=== PATIENT | male | born 1945 | race Caucasian/White ===

== ENCOUNTER 2016-09-06 10:34 | Inpatient (IN) ==
[2016-09-06 11:16] LABS: Basophils % 0.2 %; Eosinophils % 0.4 %; Hematocrit 49.1 % (37.5-50.1); Hemoglobin 16.6 g/dL (12.9-16.9); Immature Granulocytes % 0.5 % (0-4); Lymphocytes # 1.2 K/mcL (0.6-4.6); Lymphocytes % 11.3 %; Mean Corpuscular HGB Conc 33.8 g/dL (31.6-35.5); Mean Corpuscular Hemoglobin 31.7 pg (28.0-33.3); Mean Corpuscular Volume 93.7 fL (83.0-100.0); Mean Platelet Volume 10.4 fL (9.4-12.4); Monocytes % 9.1 %; Neutrophils # 8.2 K/mcL (1.6-8.9); Platelet Count 212 K/mcL (140-400); Red Blood Count 5.24 M/mcL (4.19-5.50); Red Cell Distribution Width 13.6 % (11.5-14.5); Segmented Neutrophils % 78.5 %
[2016-09-06] MEDS ORDERED: Clindamycin 600 MG/50 ML 600 MG/50 ML IV.SOLN IVPB ONE (11:16)
[2016-09-06 11:32] LABS: Alanine Aminotransferase 43 Units/L (0-55); Albumin 3.4 g/dL (3.5-5.0); Alkaline Phosphatase 104 Units/L (38-126); Aspartate Amino Transferase 23 Units/L (5-34); BUN/Creatinine Ratio 14 (6-26); Bilirubin,Total 0.7 mg/dL (0.2-1.2); Blood Urea Nitrogen 19 mg/dL (8-26); Calcium 9.4 mg/dL (8.6-10.8); Carbon Dioxide 22 mEq/L (19-29); Chloride 106 mEq/L (98-109); Globulin 3.3 g/dL (2.4-3.5); Glucose 157 mg/dL (70-99); Osmolality,Calculated 292 (280-300); Potassium 4.1 mEq/L (3.5-4.5); Sodium 138 mEq/L (136-145); Total Protein 6.7 g/dL (6.0-8.3); eGFR For African Americans > 60 (> 60); eGFR For Non-African Americans 51 (> 60)
[2016-09-06 12:37] LABS: C-Reactive Protein 7 mg/L (Less than 5)
[2016-09-06] MEDS ORDERED: 0.9 % Sodium Chloride 1,000 ML IVC ONE (12:46)
--- NOTE | 2016-09-06 12:52 | Emergency Department Note ---
Disposition Clinical Impression: Cellulitis Qualifiers: Site of cellulitis: extremity Site of cellulitis of extremity: lower extremity Laterality: left Qualified Code(s): L03.116 - Cellulitis of left lower limb Disposition: Admitted As Inpatient Condition: Good Referrals: Alfonso Shane MD [Primary Care Provider] - Forms: ED Satisfaction Letter Wound/Laceration HPI - General Chief Complaint: ED Wound/Laceration Stated Complaint: Wound Check Time Seen by Provider: 09/06/16 10:41 Source: patient, family Limitations: no limitations Nursing Notes Reviewed: Yes Vital Signs Reviewed: Yes - History of Present Illness HPI Narrative: Patient complains of wound to his left ankle has been going on for approximately 10 days. Patient states he seen his primary care physician 3 times for this states there is good worsen. Patient was started on Bactrim and Keflex 2 days ago he states his symptoms worse. Patient denies fevers or chills denies shortness of breath denies numbness and tingling. Patient denies prior history of similar symptoms. Written old areas swollen appears to be going down his leg. - Related Data Home Medications Medication Instructions Recorded Confirmed Aspirin 81 tab PO DAILY 02/03/15 09/06/16 Brimonidine 0.2% [Alphagan] 1 drop BOTH EYES BID 02/03/15 09/06/16 Cholecalciferol (Vitamin D3) 1 cap PO DAILY 02/03/15 09/06/16 [Vitamin D3] Finasteride [Proscar] 5 mg PO DAILY 02/03/15 09/06/16 GlipiZIDE XL (24 HR) [Glucotrol XL] 5 mg PO DAILY 02/03/15 09/06/16 Latanoprost [Xalatan] 1 drop BOTH EYES HS 02/03/15 09/06/16 Metformin HCl [Fortamet] 1,000 mg PO BID 02/03/15 09/06/16 Nebivolol [Bystolic] 2.5 mg PO DAILY 02/03/15 09/06/16 Ramipril [Altace] 5 mg PO DAILY 02/03/15 09/06/16 [place] Oil/[place]-3 Fatty Acids 1 cap PO DAILY 02/03/15 09/06/16 [Fish Oil 500 mg Softgel] Tamsulosin [Flomax] 0.4 mg PO DAILY 02/03/15 09/06/16 Cyclosporine [Restasis] 1 drop BOTH EYES BID 07/10/15 09/06/16 Fluticasone Propionate Nasal 50 mcg NS BID 07/10/15 09/06/16 [Flonase] Doxycycline 100 mg PO BID 09/06/16 09/06/16 Furosemide [Lasix] 20 mg PO DAILY PRN 09/06/16 09/06/16 Gabapentin [Neurontin] 100 mg PO HS PRN 09/06/16 09/06/16 Ipratropium/Albuterol Neb [Duoneb] 3 ml IH Q6HR 09/06/16 09/06/16 PredniSONE 10 mg PO DAILY 09/06/16 09/06/16 Sulfamethoxazole/Trimeth DS 1 tab PO BID 09/06/16 09/06/16 [Bactrim DS] Previous Rx's Medication Instructions Recorded Albuterol Sulfate [Albuterol 1 puff IH Q4HR PRN #1 puff 02/05/15 Inhaler] Allergies Allergy/AdvReac Type Severity Reaction Status Date / Time Shoqjvw-[id number]-Gwu Reductase Allergy See Verified 09/06/16 10:35 Inhibitor Comments [Statins] All systems ED: reviewed and negative except as stated. Past Medical History - Past Medical History Source: patient Medical history: Reports: cancer, COPD, diabetes, glaucoma, hyperlipidemia, hypertension, myocardial infarction Surgical history: Reports: knee replacement, other Psychiatric history: Reports: no psych history - Social History Smoking Status: Former smoker Smokeless Tobacco Status: No Alcohol use: Reports: occasionally Drug use: Reports: none Physical Exam - General Limitations: no limitations General appearance: alert - Head Head exam: atraumatic, normocephalic, normal inspection - Eye Eye exam: Present: normal appearance, PERRL, EOMI - ENT ENT exam: normal exam, normal oropharynx, mucous membranes moist - Neck Neck exam: Present: normal inspection, full ROM, trachea midline - Chest Chest inspection: Present: normal inspection, symmetric chest wall rise - Respiratory Respiratory exam: Present: normal lung sounds bilaterally - Cardiovascular Cardiovascular exam: Present: regular rate, normal rhythm, normal heart sounds - Abdominal Exam Abdominal exam: Present: soft, Non-Tender. Absent: tenderness, distention, guarding, rebound, rigidity - Extremities Exam Extremities exam: Present: normal inspection, full ROM. Absent: tenderness, pedal edema - Back Exam Back exam: Present: normal inspection, full ROM. Absent: tenderness - Neurological Exam Neurological exam: Present: alert, oriented X3 - Psychiatric Psychiatric exam: Present: normal affect, normal mood - Skin Skin exam: Present: warm, dry, intact, erythema Course Vital Signs Temperature 98.4 F 09/06/16 10:35 Pulse Rate 97 09/06/16 10:35 Respiratory Rate 22 09/06/16 10:35 Blood Pressure 123/81 09/06/16 10:35 O2 Sat by Pulse Oximetry 91 L 09/06/16 10:35 Temperature 98.4 F 09/06/16 10:35 Pulse Rate 71 09/06/16 12:09 Respiratory Rate 18 09/06/16 12:09 Blood Pressure 121/61 09/06/16 12:09 O2 Sat by Pulse Oximetry 93 L 09/06/16 12:09 Oxygen Delivery Oxygen Delivery Nasal Cannula Wound/Laceration - Differential Diagnosis Differential Diagnosis: Likely: abscess, abrasion, foreign body - Lab Data Lab results reviewed: Yes I reviewed the patient's lab results. Result diagrams: 09/06/16 11:10 09/06/16 11:10 Lab Results 09/06/16 09/06/16 09/06/16 Range/Units 11:10 11:10 11:10 WBC 10.4 (4.3-11.1) K/mcL RBC 5.24 (4.19-5.50) M/mcL Hgb 16.6 (12.9-16.9) g/dL Hct 49.1 (37.5-50.1) % MCV 93.7 (83.0-100.0) fL MCH 31.7 (28.0-33.3) pg MCHC 33.8 (31.6-35.5) g/dL RDW 13.6 (11.5-14.5) % Plt Count 212 (140-400) K/mcL MPV 10.4 (9.4-12.4) fL Immature Gran % 0.5 (0-4) % Seg Neutrophils % 78.5 % Lymphocytes % 11.3 % Monocytes % 9.1 % Eosinophils % 0.4 % Basophils % 0.2 % Neutrophils # 8.2 (1.6-8.9) K/mcL Lymphocytes # 1.2 (0.6-4.6) K/mcL Monocytes # 1.0 (0.0-1.3) K/mcL Eosinophils # 0.0 (0.0-0.6) K/mcL Basophils # 0.0 (0.0-0.2) K/mcL ESR (0-10) mm/hr Sodium 138 (136-145) mEq/L Potassium 4.1 (3.5-4.5) mEq/L Chloride 106 (98-109) mEq/L Carbon Dioxide 22 (19-29) mEq/L BUN 19 (8-26) mg/dL Creatinine 1.38 H (0.72-1.25) mg/dL Est GFR ( Amer) > 60 (> 60) Est GFR (Non-Af Amer) 51 L (> 60) BUN/Creatinine Ratio 14 (6-26) Glucose 157 H (70-99) mg/dL Calculated Osmolality 292 (280-300) Lactic Acid 3.7 H (0.5-2.2) mmol/L Calcium 9.4 (8.6-10.8) mg/dL Total Bilirubin 0.7 (0.2-1.2) mg/dL AST 23 (5-34) Units/L ALT 43 (0-55) Units/L Alkaline Phosphatase 104 (38-126) Units/L C-Reactive Protein 7 H (Less than 5) mg/L Serum Total Protein 6.7 (6.0-8.3) g/dL Albumin 3.4 L (3.5-5.0) g/dL Globulin 3.3 (2.4-3.5) g/dL Albumin/Globulin Ratio 1.0 L (1.1-2.2) 09/06/16 Range/Units 11:10 WBC (4.3-11.1) K/mcL RBC (4.19-5.50) M/mcL Hgb (12.9-16.9) g/dL Hct (37.5-50.1) % MCV (83.0-100.0) fL MCH (28.0-33.3) pg MCHC (31.6-35.5) g/dL RDW (11.5-14.5) % Plt Count (140-400) K/mcL MPV (9.4-12.4) fL Immature Gran % (0-4) % Seg Neutrophils % % Lymphocytes % % Monocytes % % Eosinophils % % Basophils % % Neutrophils # (1.6-8.9) K/mcL Lymphocytes # (0.6-4.6) K/mcL Monocytes # (0.0-1.3) K/mcL Eosinophils # (0.0-0.6) K/mcL Basophils # (0.0-0.2) K/mcL ESR 29 H (0-10) mm/hr Sodium (136-145) mEq/L Potassium (3.5-4.5) mEq/L Chloride (98-109) mEq/L Carbon Dioxide (19-29) mEq/L BUN (8-26) mg/dL Creatinine (0.72-1.25) mg/dL Est GFR ( Amer) (> 60) Est GFR (Non-Af Amer) (> 60) BUN/Creatinine Ratio (6-26) Glucose (70-99) mg/dL Calculated Osmolality (280-300) Lactic Acid (0.5-2.2) mmol/L Calcium (8.6-10.8) mg/dL Total Bilirubin (0.2-1.2) mg/dL AST (5-34) Units/L ALT (0-55) Units/L Alkaline Phosphatase (38-126) Units/L C-Reactive Protein (Less than 5) mg/L Serum Total Protein (6.0-8.3) g/dL Albumin (3.5-5.0) g/dL Globulin (2.4-3.5) g/dL Albumin/Globulin Ratio (1.1-2.2) - Radiology Data Radiology results reviewed: Yes I reviewed the patient's radiology results. Ankle X-Ray 09/06/16 11:01 IMPRESSION: No acute bony abnormalities. No x-ray evidence for osteomyelitis. Soft tissue swelling about the ankle. Clinically described sore to the medial left ankle not definitely evident radiographically. No soft tissue gas. D/ / 09/06/2016 11:59:33 Armando English MD / cydney Interpreting Provider: Armando English MD Critical Care Time Total Critical Care Time: 30 Attestation: Critical care performed: Time is exclusive of separately billable procedures. Time includes: direct patient care, patient reassessment, coordination of patient care, interpretation of data (laboratory data, radiology data, and respiratory data), review of patient's medical records, medical consultation and documentation of patient care. Procedures included in critical care time: Procedures excluded from critical care time:
[2016-09-06] MEDS ORDERED: Ipratropium/Albuterol Neb 3 ML IH ONE (14:00)
[2016-09-06] MEDS ORDERED: Naloxone 0.4 MG/ML INJ IVP PRN (17:43)
[2016-09-06] MEDS: Ipratropium/Albuterol Neb 3 ML IH SCH ×2 (18:12→22:03)
[2016-09-06] MEDS ORDERED: D5% in Water 1,000 ML IVC PRN (18:44)
[2016-09-06] MEDS ORDERED: Dextrose Gel 15 GM PO PRN ×2 (18:44)
[2016-09-06] MEDS ORDERED: *HR* Dextrose 50 % in Water (Syg) 50 ML SYRINGE IVP PRN (18:44)
--- NOTE | 2016-09-06 18:44 | Internal Med History&Physical ---
<Iman Sylvester - Last Filed: 09/06/16 18:58> Date of Encounter: 09/06/16 Time of Encounter: 17:00 Assessment and Plan (1) Cellulitis Current visit: Yes Status: Acute 1 presented with wound to left tibial area 1.5-2 cm in diameter. Started approximately 2 weeks ago as a blister he has been followed as an outpatient and been on Bactrim without any improvement. X-ray did reveal no soft tissue gas only soft tissue swelling about the ankle. Concerns for cellulitis we will consult podiatry 2 started on vancomycin and Unasyn 3 we will monitor CBC Qualifiers: Site of cellulitis: extremity Site of cellulitis of extremity: lower extremity Laterality: left Qualified Code(s): L03.116 - Cellulitis of left lower limb (2) MARGARITA (acute kidney injury) Current visit: Yes Status: Acute 1 present creatinine is 1.38 baseline appears to be less than 1. Patient has been on Bactrim as well as metformin glyburide and BERNARDINO inhibitor. We will hold these medications for now will give IV fluid overnight recheck creatinine in a.m. 2 avoid nephrotoxins 3 August her intake and output (3) DVT prophylaxis Current visit: Yes Status: Acute 1 Lovenox (4) History of coronary artery disease Current visit: No Status: Acute 1 patient has history of coronary artery disease with stent placement will continue with aspirin and statin beta jennifer will hold BERNARDINO inhibitor for now due to elevated creatinine (5) Diabetes Current visit: No Status: Chronic Patient has history of type 2 diabetes he is on metformin and glyburide at home. We will hold for now lactate is 3.7 creatinine 1.38. We will give IV fluids Accu-Cheks before meals at bedtime with sliding scale insulin as needed maintain postprandial less than 180 Qualifiers: Diabetes mellitus type: type 2 Diabetes mellitus complication status: without complication Diabetes mellitus custodial insulin use: without custodial use Qualified Code(s): E11.9 - Type 2 diabetes mellitus without complications Internal Medicine - H&P: HPI Chief complaint: Wound to left ankle Admitted From: Emergency Dept Plans for Post Hospital Care: Home History of present illness: Mr. Starks is a 71 year old male with medical history of diabetes coronary artery disease hypertension and CHF COPD. Patient has been experiencing a wound to left ankle for approximately 10 days. He states it started out as a blister that he is putting his socks only opened and has grown since then. He has been followed by his primary care physician and has been receiving Bactrim and Keflex for approximately 2 days without any improvement it seems to have worsened. He denies any fevers chills shortness of breath nausea vomiting or diarrhea. He presented to the ER with above complaints. Overall the ER lab work was obtained which did not show any leukocytosis however it did show elevated creatinine 1.3 a as well as a lactate of 3.7. X-rays of right ankle did reveal soft tissue swelling however no soft tissue gas noted. Patient was given clindamycin spending for further workup and evaluation. Upon assessment patient denies any pain or discomfort. He has his left foot elevated on a like it there is a round wound approximately 1.5-2 cm in diameter that has a hardened yellow area in the center with redness surrounding tissue there is no streaking the left foot is swollen is warm has brisk capillary refill palpable pulses. At present time patient appears to be hemodynamically stable. I reviewed this case with Dr. Stringer who agrees with plan Past Med Surg Social Fam HX - Past Medical History Medical history: cancer, COPD, diabetes, glaucoma, hyperlipidemia, hypertension , myocardial infarction Psychiatric history: no psych history - Past Surgical History Surgical History: knee replacement, other - Social History Smoking Status: Former smoker Smokeless Tobacco Status: No Alcohol use: occasionally Drug use: none - Family History Mother Age at : 98 Cause of : natural causes Hx Family Cardiac Disorders: No Hx Family Respiratory Disorders: No Hx Family Cancer: No Hx Family GI Disorders: No Hx Family Genitourinary Disorders: No Hx Family Endocrine Disorder: No Hx Family Musculoskeletal Disorders: No Hx Family Neuromuscular Disorders: No Hx Family Neurologic Disorders: No Hx Family HEENT Disorders: No Hx Family Autoimmune Disorders: No Hx Family Reproductive Disorders: No Hx Family Psychosocial Disorders: No Hx Family Medical Disorders: No Father Adopted: No Family Member Ethnicity: Non- Living Status: Age at : 84 Cause of : CHF Hx Family Cardiac Disorders: Yes Hx Family Respiratory Disorders: No Hx Family Cancer: No Hx Family GI Disorders: No Hx Family Genitourinary Disorders: No Hx Family Endocrine Disorder: No Hx Family Musculoskeletal Disorders: No Hx Family Neuromuscular Disorders: No Hx Family Neurologic Disorders: No Hx Family HEENT Disorders: No Hx Family Autoimmune Disorders: No Hx Family Reproductive Disorders: No Hx Family Psychosocial Disorders: No Hx Family Medical Disorders: No Internal Medicine - H&P: Meds Aspirin 81 tab PO DAILY 02/03/15 [History] Brimonidine 0.2% [Alphagan] 1 drop BOTH EYES BID 02/03/15 [History] Cholecalciferol (Vitamin D3) [Vitamin D3] 1 cap PO DAILY 02/03/15 [History] Finasteride [Proscar] 5 mg PO DAILY 02/03/15 [History] GlipiZIDE XL (24 HR) [Glucotrol XL] 5 mg PO DAILY 02/03/15 [History] Latanoprost [Xalatan] 1 drop BOTH EYES HS 02/03/15 [History] Metformin HCl [Fortamet] 1,000 mg PO BID 02/03/15 [History] Nebivolol [Bystolic] 2.5 mg PO DAILY 02/03/15 [History] Ramipril [Altace] 5 mg PO DAILY 02/03/15 [History] [place] Oil/[place]-3 Fatty Acids [Fish Oil 500 mg Softgel] 1 cap PO DAILY [History] Tamsulosin [Flomax] 0.4 mg PO DAILY 02/03/15 [History] Albuterol Sulfate [Albuterol Inhaler] 1 puff IH Q4HR PRN #1 puff 02/05/15 [Rx] Cyclosporine [Restasis] 1 drop BOTH EYES BID 07/10/15 [History] Fluticasone Propionate Nasal [Flonase] 50 mcg NS BID 07/10/15 [History] Doxycycline 100 mg PO BID 09/06/16 [History] Furosemide [Lasix] 20 mg PO DAILY PRN 09/06/16 [History] Gabapentin [Neurontin] 100 mg PO HS PRN 09/06/16 [History] Ipratropium/Albuterol Neb [Duoneb] 3 ml IH Q6HR 09/06/16 [History] PredniSONE 10 mg PO DAILY 09/06/16 [History] Sulfamethoxazole/Trimeth DS [Bactrim DS] 1 tab PO BID 09/06/16 [History] Allergies Wsexyqh-Ttw-Nus Reductase Inhibitor [Statins] Allergy (Verified 09/06/16 10:35) See Comments foot, ankle pain sore throat All Systems PM: A 10-system review of systems was performed and is negative for pertinent findings except as documented above in the HPI. - Constitutional Constitutional: no chills, no fever(s), no night sweats - EENT Eyes: no change in vision, no discharge, no pain, no photophobia Nose, mouth and throat: no dysphagia, no nasal discharge, no neck pain, no sore throat - Cardiovascular Cardiovascular ROS IM: no chest pain, no diaphoresis, no dyspnea, no lightheadedness, no palpitations, no syncope - Respiratory Respiratory: no cough, no dyspnea, no wheezing, no excessive phlegm production - Gastrointestinal Gastrointestinal: no abdominal pain, no diarrhea, no hematemesis, no hematochezia, no melena, no nausea, no vomiting - Integumentary Integumentary IM: non-healing lesions, skin ulcer - Neurological Neurological ROS: no confusion, no convulsions, no focal weakness, no numbness, no tingling, no tremor(s) - Constitutional Vitals: Temp Pulse Resp BP Pulse Ox 98.0 F 91 16 127/61 91 L 09/06/16 15:09 09/06/16 15:09 09/06/16 18:14 09/06/16 15:09/06/16 18:14 General appearance: Present: A&O X 3 - Head Head exam: Present: atraumatic, normocephalic - Eye Eye exam: Present: PERRL, conjuntiva pink, sclera anicteric Pupils: Present: PERRL - Neck Neck exam general surgery: Present: supple, trachea midline. Absent: lymphadenopathy - Respiratory Respiratory exam: Present: CTAB. Absent: accessory muscle use, rales, rhonchi, wheezes - Cardiovascular Cardiovascular exam: Present: RRR, +S1, +S2. Absent: diastolic murmur, gallop, rubs, systolic murmur - GI/Abdominal GI/Abdominal exam: Present: normal bowel sounds, soft, no peritoneal signs. Absent: distended, tenderness - Extremities Exam Extremities exam: Present: warm, radial pulses palpable and symetrical. Absent : calf tenderness, cyanotic, pedal edema - Expanded Lower Extremities Exam Ankle exam: Present: abrasion, swelling (Wound to left tibial area) - Neurological Exam Neurological exam: Present: CN II-XII intact, oriented X3, no focal deficits. Absent: pronater drift, facial droop, speech deficit - Skin Skin exam: Present: dry, erythema, intact Internal Med - H&P Results - Labs CBC & Chem 7: 09/06/16 11:10 09/06/16 11:10 - Diagnostic Studies Other Images Additional comments: Ankle X-Ray 09/06/16 11:01 IMPRESSION: No acute bony abnormalities. No x-ray evidence for osteomyelitis. Soft tissue swelling about the ankle. Clinically described sore to the medial left ankle not definitely evident radiographically. No soft tissue gas. D/ / 09/06/2016 11:59:33 Armando English MD / cydney Interpreting Provider: Armando English MD <Dg Stringer - Last Filed: 09/06/16 19:11> Internal Medicine - H&P: HPI History of present illness: Mr. Starks is a 71 year old male All Systems PM: A 10-system review of systems was performed and is negative for pertinent findings except as documented above in the HPI. - Constitutional Vitals: Temp Pulse Resp BP Pulse Ox 97.9 F 88 16 111/54 91 L 09/06/16 19:03 09/06/16 19:03 09/06/16 19:03 09/06/16 19:03 09/06/16 19:03 Internal Med - H&P Results - Labs CBC & Chem 7: 09/06/16 11:10 09/06/16 11:10 - Attending Attestation I examined this patient and my medical decision-making was reviewed with the Advanced Practice Nurse on 09/06/16. I agree with the documented findings, disposition and treatment plan as described except to the extent set forth below. Mr. Flores is a 71 y/o male presented to ED due to nonhealing wound on L medial malleolus. Pt stated it began with a blister that came off with his sock. It had progressed to an open area and he took 3 days of PO abx. It worsened so he came to ED. In ED he was evaluated and admitted. Exam Alert. Comfortable Heart reg Lungs clear L medial malleolus - approx 2cm diameter wound with raised edges. Erythema - no fluctuance or crepitus. Foot warm. I/P 1. Cellulitis 2. Wound Podiatry eval. IV abx Further diagnoses and plan as detailed above in H&P
[2016-09-06 19:21] LABS: Hemoglobin A1C 9.2 %
[2016-09-06] MEDS ORDERED: Latanoprost 2.5 ML BOTTLE BOTH EYES SCH (21:00)
[2016-09-06] MEDS ORDERED: (Cyclosporine [Restasis] 1 DROP) OP SCH (21:00)
[2016-09-06] MEDS: 0.9 % Sodium Chloride 1,000 ML IVC SCH (21:28)
[2016-09-06] MEDS: Fluticasone Propionate Nasal 50 MCG/SPRAY BOTTLE NS SCH (21:28)
[2016-09-06] MEDS: Insulin LISPRO 300 UNITS/3 ML VIAL SQ SCH (21:29)
[2016-09-06] MEDS: Latanoprost 2.5 ML BOTTLE OP SCH (21:47)
[2016-09-06] MEDS ORDERED: Vancomycin 1,250 MG in D5% in Water 250 ML IVPB SCH (22:00)
[2016-09-06] MEDS: Finasteride 5 MG TABLET PO SCH (23:11)
[2016-09-07] MEDS: Ampicillin/Sulbactam 3,000 MG in 0.9 % Sodium Chloride Mini Bag 100 ML IVPB SCH ×4 (00:52→17:40)
[2016-09-07] MEDS: Ipratropium/Albuterol Neb 3 ML IH SCH ×4 (03:44→20:52)
[2016-09-07 04:48] LABS: Basophils % 0.2 %; Eosinophils % 0.4 %; Hematocrit 44.1 % (37.5-50.1); Immature Granulocytes % 0.5 % (0-4); Lymphocytes % 23.5 %; Mean Corpuscular HGB Conc 33.1 g/dL (31.6-35.5); Mean Corpuscular Hemoglobin 31.2 pg (28.0-33.3); Mean Corpuscular Volume 94.2 fL (83.0-100.0); Mean Platelet Volume 10.8 fL (9.4-12.4); Monocytes # 0.8 K/mcL (0.0-1.3); Monocytes % 10.1 %; Neutrophils # 5.5 K/mcL (1.6-8.9); Platelet Count 189 K/mcL (140-400); Red Blood Count 4.68 M/mcL (4.19-5.50); Red Cell Distribution Width 13.5 % (11.5-14.5); Segmented Neutrophils % 65.3 %
[2016-09-07 04:49] LABS: Hemoglobin 14.6 g/dL (12.9-16.9)
[2016-09-07 04:58] LABS: BUN/Creatinine Ratio 16 (6-26); Blood Urea Nitrogen 16 mg/dL (8-26); Calcium 8.7 mg/dL (8.6-10.8); Carbon Dioxide 20 mEq/L (19-29); Chloride 112 mEq/L (98-109); Glucose 116 mg/dL (70-99); Osmolality,Calculated 296 (280-300); Potassium 4.1 mEq/L (3.5-4.5); Sodium 142 mEq/L (136-145); eGFR For African Americans > 60 (> 60); eGFR For Non-African Americans > 60 (> 60)
[2016-09-07] MEDS ORDERED: Vancomycin (wt based) 1,000 MG VIAL IVPB SCH (06:00)
[2016-09-07] MEDS: *HR* Heparin 5,000 UNIT/ML VIAL SQ SCH ×2 (06:13→17:39)
[2016-09-07] MEDS: Insulin LISPRO 300 UNITS/3 ML VIAL SQ SCH ×4 (08:45→21:38)
[2016-09-07] MEDS: Cholecalciferol (D-3) 1,000 UNIT TABLET PO SCH (08:55)
[2016-09-07] MEDS: Aspirin 81 MG TAB.CHEW PO SCH (08:55)
[2016-09-07] MEDS: Fluticasone Propionate Nasal 50 MCG/SPRAY BOTTLE NS SCH ×2 (08:56→21:38)
[2016-09-07] MEDS: predniSONE 20 MG TABLET PO SCH (08:56)
[2016-09-07] MEDS: (Salmon Oil/Omega-3 Fatty Acids [Fish Oil 500 Mg Soft PO SCH (08:56)
[2016-09-07] MEDS ORDERED: Gabapentin 100 MG CAPSULE PO PRN (09:14)
[2016-09-07] MEDS: Vancomycin 1,000 MG in D5% in Water 250 ML IVPB SCH ×2 (13:28→13:43)
--- NOTE | 2016-09-07 18:12 | Internal Med Progress Note ---
Date of Encounter: 09/07/16 Time of Encounter: 10:30 - Assessment and plan (1) Cellulitis Current Visit: Yes Status: Acute Assessment and plan: Podiatry on board. No leukocytosis. Mild lactic acidosis noted, trending down. Vital signs are stable. Inflammatory markers elevated, will trend. Continue Unasyn and vancomycin. Plain films negative for osteomyelitis. Acute kidney injury resolved. We will defer to podiatry recommendations. Distal pulses weak but capillary refill brisk ITS Impressions Ankle X-Ray 09/06/16 11:01 IMPRESSION: No acute bony abnormalities. No x-ray evidence for osteomyelitis. Soft tissue swelling about the ankle. Clinically described sore to the medial left ankle not definitely evident radiographically. No soft tissue gas. D/ / 09/06/2016 11:59:33 Armando English MD / cydney Interpreting Provider: Armando English MD Qualifiers: Site of cellulitis: extremity Site of cellulitis of extremity: lower extremity Laterality: left Qualified Code(s): L03.116 - Cellulitis of left lower limb (2) Lactic acidosis Current Visit: Yes Status: Acute Assessment and plan: Trending down, will monitor (3) Diabetes Current Visit: No Status: Chronic Assessment and plan: Uncontrolled with an A1c of 9.2%. Continue tight glycemic control while admitted. Continue sliding scale, home medications have been held. Patient endorsing noncompliance with his home regimen. 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 On examination, patient resting supine in bed. Patient denies pain at this time. He states his wound hurts in the middle but not around the edges. He states he is eating well and denies concerns. - Constitutional Vitals: Temp Pulse Resp BP Pulse Ox 98.4 F 70 16 113/66 93 L 09/07/16 16:28 09/07/16 16:28 09/07/16 16:28 09/07/16 16:28 09/07/16 16:28 General appearance: Present: A&O X 3, pleasant, no acute distress, answers questions appropriately - Head Head exam: Present: atraumatic, normocephalic - Eye Eye exam: Present: PERRL, conjuntiva pink, sclera anicteric Pupils: Present: PERRL - Neck Neck exam general surgery: Present: supple, trachea midline. Absent: lymphadenopathy - Respiratory Respiratory exam: Present: CTAB. Absent: accessory muscle use, rales, respiratory distress, rhonchi, wheezes - Cardiovascular Cardiovascular exam: Present: RRR, +S1, +S2. Absent: diastolic murmur, gallop, rubs, systolic murmur - GI/Abdominal GI/Abdominal exam: Present: normal bowel sounds, soft, no peritoneal signs. Absent: distended, tenderness - Extremities Exam Extremities exam: Present: warm, radial pulses palpable and symetrical. Absent : calf tenderness, cyanotic, pedal edema - Expanded Lower Extremities Exam Lower Leg exam: Present: erythema, tenderness. Absent: normal inspection Neuro vascular tendon exam: Present: decreased fine/light touch, pulse deficit ( weak pulse left foot) Gait: Present: not tested/not observed - Neurological Exam Neurological exam: Present: alert, CN II-XII intact, oriented X3, no focal deficits, strengths equal and symetr throughout. Absent: pronater drift, facial droop, speech deficit - Skin Skin exam: Present: dry, intact, normal color, warm - Expanded Skin Exam Type of lesion: Present: abrasion Distribution of rash: Present: LLE Description of rash: Present: crusting, erythematous, tenderness (in center) Internal Medicine: Result - Labs CBC & Chem 7: 09/07/16 04:13 09/07/16 04:13 Labs: Short CBC 09/07/16 Range/Units 04:13 WBC 8.4 (4.3-11.1) K/mcL Hgb 14.6 D (12.9-16.9) g/dL Hct 44.1 (37.5-50.1) % Plt Count 189 (140-400) K/mcL Neutrophils # 5.5 (1.6-8.9) K/mcL BMP 09/07/16 04:13 Sodium 142 Potassium 4.1 Chloride 112 H Carbon Dioxide 20 BUN 16 Creatinine 0.99 Glucose 116 H Calcium 8.7 Consult Discharge Plan - Plan Referrals: Alfonso Shane MD [Primary Care Provider] -
[2016-09-07] MEDS: Finasteride 5 MG TABLET PO SCH (21:37)
[2016-09-07] MEDS: Latanoprost 2.5 ML BOTTLE OP SCH (21:37)
[2016-09-08] MEDS: Ampicillin/Sulbactam 3,000 MG in 0.9 % Sodium Chloride Mini Bag 100 ML IVPB SCH ×4 (02:22→20:37)
[2016-09-08] MEDS: 0.9 % Sodium Chloride 1,000 ML IVC SCH ×4 (02:23→18:14)
[2016-09-08] MEDS: Vancomycin 1,000 MG in D5% in Water 250 ML IVPB SCH ×2 (03:17→15:10)
[2016-09-08] MEDS: Ipratropium/Albuterol Neb 3 ML IH SCH ×4 (04:38→22:32)
[2016-09-08 04:47] LABS: Basophils % 0.1 %; Eosinophils % 0.6 %; Hematocrit 45.6 % (37.5-50.1); Hemoglobin 14.8 g/dL (12.9-16.9); Immature Granulocytes % 0.3 % (0-4); Lymphocytes # 1.8 K/mcL (0.6-4.6); Lymphocytes % 25.9 %; Mean Corpuscular HGB Conc 32.5 g/dL (31.6-35.5); Mean Corpuscular Hemoglobin 30.8 pg (28.0-33.3); Mean Corpuscular Volume 94.8 fL (83.0-100.0); Mean Platelet Volume 10.6 fL (9.4-12.4); Monocytes # 0.6 K/mcL (0.0-1.3); Neutrophils # 4.3 K/mcL (1.6-8.9); Platelet Count 170 K/mcL (140-400); Red Blood Count 4.81 M/mcL (4.19-5.50); Red Cell Distribution Width 13.4 % (11.5-14.5); Segmented Neutrophils % 64.1 %
[2016-09-08 04:52] LABS: BUN/Creatinine Ratio 15 (6-26); Blood Urea Nitrogen 16 mg/dL (8-26); C-Reactive Protein 7 mg/L (Less than 5); Calcium 8.6 mg/dL (8.6-10.8); Carbon Dioxide 21 mEq/L (19-29); Chloride 111 mEq/L (98-109); Glucose 224 mg/dL (70-99); Osmolality,Calculated 296 (280-300); Potassium 3.9 mEq/L (3.5-4.5); Sodium 139 mEq/L (136-145); eGFR For African Americans > 60 (> 60); eGFR For Non-African Americans > 60 (> 60)
[2016-09-08] MEDS: *HR* Heparin 5,000 UNIT/ML VIAL SQ SCH ×2 (05:46→17:10)
[2016-09-08] MEDS: Fluticasone Propionate Nasal 50 MCG/SPRAY BOTTLE NS SCH ×2 (08:20→20:40)
[2016-09-08] MEDS: Insulin LISPRO 300 UNITS/3 ML VIAL SQ SCH ×4 (08:21→20:43)
[2016-09-08] MEDS: Aspirin 81 MG TAB.CHEW PO SCH (08:22)
[2016-09-08] MEDS: predniSONE 20 MG TABLET PO SCH (08:22)
[2016-09-08] MEDS: Cholecalciferol (D-3) 1,000 UNIT TABLET PO SCH (08:22)
[2016-09-08] MEDS: (Salmon Oil/Omega-3 Fatty Acids [Fish Oil 500 Mg Soft PO SCH (08:25)
--- NOTE | 2016-09-08 10:27 | Arterial Study Report ---
LE Arterial Physiologic Study Patient Name:Nilton Starks Order Number:[id number] Procedure Date:09/08/2016 Date:1945ge:71 yrs Gender:Male Lt BP:128 / mmHg Rt.BP:119 / mmHgHeart Rate: Location:[facility] OP Room #: Candy Maker Helper:Wendy Groves Referring MD:Star Daley DPM police officer:Alfonso Shane MD Reading MD:Lisandro Lira MD , [facility] Risk Factors Yes/No Hypertension Yes Diabetes Yes Hypercholesterolemia No Hx of CAD/PTCA Yes Impressions: 1) Right lower extremity waveform demonstrates mildly diminished hemodynamics. 2) Right Ankle Brachial Index demonstrates mildly occlusive disease. 1) Left lower extremity waveform demonstrates moderately diminished hemodynamics. 2) Left Ankle Brachial Index demonstrates moderately occlusive disease. Findings LE Arterial Physiologic Exam: Segmental Pressures: Right: The right high thigh pressure is 183 mmHg with an index of 1.43. The right above knee pressure is 140 mmHg with an index of 1.09. The right below knee pressure is 128 mmHg with an index of 1. The right posterior tibial pressure is 112 mmHg with an index of 0.88. The right dorsalis pedis pressure is 111 mmHg with an index of 0.87. Left: The left high thigh pressure is 112 mmHg with an index of 0.88. The left above knee pressure is 69 mmHg with an index of 0.54. The left below knee pressure is 65 mmHg with an index of 0.51. The left posterior tibial pressure is 82 mmHg with an index of 0.64. The left dorsalis pedis pressure is 76 mmHg with an index of 0.59. PVR: Right: The PVR waveforms are mildly diminished in the right high thigh, right lower thigh, right calf and right ankle. Left: The PVR waveforms are mildly diminished in the left high thigh and left lower thigh and moderately diminished in the left calf and left ankle. Segmental Pressures Side Location Pressure Index Result Right High Thigh 183 1.43 Right Above Knee 140 1.09 Right Below Knee 128 1.00 Right Posterior Tibial 112 0.88 Right Dorsalis Pedis 111 0.87 Left High Thigh 112 0.88 Left Above Knee 69 0.54 Left Below Knee 65 0.51 Left Posterior Tibial 82 0.64 Left Dorsalis Pedis 76 0.59 Ankle Brachial Index Right Systolic Diastolic SHELBY Brachial 119 0.88 Dorsalis Pedis 111 0.87 Posterior Tibial 112 0.88 Left Systolic Diastolic SHELBY Brachial 128 0.64 Dorsalis Pedis 76 0.59 Posterior Tibial 82 0.64 Updated by Lisandro Lira MD, FACS on 09/08/2016 10:22:18 AM with Status of Final Lisandro Lira MD electronically signed on 09/08/2016 10:22:48 AM with status of Final
[2016-09-08] MEDS: Acetaminophen 325 MG TABLET PO PRN (11:29)
--- NOTE | 2016-09-08 14:16 | Internal Med Progress Note ---
Date of Encounter: 09/08/16 Time of Encounter: 12:30 - Assessment and plan (1) Cellulitis Current Visit: Yes Status: Acute Assessment and plan: Podiatry on board. No leukocytosis. Mild lactic acidosis resolved. Vital signs are stable. Inflammatory markers trending down and improving. Continue Unasyn and vancomycin. Plain films negative for osteomyelitis. Acute kidney injury resolved. We will defer to podiatry recommendations for plan of care and antibiotic treatment. Distal pulses weak but capillary refill brisk. Arterial study of lower extremities revealing mild occlusion to right leg/ankle with moderate occlusion to left leg/left ankle. ITS Impressions Ankle X-Ray 09/06/16 11:01 IMPRESSION: No acute bony abnormalities. No x-ray evidence for osteomyelitis. Soft tissue swelling about the ankle. Clinically described sore to the medial left ankle not definitely evident radiographically. No soft tissue gas. D/ / 09/06/2016 11:59:33 Armando English MD / cydney Interpreting Provider: Armando English MD arterial physiological study impressions: Right lower extremity waveform demonstrates mildly diminished hemodynamics. Right ankle-brachial and ask demonstrates mildly occlusive disease. Left lower extremity waveform demonstrates moderately diminished hemodynamics. Left ankle-brachial index demonstrates moderately occlusive disease. Qualifiers: Site of cellulitis: extremity Site of cellulitis of extremity: lower extremity Laterality: left Qualified Code(s): L03.116 - Cellulitis of left lower limb (2) Lactic acidosis Current Visit: Yes Status: Resolved (3) Diabetes Current Visit: No Status: Chronic Assessment and plan: Uncontrolled with an A1c of 9.2%. Continue tight glycemic control while admitted. Continue sliding scale, home medications have been held. Patient endorsing noncompliance with his home regimen. Qualifiers: Diabetes mellitus type: type 2 Diabetes mellitus complication status: without complication Diabetes mellitus long term care social worker insulin use: without custodial use Qualified Code(s): E11.9 - Type 2 diabetes mellitus without complications (4) History of coronary artery disease Current Visit: No Status: Chronic Assessment and plan: Patient denies chest pain or shortness of breath (5) DVT prophylaxis Current Visit: Yes Status: Acute Assessment and plan: Subcutaneous heparin (6) MARGARITA (acute kidney injury) Current Visit: Yes Status: Resolved - Subjective Interval history: Patient seen and examined. On examination, patient sitting upright in bed. Patient denies pain at this time. He states his thumb hurt earlier due to his arthritis, but resolved with tylenol. He states he is eating well and denies concerns. - Constitutional Vitals: Temp Pulse Resp BP Pulse Ox 98.1 F 69 16 144/65 93 L 09/08/16 11:51 09/08/16 11:51 09/08/16 11:51 09/08/16 11:51 09/08/16 11:51 General appearance: Present: A&O X 3, pleasant, no acute distress, answers questions appropriately - Head Head exam: Present: atraumatic, normocephalic - Eye Eye exam: Present: PERRL, conjuntiva pink, sclera anicteric Pupils: Present: PERRL - Neck Neck exam general surgery: Present: supple, trachea midline. Absent: lymphadenopathy - Respiratory Respiratory exam: Present: CTAB. Absent: accessory muscle use, rales, respiratory distress, rhonchi, wheezes - Cardiovascular Cardiovascular exam: Present: RRR, +S1, +S2. Absent: diastolic murmur, gallop, rubs, systolic murmur - GI/Abdominal GI/Abdominal exam: Present: normal bowel sounds, soft, no peritoneal signs. Absent: distended, tenderness - Extremities Exam Extremities exam: Present: warm, radial pulses palpable and symetrical. Absent : calf tenderness, cyanotic, pedal edema - Expanded Lower Extremities Exam Lower Leg exam: Present: erythema, tenderness. Absent: normal inspection, swelling Ankle exam: Present: erythema. Absent: normal inspection Foot/Toe exam: Present: erythema Neuro vascular tendon exam: Present: decreased fine/light touch, pulse deficit. Absent: abnormal cap refill, no vascular compromise Gait: Present: not tested/not observed - Neurological Exam Neurological exam: Present: alert, CN II-XII intact, oriented X3, no focal deficits, strengths equal and symetr throughout. Absent: pronater drift, facial droop, speech deficit - Skin Skin exam: Present: dry, intact, normal color, warm Internal Medicine: Result - Labs CBC & Chem 7: 09/08/16 04:34 09/08/16 04:34 Labs: Short CBC 09/08/16 Range/Units 04:34 WBC 6.8 (4.3-11.1) K/mcL Hgb 14.8 (12.9-16.9) g/dL Hct 45.6 (37.5-50.1) % Plt Count 170 (140-400) K/mcL Neutrophils # 4.3 (1.6-8.9) K/mcL BMP 09/08/16 04:34 Sodium 139 Potassium 3.9 Chloride 111 H Carbon Dioxide 21 BUN 16 Creatinine 1.09 Glucose 224 H Calcium 8.6 Consult Discharge Plan - Plan Referrals: Alfonso Shane MD [Primary Care Provider] - 09/15/16 1:15 pm
--- NOTE | 2016-09-08 17:13 | Vascular/Endovasc Consult Note ---
Date of Encounter: 09/08/16 Time of Encounter: 17:10 Assessment and Plan (1) PAD (peripheral artery disease) Current Visit: Yes Status: Acute The patient is a markedly abnormal physical exam and markedly abnormal noninvasive testing. The degree of ischemia precludes successful wound healing with conservative measures. Because of this have recommended angiography and probable endovascular intervention. I reviewed the potential risks and benefits of palpitations and alternatives with the patient. He agrees to proceed. We'll plan on angiography for tomorrow afternoon.. (2) Acute exacerbation of chronic obstructive airways disease Current Visit: No Status: Chronic (3) Diabetes Current Visit: No Status: Chronic Qualifiers: Diabetes mellitus type: type 2 Diabetes mellitus complication status: with circulatory complication Diabetes mellitus complication detail: with peripheral angiopathy without gangrene Diabetes mellitus joint terminal attack controller insulin use : without joint terminal attack controller use Qualified Code(s): E11.51 - Type 2 diabetes mellitus with diabetic peripheral angiopathy without gangrene - History of Present Illness Consult date: 09/08/16 Requesting physician: Star Daley Consult reason: Nonhealing left leg wound/PAD Chief complaint: Nonhealing left leg wound History of present illness: Mr. Starks is a 71 year old male Recently admitted for evaluation and treatment of a left leg wound. Patient also has underlying COPD and a past history of coronary artery disease and status post coronary artery stent angioplasty. Approximately 10 days ago the patient identified a wound on the lateral aspect of his left leg. He denies any history of trauma. He has not had any similar type of wounds. He does not have antecedent history of claudication but his ambulation distance is dramatically reduced because of shortness of breath and bilateral hip pain. He estimates his walking distance to be no more than 50 yards. He denies any ischemic rest pain or nocturnal rest pain. Noninvasive study was performed earlier today. This demonstrates a severe decrease in his ankle brachial index on the left with markedly diminished ankle brachial index and waveforms. There is relatively normal findings of the right lower extremity. Past Med Surg Social Fam HX - Past Medical History Medical history: cancer, COPD, diabetes, glaucoma, hyperlipidemia, hypertension , myocardial infarction Psychiatric history: no psych history - Past Surgical History Surgical History: angioplasty/stent (Right coronary artery stent angioplasty at [facility] 1994), knee replacement, other - Social History Smoking Status: Former smoker Smokeless Tobacco Status: No Alcohol use: occasionally Drug use: none - Family History Mother Age at : 98 Cause of : natural causes Hx Family Cardiac Disorders: No Hx Family Respiratory Disorders: No Hx Family Cancer: No Hx Family GI Disorders: No Hx Family Genitourinary Disorders: No Hx Family Endocrine Disorder: No Hx Family Musculoskeletal Disorders: No Hx Family Neuromuscular Disorders: No Hx Family Neurologic Disorders: No Hx Family HEENT Disorders: No Hx Family Autoimmune Disorders: No Hx Family Reproductive Disorders: No Hx Family Psychosocial Disorders: No Hx Family Medical Disorders: No Father Adopted: No Family Member Ethnicity: Non- Living Status: Age at : 84 Cause of : CHF Hx Family Cardiac Disorders: Yes Hx Family Respiratory Disorders: No Hx Family Cancer: No Hx Family GI Disorders: No Hx Family Genitourinary Disorders: No Hx Family Endocrine Disorder: No Hx Family Musculoskeletal Disorders: No Hx Family Neuromuscular Disorders: No Hx Family Neurologic Disorders: No Hx Family HEENT Disorders: No Hx Family Autoimmune Disorders: No Hx Family Reproductive Disorders: No Hx Family Psychosocial Disorders: No Hx Family Medical Disorders: No Medications and Allergies Aspirin 81 tab PO DAILY 02/03/15 [History] Brimonidine 0.2% [Alphagan] 1 drop BOTH EYES BID 02/03/15 [History] Cholecalciferol (Vitamin D3) [Vitamin D3] 1 cap PO DAILY 02/03/15 [History] Finasteride [Proscar] 5 mg PO DAILY 02/03/15 [History] GlipiZIDE XL (24 HR) [Glucotrol XL] 5 mg PO DAILY 02/03/15 [History] Latanoprost [Xalatan] 1 drop BOTH EYES HS 02/03/15 [History] Metformin HCl [Fortamet] 1,000 mg PO BID 02/03/15 [History] Nebivolol [Bystolic] 2.5 mg PO DAILY 02/03/15 [History] Ramipril [Altace] 5 mg PO DAILY 02/03/15 [History] [place] Oil/[place]-3 Fatty Acids [Fish Oil 500 mg Softgel] 1 cap PO DAILY [History] Tamsulosin [Flomax] 0.4 mg PO DAILY 02/03/15 [History] Albuterol Sulfate [Albuterol Inhaler] 1 puff IH Q4HR PRN #1 puff 02/05/15 [Rx] Cyclosporine [Restasis] 1 drop BOTH EYES BID 07/10/15 [History] Fluticasone Propionate Nasal [Flonase] 50 mcg NS BID 07/10/15 [History] Doxycycline 100 mg PO BID 09/06/16 [History] Furosemide [Lasix] 20 mg PO DAILY PRN 09/06/16 [History] Gabapentin [Neurontin] 100 mg PO HS PRN 09/06/16 [History] Ipratropium/Albuterol Neb [Duoneb] 3 ml IH Q6HR 09/06/16 [History] PredniSONE 10 mg PO DAILY 09/06/16 [History] Sulfamethoxazole/Trimeth DS [Bactrim DS] 1 tab PO BID 09/06/16 [History] Docusate Sodium [Stool Softener] mg PO BID 09/07/16 [History] PredniSONE [Deltasone] 10 mg PO DAILY 09/07/16 [History] Allergies Xpouekb-Jyd-Kfi Reductase Inhibitor [Statins] Allergy (Verified 09/06/16 10:35) See Comments foot, ankle pain sore throat All Systems Review: A 10-system review of systems was performed and is negative for pertinent findings except as documented above in the HPI. Exam Vital Signs, Last 4 Hours Temp Pulse Resp BP Pulse Ox 09/08/16 15:59 16 95 09/08/16 15:31 98.0 F 68 16 145/56 94 L General: Present: Conversant, No Apparent Distress, Well developed, Well nourished HEENT: Present: Atraumatic, Normocephaly, Trachea midline, Pupils equal Neck: Absent: JVD, Left Carotid bruit, Right Carotid bruit, Midline deformity, Tracheal deviation Cardiac: Present: Reg Rate and Rhythm, Normal S1 and S2, No Murmur. Absent: Irregular Rhythm Lungs: Present: Decreased breath sounds Neuro: Present: Alert and responsive, No focal deficits noted, Cranial nerves grossly intact Abdomen: Present: Soft, Non-tender. Absent: Hepatosplenomegaly, Masses Vascular: Present: Pulse, absent (There are no palpable pulses at the left popliteal or ankle level.), Pulse, normal (Patient has palpable pulses at the femoral, popliteal, and pedal locations in the right lower extremity.), Other ( The patient has a dressing left ankle and foot area. A photograph of the wound was evaluated.) Skin: Present: No rashes noted on visualized skin Consult Discharge Plan - Plan Referrals: Alfonso Shane MD [Primary Care Provider] - 09/15/16 1:15 pm
[2016-09-08] MEDS: Latanoprost 2.5 ML BOTTLE OP SCH (20:39)
[2016-09-08] MEDS: Finasteride 5 MG TABLET PO SCH (20:40)
[2016-09-09] MEDS: 0.9 % Sodium Chloride 1,000 ML IVC SCH ×3 (00:13→21:29)
[2016-09-09] MEDS: Ampicillin/Sulbactam 3,000 MG in 0.9 % Sodium Chloride Mini Bag 100 ML IVPB SCH ×4 (02:54→21:30)
[2016-09-09] MEDS: Vancomycin 1,000 MG in D5% in Water 250 ML IVPB SCH ×2 (02:55→18:50)
[2016-09-09] MEDS: Ipratropium/Albuterol Neb 3 ML IH SCH ×4 (04:50→21:19)
[2016-09-09 04:54] LABS: INR 1.1; Prothrombin Time 12.1 Seconds (9.4-12.1)
[2016-09-09 04:57] LABS: Activated Partial Thrombo Time 41.9 Seconds (26.0-36.0)
[2016-09-09] MEDS: *HR* Heparin 5,000 UNIT/ML VIAL SQ SCH ×2 (05:49→18:14)
[2016-09-09] MEDS: Acetaminophen 325 MG TABLET PO PRN ×2 (08:30→22:12)
[2016-09-09] MEDS: Fluticasone Propionate Nasal 50 MCG/SPRAY BOTTLE NS SCH ×2 (08:32→22:13)
[2016-09-09] MEDS: Aspirin 81 MG TAB.CHEW PO SCH (08:32)
[2016-09-09] MEDS: (Salmon Oil/Omega-3 Fatty Acids [Fish Oil 500 Mg Soft PO SCH (08:32)
[2016-09-09] MEDS: Cholecalciferol (D-3) 1,000 UNIT TABLET PO SCH (08:32)
[2016-09-09] MEDS: predniSONE 20 MG TABLET PO SCH (08:33)
[2016-09-09] MEDS: Insulin LISPRO 300 UNITS/3 ML VIAL SQ SCH ×4 (08:35→22:14)
[2016-09-09] MEDS ORDERED: Heparin 1,000 UNITS/500 mL NS 500 ML ONE (13:39)
[2016-09-09] MEDS ORDERED: *HR* Heparin 10,000 UNIT/10 ML VIAL ONE (13:39)
[2016-09-09] MEDS ORDERED: 0.9 % Sodium Chloride 1,000 ML ONE (13:39)
--- NOTE | 2016-09-09 15:23 | Internal Med Progress Note ---
<Erika Joseph - Last Filed: 09/09/16 15:44> Date of Encounter: 09/09/16 Time of Encounter: 15:21 - Assessment and plan (1) Cellulitis Current Visit: Yes Status: Acute Assessment and plan: Podiatry following, appreciate input and expertise Patient has non healing foot ulcer. No concerns for osteomyelitis on xray . CBC without leukocytosis, had evidence of mild lactic acidosis now resolved. Continue Unasyn and vancomycin. Ankle X-Ray 09/06/16 11:01 IMPRESSION: No acute bony abnormalities. No x-ray evidence for osteomyelitis. Soft tissue swelling about the ankle. Clinically described sore to the medial left ankle not definitely evident radiographically. No soft tissue gas. D/ / 09/06/2016 11:59:33 Armando English MD / cydney Interpreting Provider: Armando English MD Qualifiers: Site of cellulitis: extremity Site of cellulitis of extremity: lower extremity Laterality: left Qualified Code(s): L03.116 - Cellulitis of left lower limb (2) PAD (peripheral artery disease) Current Visit: Yes Status: Acute Assessment and plan: Vascular surgery consulted, appreciate input and expertise. Plan for angiography today, patient has been NPO. Imaging: LE arterial physiological study impressions: Right lower extremity waveform demonstrates mildly diminished hemodynamics. Right ankle-brachial and ask demonstrates mildly occlusive disease. Left lower extremity waveform demonstrates moderately diminished hemodynamics. Left ankle-brachial index demonstrates moderately occlusive disease (3) Diabetes Current Visit: No Status: Chronic Assessment and plan: Uncontrolled with an A1c of 9.2%. Patient admits he is not compliant with home regimen. Continue sliding scale. 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 Patient had aterial study yesterday demonstrating moderately occlusive disease of the left lower extremity. Dr. Lira of vascular surgery was consulted and is planning on performing an angiography today to further evaluate. Patient has been NPO overnight. He has no concerns today, states he has no pain unless someone directly pokes at the ulcer site. He has no acute concerns or complaints at this time. - Constitutional Vitals: Temp Pulse Resp BP Pulse Ox 97.7 F 64 15 137/76 94 L 09/09/16 11:27 09/09/16 11:27 09/09/16 11:27 09/09/16 11:09/09/16 11:27 General appearance: Present: A&O X 3, pleasant, no acute distress, answers questions appropriately - Head Head exam: Present: atraumatic, normocephalic - Eye Eye exam: Present: normal appearance. Absent: conjunctival injection - ENT ENT exam: Present: mucous membranes moist, normal external ear exam Additional comments: nasal canula in place - Neck Neck exam general surgery: Present: supple, trachea midline - Respiratory Respiratory exam: Present: CTAB. Absent: rales, rhonchi, stridor, wheezes - Cardiovascular Cardiovascular exam: Present: RRR, +S1, +S2. Absent: clicks, diastolic murmur, gallop, JVD, systolic murmur - GI/Abdominal GI/Abdominal exam: Present: normal bowel sounds, soft. Absent: distended, guarding, rebound, tenderness - Extremities Exam Extremities exam: Absent: joint swelling, pedal edema Additional comments: bandage in place left lower extremity c/d/i - Expanded Lower Extremities Exam Lower Leg exam: Present: erythema. Absent: swelling Ankle exam: Present: erythema Foot/Toe exam: Present: erythema - Psychiatric Psychiatric exam: Present: normal affect, normal mood Internal Medicine: Result - Labs CBC & Chem 7: 09/08/16 04:34 09/08/16 04:34 - ABG Interpretation ABG results: PT/INR, D-dimer PT 12.1 Seconds (9.4-12.1) 09/09/16 04:05 Consult Discharge Plan - Plan Referrals: Alfonso Shane MD [Primary Care Provider] - 09/15/16 1:15 pm <Colten Gottlieb H - Last Filed: 09/09/16 18:18> - Constitutional Vitals: Temp Pulse Resp BP Pulse Ox 97.7 F 67 18 164/87 97 09/09/16 18:00 09/09/16 18:00 09/09/16 18:00 09/09/16 18:00 09/09/16 18:00 Internal Medicine: Result - Labs CBC & Chem 7: 09/08/16 04:34 09/08/16 04:34 - ABG Interpretation ABG results: PT/INR, D-dimer PT 12.1 Seconds (9.4-12.1) 09/09/16 04:05 - Attending Attestation S/P Left SFA LACROSSE PLAYER balloon angioplasty with 5 x 100 mm balloon Left external iliac balloon angioplasty with 5 x 100 mm balloon continue Vanco Day 4 and Unasyn day 3 order picc line consult for IV abx therapy Left internal 2 cm round ulcer I examined this patient and my medical decision-making was reviewed with the FAMILY AND CONSUMER SCIENCE PROFESSOR/PA/Advanced Practice Nurse/Resident Physician. I agree with the documented findings, disposition and treatment plan as described except to the extent set forth below.
--- NOTE | 2016-09-09 15:25 | Pre-Sedation Evaluation ---
Pre-sedation evaluation - Pre-sedation checklist Date of procedure: 09/09/16 Procedure: Angiography Recent Vitals: Last Vital Signs Temp 97.7 F 09/09/16 11:27 Pulse 64 09/09/16 11:27 Resp 15 09/09/16 11:27 BP 137/76 09/09/16 11:27 Pulse Ox 94 L 09/09/16 11:27 H&P (including ROS) documented in medical record: Yes Previous reaction to sedatives/anesthetics: No Dietary Status: NPO after Midnight Dentition: No loose teeth or bridges ASA Classification *see protocol: CLASS III-Severe systemic disease Plan of Care: Pt appropriate candidate for procedure/moderate/conscious sedation , Risks/benefits of procedure/sedation discussed w/ patient/family
[2016-09-09] MEDS ORDERED: *HR* Midazolam HCl 2 MG/2 ML VIAL ONE (15:27)
[2016-09-09] MEDS ORDERED: *HR* FentaNYL (PF) 100 MCG/2 ML VIAL ONE (15:27)
--- NOTE | 2016-09-09 17:10 | Procedure Note ---
Date of procedure: 09/09/16 Pre-op diagnosis: PAD/non healing left leg wound Post-op diagnosis: same Procedure: abdominal aortogram aortogram with bilateral runoff left SFA LAP RUNNER balloon angioplasty with 5 x 100 mm balloon Left external iliac balloon angioplasty with 5 x 100 mm balloon Anesthesia: MAC Surgeon: Lisandro Lira Condition: stable Disposition: floor
--- NOTE | 2016-09-09 17:54 | Invasive Diagnostic Lab ---
Name: Nilton Starks Date of Study: 09/09/2016 Date: 1945 Ht: 168.0 in Medical Record#: [id number] Age: 71 Wt: 75 lb Gender: Male BSA: 1.85 Order #: [id number] Fluoro: 375 mGy BMI: 26.57 Procedure MD: Lisandro Lira MD, FACS Referring MD: Star Daley DPM Referring MD: Alfonso Shane MD Procedures Performed: AORTOGRAPHY, ABDOMINAL S\T\I AORTOGRAPHY EXT Bilat S\T\I FEM/POPL REVAS W/TLA ILIAC REVASC Indications: Non-healing Ulcer PAD Impressions: The Abdominal aorta is normal in appearance and free of obstructive disease. The bilateral renals have non-significant disease. The Left External Iliac has significant flow limiting disease. An intervention including balloon angioplasty was performed successfully on the Left External Iliac. The left Superficial Femoral is occluded. Intervention including balloon angioplasty was performed successfully on the left Superficial Femoral. The right Superficial Femoral has non-significant disease. The Bilateral Tibials has non-significant disease. Recommendations: Optimize medical therapy of patient's disease, including wound care . 75 mg Plavix PO daily History/ Risk Factors: Diabetes Dyslipidemia Hypertension Chronic Lung Disease Renal Failure Peripheral Artery Disease Technique: After informed consent was obtained the patient was placed on the angiographic table. The access areas were prepped and draped in the usual sterile fashion. A timeout protocol was observed. Access was obtained in the right femoral artery. The catheter was advanced over a wire to the suprarenal aorta and an abdominal aortogram was obtained. The injection catheter was then repositioned at the distal infrarenal aorta. An aortogram with bilateral lower extremity runoff was then performed. Critical lesions were seen on the angiogram and a decision was made to proceed to intervention. Diagnostic sheath was exchanged for a 6 Fr. 45 cm. A wire was advanced through the sheath and successfully advanced through the lesion. Heparin was administered. A 5 x 100 mm balloon was advanced over a wire and placed in the left SFA OIL WELL PUMPER lesion. Several inflations were then made. A completion angiogram was performed which demonstrated successful results. The sheath was repositioned and oblique views were taken of the left iliac system. A 5 x 100 mm balloon was placed over a wire into the left iliac system. Several inflations were then made. A completion angiogram was performed which demonstrated successful results. The sheath was removed and hemostasis was achieved with the following measures: Manual Pressure and Closure pad. Vessel Findings: * Abdominal Arteries There is a lesion present with 75% stenosis, in the Proximal Left External Iliac. The lesion has no calcification noted. An intervention was performed on the Left External Iliac, with a final stenosis of 15%. There were no complications in the vessel segment during the procedure. * Lower Extremity Arteries There is a lesion present with 100% stenosis, in the Mid Left Superficial Femoral. The lesion has mild calcification present. An intervention was performed on the Left Superficial Femoral, with a final stenosis of 0%. There were no complications in the vessel segment during the procedure. * Abdominal Arteries There is a lesion present with 90% stenosis, in the Proximal Left Internal Iliac. The lesion has no calcification noted. No intervention was performed on this Lesion. Lesions: Mid Left Superficial Femoral Stenosis: 100% Residual Stenosis: 0% Proximal Left External Iliac Stenosis: 75% Residual Stenosis: 15% Proximal Left Internal Iliac Stenosis: 90% Total Contrast: Isovue 300- 150ml 100mls Updated by Lisandro Lira MD, FACS on 09/09/2016 5:45:54 PM Lisandro Lira MD electronically signed on 09/09/2016 5:48:54 PM with status of Final
--- NOTE | 2016-09-09 18:07 | Invasive Diagnostic Lab Proc ---
Name: Nilton Starks Date of Study: 09/09/2016 Date: 1945 Ht: 168.0 in Medical Record#: [id number] Age: 71 Wt: 75 lb Gender: Male BSA: 1.85 Order #: [id number] BMI: 26.57 Physicians Performing MD: Lisandro Lira MD, FACS Referring MD: Star Daley DPM Referring MD: Alfonso Shane MD Staff Name Position Time In Alisson Thomas RT (R) Monitor Robyn Montesinos RN Artificial Flower Maker Marcy, Ting RT (R) Scrub Mayra Robledo RT (R) Monitor Indications Non-healing Ulcer Procedures Performed AORTOGRAPHY, ABDOMINAL S\\T\\I AORTOGRAPHY EXT Bilat S\\T\\I FEM/POPL REVAS W/TLA ILIAC REVASC Pre-Procedure Checklist Informed consent is complete signed and on chart. H\\T\\P is on chart. ID band is on and ID verified with patient. Patient NPO for procedure The procedure was described for the patient and questions were answered. Blood Pressure: 150/79 ECG is on chart. Rhythm: Atrial Fibrillation Plan of Care Patient will tolerate the procedure without complications. Adequate level of comfort will be maintained. Hemodynamics will remain stable Patient will recover from procedure without complications. Respiratory function will be maintained. Cardiac rhythm will remain stable. Patient temperature will be maintained. Patient and/or family have verbalized understanding of the procedure. Patient Education Chief Complaint/Reason for Test: Peripheral angiogram Developmental Category: Geriatric (65+ years) Learning Barriers: None Education Needs: Procedure Education Method: Verbal Information Taught: Peripheral angiogram Educational Evaluation: Able to repeat information Intravenous Access Time IV Size Location DC'd Fluid/Drip Rate Units RN 05:14 20g 1 06/18" Patent On Arrival 0.9NaCl 25 ml/hr Robyn Montesinos RN Allergies Heubtep-Hso-Hon Reductase Inhibitor Vital Signs Time BP Systolic BP Diastolic HR O2 Sats ASA 150 79 53 97 03:33 PM 164 89 61 92 03:43 PM 148 70 63 98 03:52 PM 141 77 75 97 03:58 PM 155 77 61 98 04:08 PM 165 81 61 98 04:12 PM 159 80 58 98 04:22 PM 160 81 63 98 04:33 PM 163 75 65 99 04:45 PM 155 88 65 98 04:50 PM 150 92 68 98 05:13 PM 173 89 72 96 05:05 PM 165 107 73 97 05:30 PM 155 92 59 97 Procedure Medications Time Medication Dose Units Method Route 03:32 PM Oxygen 3 L/min nasal cannula 03:32 PM Versed 1 mg Intravenous 03:32 PM Fentanyl 50 mcg Intravenous 03:37 PM Lidocaine 2% 10 ml Subcutaneous 03:40 PM Oxygen 4 L/min nasal cannula 04:06 PM Heparin 5000 units Intravenous 04:32 PM Plavix 150 mg Orally ASA Classification: CLASS III- Severe systemic disease (i.e. prior AMI, diabetes with vascular complications, morbid obesity) Vickie Score Preprocedure Postprocedure Activity 2- Moves 4 extremities sustained head lift Activity 2- Moves 4 extremities sustained head lift Circulation 2- SBP +/= 20 points of pre-anesthetic level Circulation 2- SBP +/= 20 points of pre-anesthetic level Consciousness 2- Awake and alert oriented x 3 Consciousness 2- Awake and alert oriented x 3 O2 Saturation 2- Able to maintain O2 satruation of 92% on room air O2 Saturation 2- Able to maintain O2 satruation of 92% on room air Respiratory 1- Labored or limited respiration requires airway Respiratory 1- Labored or limited respiration requires airway Total Score 9 Total Score 9 Contrast: Isovue 300- 150ml Contrast Amount: 100 ml Fluoro Dose: 375 mGy Activated Clotting Time Time Drawn ACT (sec) 04:37 PM 227 05:30 PM 228 Procedure Log Time Note Entered By 03:31 PM Pt arrived to cardiac cath lab radiology technologist 1 at 15:31 [email or web address] 03:31 PM Alisson Thomas RT (R) Position: Monitor Time in: 15:31 [email or web address] 03:31 PM Robyn Montesinos RN Position: Artificial Flower Maker Time in: 15:31 [email or web address] 03:31 PM Ting Vidal RT (R) Position: Scrub Time in: 15:31 [email or web address] 03:31 PM Case delayed: No [email or web address] 03:32 PM Hair removed from procedure site in holding area using clippers. Bilateral groin prepped with Chloraprep by Alisson Thomas RT (R), safety strap applied then patient was draped. Skin intact. [email or web address] 03:32 PM Physician arrived 15:32 [email or web address] 03:32 PM Lucy completed [email or web address] 03:32 PM Sign in performed according to hospital policy. [email or web address] 03:32 PM Procedure start 15:32 [email or web address] 03:32 PM 15:32 Oxygen at 3 L/min per nasal cannula by Alisson Thomas RT (R) [email or web address] 03:32 PM 15:32 Versed 1 mg Intravenous Given by Robyn Montesinos RN [email or web address] 03:32 PM 15:32 Fentanyl 50 mcg Intravenous Given by Robyn Montesinos RN [email or web address] 03:32 PM Time: 15:32 Is patient comfortable and pain free?: No [email or web address] 03:32 PM Time: 15:32LOC: 4 = Oriented but drowsy [email or web address] 03:32 PM Patient charges- Angio tray pack, Pulse Oximetry and ACIST tubing and transducer [email or web address] 03:37 PM Time out perfomed [email or web address] 03:37 PM 15:37 10 ml Lidocaine 2% to right groin Subcutaneous Given By Lisandro Lira MD, FACS [email or web address] 03:39 PM Access obtained in the right femoral artery by percutaneous puncture. 5 Fr. 10 cm Terumo [place] sheath placed in right femoral artery [email or web address] 03:40 PM 0.035 180cm J-wire wire utilized to assist with catheter placement [email or web address] 03:40 PM 15:40 Oxygen at 4 L/min per nasal cannula by Robyn Montesinos RN [email or web address] 03:41 PM Abdominal aorta angiography performed in AP contrast injected 10/20 mls. [email or web address] 03:42 PM Catheter repositioned for runoff. [email or web address] 03:45 PM Setting up for stepping [email or web address] 03:45 PM Abdominal angiogram with runoff completed: 6 ml/sec for a total of 60 mls [email or web address] 03:50 PM Time: 15:32LOC: 4 = Oriented but drowsy [email or web address] 03:50 PM Time: 15:32 Is patient comfortable and pain free?: Yes [email or web address] 03:51 PM Catheter removed [email or web address] 03:41 PM 5Fr Short pigtail catheter [email or web address] 03:52 PM 5Fr Omniflush catheter inserted over the wire [email or web address] 03:54 PM 0.035 260cm [place]-angled wire utilized to assist with catheter placement [email or web address] 03:54 PM Catheter removed [email or web address] 03:55 PM Intervention started at this time [email or web address] 03:55 PM Sheath exchanged for a 6 Fr 45 cm Terumo Destination sheath inserted into right femoral artery [email or web address] 04:03 PM 5Fr 100cm Glidecath Angled-Taper guide catheter advanced to target vessel [email or web address] 04:05 PM Time: 15:50 Is patient comfortable and pain free?: Yes [email or web address] 04:05 PM Diagram Region: Lower Extremity Arteries Anatomical Region: [id number]% Lesion in Mid Right Superficial Femoral Intervention done: 1 (1=yes, 0=no) [email or web address] 04:07 PM 16:06 Heparin 5000 units Intravenous by Robyn Montesinos RN [email or web address] 04:10 PM Balloon removed intact [email or web address] 04:11 PM 5 mm x 100 mm Surface Miner balloon catheter placed into left superficial femoral [email or web address] 04:12 PM Balloon inflated @ 12 mario for 120 seconds [email or web address] 04:15 PM 3 mls of contrast injected into Lt SFA. [email or web address] 04:17 PM Balloon inflated @ 12 mario for 120 seconds [email or web address] 04:19 PM Balloon removed intact [email or web address] 04:20 PM Time: 16:05 Is patient comfortable and pain free?: Yes [email or web address] 04:20 PM 3 mls of contrast injected into Lt SFA. [email or web address] 04:21 PM Left common illiac angiography performed in AUGUST contrast injected 5 mls. [email or web address] 04:23 PM 5 mls of contrast injected into LT MICHELLE. [email or web address] 04:24 PM 5 mls contrast injected into LT MICHELLE. [email or web address] 04:27 PM Balloon re-inserted. [email or web address] 04:28 PM Balloon inflated @ 12 mario for 60 seconds [email or web address] 04:29 PM Balloon removed intact [email or web address] 04:29 PM 4 mls of contrast injected into LT MICHELLE. [email or web address] 04:30 PM Guide wire removed intact [email or web address] 04:32 PM Procedure completed at 16:32 [email or web address] 04:32 PM Sign Out completed: Radiation Dose 374.69 mGy Fluoro Time: 9.0 minutes. Isovue 300- 150ml contrast 100 ml given by Lisandro Lira MD, FACS. Complications: None. Confirmed administered medications:Yes [email or web address] 04:33 PM Time: 16:32 Plavix 150 mg Orally Given by Robyn Montesinos RN [email or web address] 04:35 PM Time: 16:20 Is patient comfortable and pain free?: [email or web address] 04:37 PM Mayra Robledo RT (R) Position: Monitor Time in: 16:36 [email or web address] 04:38 PM Diagram Region: Abdominal Arteries Anatomical Region: Abd-[id number]% Lesion in Proximal Left Common Iliac Intervention done: 1 (1=yes, 0=no) [email or web address] 04:38 PM Sheath left in place to be pulled on floor/holding areaV+Pad [email or web address] 04:38 PM Post Blood Pressure: 155/88 [email or web address] 04:38 PM Post EKG: Atrial Fibrillation [email or web address] 04:38 PM 16:38 Post Pulses: Bilateral DP Doppler. [email or web address] 04:39 PM Information taught: Peripheral angiogram and PROCESS ENVIRONMENTAL TECHNICIAN [email or web address] 04:39 PM Education needs: Procedure, Plan of Care, and Disease Process [email or web address] 04:39 PM Learning barriers: None [email or web address] 04:39 PM Education methods: Verbal [email or web address] 04:39 PM Education evaluation: Able to repeat information [email or web address] 04:39 PM Patient pain level 0/10 [email or web address] 04:39 PM Site status No bleeding/hematoma - Rt Groin as reported by Ting Vidal RT (R) at 16:39 [email or web address] 04:39 PM Opsite applied [email or web address] 04:39 PM Delay to floor: Bed availability [email or web address] 04:39 PM Report given to Irlanda ROJAS. Pt taken to Holding room, Room # 2 16:39 [email or web address] 04:39 PM Pt taken to Holding room Room# 4 [email or web address] 04:46 PM Patient out of room 16:46 [email or web address] 04:50 PM patient received to HR 4. monitors applied. Dr Lira in to speak with patient, kat 05:03 PM family at bedside kat 05:30 PM ACT: 228 seconds 17:30 [email or web address] 05:45 PM Report given to Merlin ROJAS. Pt taken to , Room # 14 17:45 [email or web address] 06:02 PM [facility] Peripheral Anatomy Vessel Pathology Lesion Stenosis Aneurysm Diameter Thrombus Type Left Superficial Femoral Lesion 100 Left External Iliac Lesion 75 Left Internal Iliac Lesion 90 Peripheral Intervention Anatomical Region:Abd-Art Vessel Segment:Undefined Bookmark: [email or web address] Pathology Type:Lesion Pre-Stenosis:75 Post-Stenosis:15 Peripheral Intervention Anatomical Region:LE-Art Vessel Segment:Undefined Bookmark: [email or web address] Pathology Type:Lesion Pre-Stenosis:100 Post-Stenosis:0 Post Procedure Information Blood Pressure: 155/88 mmHg Rhythm: Atrial Fibrillation Post procedure instructions given Report Given To: Rosamaria Site Checks Time Location Status Staff Sheath In? Note 4:39:00 PM Rt Groin No bleeding/ No Hematoma Ting Vidal RT (R) 09/09/2016 4:50:00 PM Rt Groin No bleeding/ No Hematoma Irlanda Cotton RN 09/09/2016 5:05:00 PM Rt Groin No bleeding/ No Hematoma Irlanda Cotton RN 09/09/2016 5:30:00 PM Rt Groin No bleeding/ No Hematoma Irlanda Cotton RN 09/09/2016 5:12:00 PM Rt Groin No bleeding/ No Hematoma Irlanda Cotton RN Pulses Time Site Pre Procedure Post Procedure Note 09/09/2016 8:25:00 AM Bilateral radial 2+ 2+ 09/09/2016 4:32:00 PM Bilateral DP \\T\\ PT Doppler 4:38:00 PM Bilateral DP Doppler 09/09/2016 4:50:00 PM Bilateral DP \\T\\ PT Doppler 09/09/2016 5:13:00 PM Lt DP/pt 2+ 09/09/2016 5:15:00 PM Rt DP/pt Doppler 09/09/2016 5:30:00 PM Lt DP/PT 2+ 09/09/2016 5:30:00 PM Rt DP/PT Doppler Updated by Irlanda Cotton RN on 09/09/2016 6:02:40 PM electronically signed on 09/09/2016 6:03:27 PM with status of Final
[2016-09-09] MEDS: Finasteride 5 MG TABLET PO SCH (22:11)
[2016-09-09] MEDS: Latanoprost 2.5 ML BOTTLE OP SCH (22:14)
[2016-09-10] MEDS: Ampicillin/Sulbactam 3,000 MG in 0.9 % Sodium Chloride Mini Bag 100 ML IVPB SCH ×2 (02:25→08:39)
[2016-09-10] MEDS: Ipratropium/Albuterol Neb 3 ML IH SCH ×2 (03:43→10:24)
[2016-09-10 05:47] LABS: Hematocrit 45.9 % (37.5-50.1); Hemoglobin 14.6 g/dL (12.9-16.9); Mean Corpuscular HGB Conc 31.8 g/dL (31.6-35.5); Mean Corpuscular Hemoglobin 30.4 pg (28.0-33.3); Mean Corpuscular Volume 95.4 fL (83.0-100.0); Mean Platelet Volume 10.4 fL (9.4-12.4); Platelet Count 177 K/mcL (140-400); Red Blood Count 4.81 M/mcL (4.19-5.50); Red Cell Distribution Width 13.2 % (11.5-14.5)
[2016-09-10 06:06] LABS: BUN/Creatinine Ratio 11 (6-26); Blood Urea Nitrogen 10 mg/dL (8-26); Calcium 8.6 mg/dL (8.6-10.8); Carbon Dioxide 25 mEq/L (19-29); Chloride 110 mEq/L (98-109); Glucose 149 mg/dL (70-99); Osmolality,Calculated 294 (280-300); Potassium 3.8 mEq/L (3.5-4.5); Sodium 141 mEq/L (136-145); eGFR For African Americans > 60 (> 60); eGFR For Non-African Americans > 60 (> 60)
[2016-09-10] MEDS: *HR* Heparin 5,000 UNIT/ML VIAL SQ SCH (06:36)
[2016-09-10] MEDS: Vancomycin 1,000 MG in D5% in Water 250 ML IVPB SCH (06:36)
[2016-09-10] MEDS: Fluticasone Propionate Nasal 50 MCG/SPRAY BOTTLE NS SCH (08:35)
[2016-09-10] MEDS: predniSONE 20 MG TABLET PO SCH (08:36)
[2016-09-10] MEDS: Insulin LISPRO 300 UNITS/3 ML VIAL SQ SCH ×2 (08:36→12:47)
[2016-09-10] MEDS: Cholecalciferol (D-3) 1,000 UNIT TABLET PO SCH (08:37)
[2016-09-10] MEDS: Aspirin 81 MG TAB.CHEW PO SCH (08:38)
[2016-09-10] MEDS: (Salmon Oil/Omega-3 Fatty Acids [Fish Oil 500 Mg Soft PO SCH (08:39)
--- NOTE | 2016-09-10 08:53 | Discharge Summary ---
Date of Encounter: 09/10/16 Time of Encounter: 08:53 - Discharge Diagnosis (1) Cellulitis Priority: Primary Status: Acute Comments: Left ankle cellulitis with nonhealing ulcer Qualifiers: Site of cellulitis: extremity Site of cellulitis of extremity: lower extremity Laterality: left Qualified Code(s): L03.116 - Cellulitis of left lower limb (2) History of coronary artery disease Priority: Secondary Status: Chronic (3) BPH (benign prostatic hyperplasia) Priority: Secondary Status: Chronic Qualifiers: Prostatic enlargement morphology: unspecified morphology Lower urinary tract symptom presence: symptoms absent Qualified Code(s): N40.0 - Benign prostatic hyperplasia without lower urinary tract symptoms (4) PAD (peripheral artery disease) Priority: Secondary Status: Acute Comments: start Plavix (5) Diabetes Priority: Secondary Status: Chronic Qualifiers: Diabetes mellitus type: type 2 Diabetes mellitus complication status: with circulatory complication Diabetes mellitus complication detail: with peripheral angiopathy without gangrene Diabetes mellitus halfway insulin use : without halfway use Qualified Code(s): E11.51 - Type 2 diabetes mellitus with diabetic peripheral angiopathy without gangrene - Discharge Medications Prescriptions: Vancomycin [Vancocin] 1,000 mg IV Q12HR #7 vial Clopidogrel [Plavix] 75 mg PO DAILY #90 tablet Home Medications: Aspirin 81 tab PO DAILY 02/03/15 [History] Brimonidine 0.2% [Alphagan] 1 drop BOTH EYES BID 02/03/15 [History] Cholecalciferol (Vitamin D3) [Vitamin D3] 1 cap PO DAILY 02/03/15 [History] Finasteride [Proscar] 5 mg PO DAILY 02/03/15 [History] GlipiZIDE XL (24 HR) [Glucotrol XL] 5 mg PO DAILY 02/03/15 [History] Latanoprost [Xalatan] 1 drop BOTH EYES HS 02/03/15 [History] Metformin HCl [Fortamet] 1,000 mg PO BID 02/03/15 [History] Nebivolol [Bystolic] 2.5 mg PO DAILY 02/03/15 [History] Ramipril [Altace] 5 mg PO DAILY 02/03/15 [History] [place] Oil/[place]-3 Fatty Acids [Fish Oil 500 mg Softgel] 1 cap PO DAILY [History] Tamsulosin [Flomax] 0.4 mg PO DAILY 02/03/15 [History] Albuterol Sulfate [Albuterol Inhaler] 1 puff IH Q4HR PRN #1 puff 02/05/15 [Rx] Cyclosporine [Restasis] 1 drop BOTH EYES BID 07/10/15 [History] Fluticasone Propionate Nasal [Flonase] 50 mcg NS BID 07/10/15 [History] Furosemide [Lasix] 20 mg PO DAILY PRN 09/06/16 [History] Gabapentin [Neurontin] 100 mg PO HS PRN 09/06/16 [History] Ipratropium/Albuterol Neb [Duoneb] 3 ml IH Q6HR 09/06/16 [History] PredniSONE 10 mg PO DAILY 09/06/16 [History] Docusate Sodium [Stool Softener] mg PO BID 09/07/16 [History] PredniSONE [Deltasone] 10 mg PO DAILY 09/07/16 [History] Clopidogrel [Plavix] 75 mg PO DAILY #90 tablet 09/10/16 [Rx] Vancomycin [Vancocin] 1,000 mg IV Q12HR #7 vial 09/10/16 [Rx] Allergies/Adverse Reactions: Allergies Lxytwve-Bqi-Ksr Reductase Inhibitor [Statins] Allergy (Verified 09/06/16 10:35) See Comments foot, ankle pain sore throat Procedures/tests Complete & Pending: Procedures Performed prior 72 hours Category Date Time Status CL Peripheral Angiography [CL] Routine Restoration Officer 09/08/16 17:09 Completed EV arterial study LE Routine Y 09/08/16 10:34 Completed Date of admission: 09/06/16 20:20 Primary care physician: Alfnoso Shane MD Consults: 09/08/16 16:08 Consult to Vascular Surgery [CONS] Routine Consulting Provider: Lisandro Lira Reason for Consult: Vascular Disease Time Notified: 16:09 Call Completed: Yes - Patient Status Disposition: Home Health Service Condition: Fair Overall status at discharge: patient is progressing back to baseline - Discharge Instructions Follow Up With: Alfonso Shane MD [Primary Care Provider] - 09/15/16 1:15 pm Additional Instructions: Follow with primary care physician within the next 7 days. Follow with vascular surgery within the next 2 weeks. Start Plavix. Complete 4 more days of IV vancomycin. Wound care at home. - Diet and Activity Activity: increase activity as tolerated Diet: diabetic diet Hospital course: Mr. Starks is a 71 year old male with a past medical history of Right coronary artery stent angioplasty at [facility] 1994), knee replacement, diabetes type 2 not insulin-dependent, diastolic CHF, COPD not oxygen dependent on chronic steroids, peripheral vascular disease, BPH. Recently admitted for evaluation and treatment of a left leg wound. Patient has been experiencing a wound to left ankle for approximately 10 days. He stated it started out as a blister that he is putting his socks only opened and has grown since then. He was receiving Bactrim and Keflex (or doxycycline) for approximately 5 days without any improvement. He denied any fevers chills shortness of breath nausea vomiting or diarrhea. He presented to the ER with above complaints. Overall the ER lab work was obtained which did not show any leukocytosis however it did show elevated creatinine 1.38 a as well as a lactate of 3.7. X-rays of right ankle did reveal soft tissue swelling however no soft tissue gas noted. Patient was given clindamycin and then switched to Unasyn and IV vancomycin. He had a round wound approximately 1.5-2 cm in diameter that has a hardened yellow area in the center with redness surrounding tissue there is no streaking the left foot is swollen is warm has brisk capillary refill palpable pulses. ABIs were performed with an index of 1.43 in the right lower extremity, and 0.54 on the left lower extremity above the knee, 0.51 below the knee. He does not have antecedent history of claudication but his ambulation distance was dramatically reduced because of shortness of breath and bilateral hip pain. He estimates his walking distance to be no more than 50 yards. He denies any ischemic rest pain or nocturnal rest pain. The patient was evaluated by the vascular surgery service and underwent angioplasty and left lower extremity (Left SFA OPTIMIZATION CONSULTANT balloon angioplasty with 5 x 100 mm balloon, and Left external iliac balloon angioplasty with 5 x 100 mm balloon). The patient was started on Plavix, the PICC line will be placed and he will require 4 more days of vancomycin IV. His creatinine upon discharge is 0.89. He was given the option to try to go to a facility for the moment he prefers to go home on home health. - Time Spent with Patient Total time spent providing and/or coordinating discharge services: Greater than 30 minutes (40 min) - Constitutional Vitals: Temp Pulse Resp BP Pulse Ox 97.7 F 59 20 126/79 91 L 09/10/16 07:47 09/10/16 07:47 09/10/16 07:47 09/10/16 07:47 09/10/16 07:47 General appearance: Present: A&O X 3, pleasant, no acute distress, answers questions appropriately - Head Head exam: Present: atraumatic, normocephalic - Eye Eye exam: Present: PERRL, conjuntiva pink, sclera anicteric Pupils: Present: PERRL - Neck Neck exam general surgery: Present: supple, trachea midline. Absent: lymphadenopathy - Respiratory Respiratory exam: Present: decreased breath sounds, CTAB. Absent: accessory muscle use, rales, rhonchi, wheezes - Cardiovascular Cardiovascular exam: Present: RRR, +S1, +S2. Absent: diastolic murmur, gallop, rubs, systolic murmur - GI/Abdominal GI/Abdominal exam: Present: normal bowel sounds, soft, no peritoneal signs. Absent: distended, tenderness - Extremities Exam Extremities exam: Present: warm, radial pulses palpable and symetrical. Absent : calf tenderness, cyanotic, pedal edema Additional comments: Left lower extremity internal 2 cm round ulcer close to the ankle, surrounding erythema is improving - Neurological Exam Neurological exam: Present: CN II-XII intact, oriented X3, no focal deficits. Absent: pronater drift, facial droop, speech deficit - Skin Skin exam: Present: dry, intact
--- NOTE | 2016-09-10 09:12 | Physician Discharge Referral ---
Home Health/Hosp Referral Info Transfer to: Home Health Provider in Charge Post Discharge: PCP - Diagnosis (1) Cellulitis Status: Acute (2) History of coronary artery disease Status: Chronic (3) BPH (benign prostatic hyperplasia) Status: Chronic (4) PAD (peripheral artery disease) Status: Acute (5) Diabetes Status: Chronic - Respiratory Orders Smoking Cessation: Smoking cessation has been advised. For more information, call the [place] Tobacco Quit Line at 1-314-IAGA-NOW. - Diet/Nutrition Diet/Nutrition Orders: Cardiac (Diabetic diet 1800 kcal) - Services Needed Following services are medically necessary services: Nursing, Home Health Aide, Physical Therapy Home Care Orders: Follow with primary care physician within the next 7 days. Follow with vascular surgery within the next 2 weeks. Start Plavix. Complete 4 more days of IV vancomycin. Wound care at home. - Transfer Medications Prescriptions: Vancomycin [Vancocin] 1,000 mg IV Q12HR #7 vial Clopidogrel [Plavix] 75 mg PO DAILY #90 tablet Home Medications: Aspirin 81 tab PO DAILY 02/03/15 [History] Brimonidine 0.2% [Alphagan] 1 drop BOTH EYES BID 02/03/15 [History] Cholecalciferol (Vitamin D3) [Vitamin D3] 1 cap PO DAILY 02/03/15 [History] Finasteride [Proscar] 5 mg PO DAILY 02/03/15 [History] GlipiZIDE XL (24 HR) [Glucotrol XL] 5 mg PO DAILY 02/03/15 [History] Latanoprost [Xalatan] 1 drop BOTH EYES HS 02/03/15 [History] Metformin HCl [Fortamet] 1,000 mg PO BID 02/03/15 [History] Nebivolol [Bystolic] 2.5 mg PO DAILY 02/03/15 [History] Ramipril [Altace] 5 mg PO DAILY 02/03/15 [History] [place] Oil/[place]-3 Fatty Acids [Fish Oil 500 mg Softgel] 1 cap PO DAILY [History] Tamsulosin [Flomax] 0.4 mg PO DAILY 02/03/15 [History] Albuterol Sulfate [Albuterol Inhaler] 1 puff IH Q4HR PRN #1 puff 02/05/15 [Rx] Cyclosporine [Restasis] 1 drop BOTH EYES BID 01/26/16 [History] Fluticasone Propionate Nasal [Flonase] 50 mcg NS BID 07/10/15 [History] Furosemide [Lasix] 20 mg PO DAILY PRN 09/06/16 [History] Gabapentin [Neurontin] 100 mg PO HS PRN 09/06/16 [History] Ipratropium/Albuterol Neb [Duoneb] 3 ml IH Q6HR 09/06/16 [History] PredniSONE 10 mg PO DAILY 09/06/16 [History] Docusate Sodium [Stool Softener] mg PO BID 09/07/16 [History] PredniSONE [Deltasone] 10 mg PO DAILY 09/07/16 [History] Clopidogrel [Plavix] 75 mg PO DAILY #90 tablet 09/10/16 [Rx] Vancomycin [Vancocin] 1,000 mg IV Q12HR #7 vial 09/10/16 [Rx] Allergies/Adverse Reactions: Allergies Odsyeks-Fcu-Muu Reductase Inhibitor [Statins] Allergy (Verified 09/06/16 10:35) See Comments foot, ankle pain sore throat Certification: Further, I certify that my clinical findings support that this patient is homebound (i.e. absences from home require considerable and taxing effort and are for medical reasons or confucianism services or infrequently or short duration when for other reasons) because: Homebound Reason: Patient requires assistance of a person or device to safely leave home Attestation: My signature below is to certify that this patient is under my care and that I, or nurse practitioner, or a physician's food and beverage assistant working with me, has a face-to -face encounter with this patient.
[2016-09-10 11:51] VITALS: BP 117/43
--- NOTE | 2016-09-10 12:20 | Podiatry Consult Note ---
Date of Encounter: 09/08/16 Time of Encounter: 12:30 Assessment and Plan (1) Ischemic ulcer of left ankle Current visit: Yes Status: Acute Assessment: #1 dry ischemic ulcer left ankle. Plan: #1 begin local wound care. Apply Santyl ointment underneath a moistened dry dressing twice a day #2 recommend noninvasive studies and vascular consultation #3 recommend continued application of Santyl ointment twice a day underneath a saline moistened dry dressing as an outpatient. Follow up with Dr. Daley in 2 weeks after discharge and wound care clinic. Please call [phone] for appointment Qualifiers: Non-pressure ulcer stage: unspecified non-pressure ulcer stage Qualified Code(s): L97.329 - Non-pressure chronic ulcer of left ankle with unspecified severity History of Present Illness Chief complaint: Wound left ankle HPI: Mr. Starks is a 71 year old male who presents with a wound of approximately 2 weeks' duration left medial ankle. Patient states it started as a blister. He received several weeks of antibiotics to no avail. He presented to the ED and was then admitted for further evaluation. No history of injury or trauma that he can specifically recall no nausea vomiting fever chills. Past Med Surg Social Fam HX - Past Medical History Medical history: cancer, COPD, diabetes, glaucoma, hyperlipidemia, hypertension , myocardial infarction Psychiatric history: no psych history - Past Surgical History Surgical History: angioplasty/stent, other - Social History Smoking Status: Former smoker Smokeless Tobacco Status: No Alcohol use: occasionally Drug use: none - Family History Mother Age at : 98 Cause of : natural causes Hx Family Cardiac Disorders: No Hx Family Respiratory Disorders: No Hx Family Cancer: No Hx Family GI Disorders: No Hx Family Genitourinary Disorders: No Hx Family Endocrine Disorder: No Hx Family Musculoskeletal Disorders: No Hx Family Neuromuscular Disorders: No Hx Family Neurologic Disorders: No Hx Family HEENT Disorders: No Hx Family Autoimmune Disorders: No Hx Family Reproductive Disorders: No Hx Family Psychosocial Disorders: No Hx Family Medical Disorders: No Father Adopted: No Family Member Ethnicity: Non- Living Status: Age at : 84 Cause of : CHF Hx Family Cardiac Disorders: Yes Hx Family Respiratory Disorders: No Hx Family Cancer: No Hx Family GI Disorders: No Hx Family Genitourinary Disorders: No Hx Family Endocrine Disorder: No Hx Family Musculoskeletal Disorders: No Hx Family Neuromuscular Disorders: No Hx Family Neurologic Disorders: No Hx Family HEENT Disorders: No Hx Family Autoimmune Disorders: No Hx Family Reproductive Disorders: No Hx Family Psychosocial Disorders: No Hx Family Medical Disorders: No Medications and Allergies Aspirin 81 tab PO DAILY 02/03/15 [History] Brimonidine 0.2% [Alphagan] 1 drop BOTH EYES BID 02/03/15 [History] Cholecalciferol (Vitamin D3) [Vitamin D3] 1 cap PO DAILY 02/03/15 [History] Finasteride [Proscar] 5 mg PO DAILY 02/03/15 [History] GlipiZIDE XL (24 HR) [Glucotrol XL] 5 mg PO DAILY 02/03/15 [History] Latanoprost [Xalatan] 1 drop BOTH EYES HS 02/03/15 [History] Metformin HCl [Fortamet] 1,000 mg PO BID 02/03/15 [History] Nebivolol [Bystolic] 2.5 mg PO DAILY 02/03/15 [History] Ramipril [Altace] 5 mg PO DAILY 02/03/15 [History] [place] Oil/[place]-3 Fatty Acids [Fish Oil 500 mg Softgel] 1 cap PO DAILY [History] Tamsulosin [Flomax] 0.4 mg PO DAILY 02/03/15 [History] Albuterol Sulfate [Albuterol Inhaler] 1 puff IH Q4HR PRN #1 puff 02/05/15 [Rx] Cyclosporine [Restasis] 1 drop BOTH EYES BID 07/10/15 [History] Fluticasone Propionate Nasal [Flonase] 50 mcg NS BID 07/10/15 [History] Furosemide [Lasix] 20 mg PO DAILY PRN 09/06/16 [History] Gabapentin [Neurontin] 100 mg PO HS PRN 09/06/16 [History] Ipratropium/Albuterol Neb [Duoneb] 3 ml IH Q6HR 09/06/16 [History] PredniSONE 10 mg PO DAILY 09/06/16 [History] Docusate Sodium [Stool Softener] mg PO BID 09/07/16 [History] PredniSONE [Deltasone] 10 mg PO DAILY 09/07/16 [History] Clopidogrel [Plavix] 75 mg PO DAILY #90 tablet 09/10/16 [Rx] Vancomycin [Vancocin] 1,000 mg IV Q12HR #7 vial 09/10/16 [Rx] Allergies Nlenavm-Zqf-Oev Reductase Inhibitor [Statins] Allergy (Verified 09/06/16 10:35) See Comments foot, ankle pain sore throat All Systems Reviewed: A 10-system review of systems was performed and is negative for pertinent findings except as documented above in the HPI. Physical Exam - Constitutional Vitals: Temp Pulse Resp BP Pulse Ox 97.8 F 79 20 117/43 90 L 09/10/16 11:47 09/10/16 11:47 09/10/16 11:47 09/10/16 11:47 09/10/16 11:47 - Ankle & Foot left Ankle appearance: swelling, erythema (Wound distal medial ankle measuring approximately 3 cm x 3 cm 100% eschar wound edges are attached. Periwound erythema no tunneling or undermining no sinus tract no fluctuance. No ascending cellulitis no lymphangitis.) Results - Labs Result Diagrams: 09/10/16 05:22 09/10/16 05:22 Labs: Abnormal lab results ESR 12 mm/hr (0-10) H 09/08/16 04:34 APTT 41.9 Seconds (26.0-36.0) H 09/09/16 04:05 Chloride 110 mEq/L (98-109) H 09/10/16 05:22 Glucose 149 mg/dL (70-99) H 09/10/16 05:22 POC Glucose 223 (58-89) H 09/09/16 21:54 Hemoglobin A1c 9.2 % (-5.6) H 09/06/16 18:59 Lactic Acid 2.3 mmol/L (0.5-2.2) H 09/08/16 16:30 C-Reactive Protein 7 mg/L (Less than 5) H 09/08/16 04:34 Albumin 3.4 g/dL (3.5-5.0) L 09/06/16 11:10 Albumin/Globulin Ratio 1.0 (1.1-2.2) L 09/06/16 11:10 H & H 09/10/16 Range/Units 05:22 Hgb 14.6 (12.9-16.9) g/dL Hct 45.9 (37.5-50.1) % All other labs normal. Consult Discharge Plan - Plan Instructions: Vancomycin (Injection), Clopidogrel (By mouth), Cellulitis (DC), Peripheral Vascular Disorders (DC) Additional Instructions: Follow with primary care physician within the next 7 days. Follow with vascular surgery within the next 2 weeks. Start Plavix. Complete 4 more days of IV vancomycin. Wound care at home. Referrals: Alfonso Shane MD [Primary Care Provider] - 09/15/16 1:15 pm Lisandro Lira MD [Partnered Physician] - 09/24/16 11:45 am () Prescriptions: Vancomycin [Vancocin] 1,000 mg IV Q12HR #7 vial Clopidogrel [Plavix] 75 mg PO DAILY #90 tablet
--- NOTE | 2016-09-10 13:32 | Vascular/[facility] Progress Note ---
Date of Encounter: 09/10/16 Time of Encounter: 13:30 - Assessment and plan (1) PAD (peripheral artery disease) Current Visit: Yes Status: Acute The patient is a markedly abnormal physical exam and markedly abnormal noninvasive testing. The degree of ischemia precludes successful wound healing with conservative measures. Because of this have recommended angiography and probable endovascular intervention. I reviewed the potential risks and benefits of palpitations and alternatives with the patient. He agrees to proceed. We'll plan on angiography for tomorrow afternoon.. Patient is status post an angiogram and left lower extremity intervention with left external iliac artery and left superficial femoral artery balloon angioplasty. He has had restitution now palpable pulses at the ankle with excellent perfusion of the left lower extremity. 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 Starks is a 71-year-old white male who is status post angiogram and endovascular intervention yesterday. He had a balloon angioplasty of a left external iliac artery stenosis and a balloon angioplasty of a left superficial femoral artery chronic total occlusion. The patient tolerated the procedure well. He has no complaints today. He is being prepared for discharge later this afternoon. Vital Signs, Last 4 Hours Temp Pulse Resp BP Pulse Ox 09/10/16 11:47 97.8 F 79 20 117/43 90 L 09/10/16 10:24 18 92 L - Physical Examination General: Present: Conversant, No Apparent Distress Vascular: Present: Normal capillary refill, Pulse, normal, Color/Temperature ( The left foot is warm and pink. He now is palpable pulses.), Other (Patient has ecchymosis at the right groin area at the puncture site during there is no hematoma.) Results 09/10/16 05:22 09/10/16 05:22 Lab Results, Last 24 hours 09/10/16 09/10/16 05:22 05:22 WBC 6.4 Hgb 14.6 Hct 45.9 Plt Count 177 Sodium 141 Potassium 3.8 Chloride 110 H Carbon Dioxide 25 BUN 10 Creatinine 0.89 Glucose 149 H Calcium 8.6 Consult Discharge Plan - Plan Instructions: Vancomycin (Injection), Clopidogrel (By mouth), Cellulitis (DC), Peripheral Vascular Disorders (DC) Additional Instructions: Follow with primary care physician within the next 7 days. Follow with vascular surgery within the next 2 weeks. Start Plavix. Complete 4 more days of IV vancomycin. Wound care at home. Referrals: Alfonso Shane MD [Primary Care Provider] - 09/15/16 1:15 pm Lisandro Lira MD [Partnered Physician] - 09/24/16 11:45 am () Prescriptions: Vancomycin [Vancocin] 1,000 mg IV Q12HR #7 vial Clopidogrel [Plavix] 75 mg PO DAILY #90 tablet Collagenase Oint [Santyl] 30 appl TP BID #1 tube
[2016-09-10] MEDS ORDERED: Aminoglycoside Consult 1 EACH MC ONE (15:59)
== END 2016-09-10 16:00 | disposition home health service (06) | DRG 253 ==
LOC: 3BNU 10:34 → EMEROO 10:34 → 3BNU 14:49 → SUATTDRO 20:20 → 2NNU 09-09 17:06
PROVIDERS: ADMIT Nurse Practitioner Acute Care; ATTEND Internal Medicine

== ENCOUNTER 2017-11-28 10:46 | Inpatient (IN) ==
[2017-11-28] MEDS ORDERED: Ipratropium/Albuterol Neb 3 ML IH ONE (10:57)
[2017-11-28] MEDS ORDERED: methylPREDNISolone 125 MG/2 ML VIAL IVP ONE (10:57)
--- NOTE | 2017-11-28 11:01 | Emergency Department Note ---
Disposition Clinical Impression: Severe sepsis, Elevated lactic acid level COPD (chronic obstructive pulmonary disease) Qualifiers: COPD type: unspecified COPD Qualified Code(s): J44.9 - Chronic obstructive pulmonary disease, unspecified Disposition: Admitted As Inpatient Condition: Fair General Adult HPI - General Chief complaint: ED Shortness of Breath/Dyspnea Stated complaint: VINI Time Seen by Provider: 11/28/17 10:51 Source: patient Mode of arrival: wheelchair Limitations: no limitations Nursing Notes Reviewed: Yes Vital Signs Reviewed: Yes - History of Present Illness HPI Narrative: 72-year-old male history of COPD, ACS, diabetes mellitus for evaluation of dyspnea. Patient states symptom onsets been over the past week. Patient states that he has not been able to perform his activities daily living without being dyspneic. Patient states he has been using his aerosols 4 times a day. Patient states that these had a nonproductive cough during this time. No fevers. Notes 2-3 L baseline nausea requirement daily steroids. Patient denies any chest pain. No nausea vomiting or diaphoresis. No abdominal pain. Patient lives at home without nursing or home health care. Pain Scale: 0 - Related Data Home Medications Medication Instructions Recorded Confirmed Metformin HCl [Fortamet] 1,000 mg PO BID 02/03/15 11/28/17 Cyclosporine [Restasis] 1 drop BOTH EYES BID 07/10/15 11/28/17 Fluticasone Propionate Nasal 50 mcg NS BID 07/10/15 11/28/17 [Flonase] Furosemide [Lasix] 20 mg PO DAILY PRN 09/06/16 11/28/17 Gabapentin [Neurontin] 100 mg PO HS PRN 09/06/16 11/28/17 Ipratropium/Albuterol Neb [Duoneb] 3 ml IH Q6HR 09/06/16 11/28/17 Roflumilast [Daliresp] 500 mcg PO DAILY 07/22/17 11/28/17 Albuterol Sulfate [Proair 90 mcg IH Q4H PRN 10/23/17 11/28/17 Respiclick] Aspirin [Lo-Dose Aspirin EC] 81 mg PO DAILY 10/23/17 11/28/17 Exenatide Microspheres [Bydureon] 2 mg SQ QWEEK 10/23/17 11/28/17 Tamsulosin [Flomax] 0.4 mg PO DAILY 10/23/17 11/28/17 predniSONE [PredniSONE] 10 mg PO DAILY 10/23/17 11/28/17 Finasteride [Proscar] 5 mg PO DAILY 11/28/17 11/28/17 Fluticasone/Salmeterol [Advair Hfa 2 puff IH BID 11/28/17 11/28/17 230-21 Mcg Inhaler] Latanoprost [Xalatan] 1 drop OP HS 11/28/17 11/28/17 Nebivolol HCl [Bystolic] 2.5 mg PO DAILY 11/28/17 11/28/17 Ramipril [Altace] 5 mg PO DAILY 11/28/17 11/28/17 glipiZIDE [Glipizide] 10 mg PO DAILY 11/28/17 11/28/17 Previous Rx's Medication Instructions Recorded Clopidogrel Bisulfate [Plavix] 75 mg PO DAILY #30 tablet 10/23/17 Allergies Allergy/AdvReac Type Severity Reaction Status Date / Time metoprolol Allergy Hypotension Verified 10/23/17 09:18 [id number] Reductase Allergy See Verified 07/22/17 10:14 Inhibitor Comments [Statins] glimepiride [From Amaryl] AdvReac Numbness Verified 10/23/17 09:18 glipizide [From Glucotrol] AdvReac See Verified 10/23/17 09:18 Comments levofloxacin [From Levaquin] AdvReac See Verified 10/23/17 09:18 Comments sitagliptin [From Januvia] AdvReac See Verified 10/23/17 09:18 Comments All systems ED: reviewed and negative except as stated. Constitutional: Denies: fever Cardiovascular: Denies: chest pain Respiratory: Reports: cough, dyspnea. Denies: wheezes, sputum production Gastrointestinal: Denies: abdominal pain, nausea, vomiting Past Medical History - Past Medical History Source: patient Medical history: Reports: cancer, COPD, coronary artery disease, diabetes, glaucoma, hyperlipidemia, hypertension, myocardial infarction, peripheral artery disease, other Surgical history: Reports: angioplasty/stent, other Psychiatric history: Reports: no psych history - Social History Smoking Status: Former smoker Smokeless Tobacco Status: No Alcohol use: Reports: rarely Drug use: Reports: none Physical Exam - General Limitations: no limitations General appearance: alert, in no apparent distress - Head Head exam: atraumatic, normocephalic, normal inspection - Eye Eye exam: Present: normal appearance, PERRL, EOMI - ENT ENT exam: normal exam, normal oropharynx, mucous membranes moist - Neck Neck exam: Present: normal inspection - Chest Chest inspection: Present: normal inspection, symmetric chest wall rise - Respiratory Respiratory exam: Present: prolonged expiratory phase, other (Diffusely diminished lung sounds). Absent: respiratory distress - Cardiovascular Cardiovascular exam: Present: regular rate, normal rhythm. Absent: systolic murmur - Abdominal Exam Abdominal exam: Present: soft, Non-Tender - Extremities Exam Extremities exam: Present: normal inspection. Absent: pedal edema - Expanded Lower Extremity Exam Neurovascular/Tendon exam: Present: normal capillary refill - Back Exam Back exam: Present: normal inspection - Neurological Exam Neurological exam: Present: alert, oriented X3, CN II-XII intact - Skin Skin exam: Present: warm, dry, intact, normal color Course Course Narrative: Patient seen and examined. Patient presents with signs and symptoms of COPD exacerbation. Patient will get breathing treatments, steroids, basic labs EKG chest x-ray. Disposition likely admission. - Reevaluation(s) Reevaluation #1: Patient states his breathing has improved. Time: 11:39 Reevaluation #2: Patient's lactate came back elevated. Will obtain blood cultures. Broaden the workup with CT scan of chest, abd pelvis, UA. IVFs. Patient will be started on broadspectrum antibiotics. Time: 11:40 Reevaluation #3: Resting comfortably. Still appears warm and well perfused. Time: 13:38 Vital Signs Temperature 97.5 F L 11/28/17 10:47 Pulse Rate 99 11/28/17 10:47 Respiratory Rate 11/28/17 10:47 Blood Pressure 101/57 11/28/17 10:47 O2 Sat by Pulse Oximetry 85 11/28/17 10:47 Temperature 97.9 F 11/28/17 16:44 Pulse Rate 92 11/28/17 15:23 Respiratory Rate 22 11/28/17 16:43 Blood Pressure 113/92 11/28/17 15:23 O2 Sat by Pulse Oximetry 93 11/28/17 16:43 Oxygen Delivery Oxygen Delivery Nasal Cannula Medical Decision Making - [facility] Narrative Medical decision making narrative: Patient was evaluated for dyspnea. Patient does have a history of COPD with baseline steroid requirement. Patient had diffusely diminished lung sounds throughout. Patient was treated with triple nebs as well as steroids. Patient had basic labs which revealed a lactic acidosis. Given the degree lactic acidosis prompted CT imaging of the chest abdomen pelvis. Patient chest abdomen pelvis showed no acute abnormalities. Patient's chest x-ray initially showed bibasal her atelectasis versus pneumonia and given the degree of the lactic acidosis patient was covered with broad-spectrum antibiotics. Patient had blood cultures. Patient had a repeat lactate which was drawn prematurely without any specific intervention was noted to increase. She received 2 L IV fluid plus maintenance. Patient did not get overly aggressively hydrated given concerns of his cardiopulmonary function. Patient also had urinalysis screening for source of infection which was unremarkable. Patient will be admitted to hospital service for sepsis, COPD, elevated lactate. There elevation of lactate likely secondary to medications (METFORMIN) or recent catecholamine with nebs. - Lab Data Lab results reviewed: Yes I reviewed the patient's lab results. Result diagrams: 11/28/17 11:02 11/28/17 11:02 Lab Results 11/28/17 11/28/17 11/28/17 Range/Units 11:02 11:02 11:02 WBC 12.2 H (4.3-11.1) K/mcL RBC 3.94 L (4.19-5.50) M/mcL Hgb 10.9 L (12.9-16.9) g/dL Hct 35.2 L (37.5-50.1) % MCV 89.3 (83.0-100.0) fL MCH 27.7 L (28.0-33.3) pg MCHC 31.0 L (31.6-35.5) g/dL RDW 14.7 H (11.5-14.5) % Plt Count 246 (140-400) K/mcL MPV 10.0 (9.4-12.4) fL Immature Gran % 0.7 (0-4) % Seg Neutrophils % 89.9 % Lymphocytes % 3.6 % Monocytes % 5.3 % Eosinophils % 0.3 % Basophils % 0.2 % Neutrophils # 11.0 H (1.6-8.9) K/mcL Lymphocytes # 0.4 L (0.6-4.6) K/mcL Monocytes # 0.7 (0.0-1.3) K/mcL Eosinophils # 0.0 (0.0-0.6) K/mcL Basophils # 0.0 (0.0-0.2) K/mcL VBG pH (7.32-7.42) pH Units VBG pCO2 (41-51) mmHg VBG pO2 (25-50) mmHg VBG HCO3 (21-27) mEq/L Sodium 136 (136-145) mEq/L Potassium 4.1 (3.5-5.1) mEq/L Chloride 104 (98-107) mEq/L Carbon Dioxide 20 L (23-29) mEq/L BUN 27 H (8-23) mg/dL Creatinine 1.03 (0.70-1.30) mg/dL Est GFR ( Amer) > 60 (> 60) Est GFR (Non-Af Amer) > 60 (> 60) BUN/Creatinine Ratio 26 (6-26) Glucose 199 H (70-105) mg/dL Calculated Osmolality 293 (280-300) Lactic Acid 5.8 H* (0.5-2.2) mmol/L Calcium 10.4 H (8.6-10.3) mg/dL Troponin I 0.04 H* (< 0.04) ng/mL B-Natriuretic Peptide (Less than 100) pg/mL Urine Color (Yellow) Urine Clarity (Clear) Urine pH (5.0-8.0) pH Units Ur Specific [place] (1.010-1.025) Urine Protein (Neg-Trace) mg/dL Urine Glucose (UA) (Normal) mg/dL Urine Ketones (Negative) mg/dL Urine Blood (Negative) Urine Nitrite (Negative) Urine Bilirubin (Negative) Urine Urobilinogen (Normal) mg/dL Ur Leukocyte Esterase (Negative) 11/28/17 11/28/17 11/28/17 Range/Units 11:02 11:59 12:09 WBC (4.3-11.1) K/mcL RBC (4.19-5.50) M/mcL Hgb (12.9-16.9) g/dL Hct (37.5-50.1) % MCV (83.0-100.0) fL MCH (28.0-33.3) pg MCHC (31.6-35.5) g/dL RDW (11.5-14.5) % Plt Count (140-400) K/mcL MPV (9.4-12.4) fL Immature Gran % (0-4) % Seg Neutrophils % % Lymphocytes % % Monocytes % % Eosinophils % % Basophils % % Neutrophils # (1.6-8.9) K/mcL Lymphocytes # (0.6-4.6) K/mcL Monocytes # (0.0-1.3) K/mcL Eosinophils # (0.0-0.6) K/mcL Basophils # (0.0-0.2) K/mcL VBG pH 7.30 L (7.32-7.42) pH Units VBG pCO2 39 L (41-51) mmHg VBG pO2 53 H (25-50) mmHg VBG HCO3 19 L (21-27) mEq/L Sodium (136-145) mEq/L Potassium (3.5-5.1) mEq/L Chloride (98-107) mEq/L Carbon Dioxide (23-29) mEq/L BUN (8-23) mg/dL Creatinine (0.70-1.30) mg/dL Est GFR ( Amer) (> 60) Est GFR (Non-Af Amer) (> 60) BUN/Creatinine Ratio (6-26) Glucose (70-105) mg/dL Calculated Osmolality (280-300) Lactic Acid 6.8 H* (0.5-2.2) mmol/L Calcium (8.6-10.3) mg/dL Troponin I (< 0.04) ng/mL B-Natriuretic Peptide 862 H (Less than 100) pg/mL Urine Color (Yellow) Urine Clarity (Clear) Urine pH (5.0-8.0) pH Units Ur Specific [place] (1.010-1.025) Urine Protein (Neg-Trace) mg/dL Urine Glucose (UA) (Normal) mg/dL Urine Ketones (Negative) mg/dL Urine Blood (Negative) Urine Nitrite (Negative) Urine Bilirubin (Negative) Urine Urobilinogen (Normal) mg/dL Ur Leukocyte Esterase (Negative) 11/28/17 11/28/17 Range/Units 12:22 14:46 WBC (4.3-11.1) K/mcL RBC (4.19-5.50) M/mcL Hgb (12.9-16.9) g/dL Hct (37.5-50.1) % MCV (83.0-100.0) fL MCH (28.0-33.3) pg MCHC (31.6-35.5) g/dL RDW (11.5-14.5) % Plt Count (140-400) K/mcL MPV (9.4-12.4) fL Immature Gran % (0-4) % Seg Neutrophils % % Lymphocytes % % Monocytes % % Eosinophils % % Basophils % % Neutrophils # (1.6-8.9) K/mcL Lymphocytes # (0.6-4.6) K/mcL Monocytes # (0.0-1.3) K/mcL Eosinophils # (0.0-0.6) K/mcL Basophils # (0.0-0.2) K/mcL VBG pH (7.32-7.42) pH Units VBG pCO2 (41-51) mmHg VBG pO2 (25-50) mmHg VBG HCO3 (21-27) mEq/L Sodium (136-145) mEq/L Potassium (3.5-5.1) mEq/L Chloride (98-107) mEq/L Carbon Dioxide (23-29) mEq/L BUN (8-23) mg/dL Creatinine (0.70-1.30) mg/dL Est GFR ( Amer) (> 60) Est GFR (Non-Af Amer) (> 60) BUN/Creatinine Ratio (6-26) Glucose (70-105) mg/dL Calculated Osmolality (280-300) Lactic Acid 3.3 H (0.5-2.2) mmol/L Calcium (8.6-10.3) mg/dL Troponin I (< 0.04) ng/mL B-Natriuretic Peptide (Less than 100) pg/mL Urine Color Yellow (Yellow) Urine Clarity Clear (Clear) Urine pH 6.0 (5.0-8.0) pH Units Ur Specific [place] 1.023 (1.010-1.025) Urine Protein Trace (Neg-Trace) mg/dL Urine Glucose (UA) 250 H (Normal) mg/dL Urine Ketones Negative (Negative) mg/dL Urine Blood Negative (Negative) Urine Nitrite Negative (Negative) Urine Bilirubin Negative (Negative) Urine Urobilinogen Normal (Normal) mg/dL Ur Leukocyte Esterase Negative (Negative) - Radiology Data Radiology results reviewed: Yes I reviewed the patient's radiology results. Chest X-Ray 11/28/17 10:57 IMPRESSION: Mild bibasilar airspace disease suspected, atelectasis or pneumonia. Follow-up is recommended, preferably with a PA and lateral study. D/ / Graciela Luo Cha, MD / Graciela Luo Cha, MD Interpreting Provider: Graciela Luo Cha, MD Abdomen/Pelvis CTA 11/28/17 11:42 IMPRESSION: 1. No evidence of pulmonary embolism. 2. No evidence of aortic aneurysm or dissection. 3. No acute abnormality of the chest, abdomen, and pelvis. 4. Mild emphysema. D/ / Yan Kebede MD / Yan Kebede MD Interpreting Provider: Yan Kebede MD Chest CTA 11/28/17 11:42 IMPRESSION: 1. No evidence of pulmonary embolism. 2. No evidence of aortic aneurysm or dissection. 3. No acute abnormality of the chest, abdomen, and pelvis. 4. Mild emphysema. D/ / Yan Kebede MD / Yan Kebede MD Interpreting Provider: Yan Kebede MD - EKG Data EKG #1 EKG attestation: Yes I reviewed and interpreted this EKG. EKG shows normal: sinus rhythm Rate: normal Rhythm: NSR [place]/QRS: right axis deviation Q waves: II T wave inversions noted in: III, v1, v2, v3, v4 Interpretation: no acute changes, unchanged when compared to prior tracing (date ) (10/22/17), nonspecific ST-T wave changes S.B.AAilin - S.[email or web address] Situation: Demographics Background: Presenting Complaint Assessment: Vital Signs, Course and respsone to treatment, Patient/Family Expectation Recommendation: Barrier(s) to disposition, Recommendation based on pending studies, treatments, or consults S.B.AAilin Report Given to: Dr. Arlene Talley Repor Time: 13:45 Attestation Statement - Attestation Attestation: Patient was seen with resident physician. I reviewed the history, physical, assessment and plan, and agree with the findings. I also personally evaluated this patient and had [id number] time with this patient. 72-year-old male presents emergency Department with worsening short of breath. Patient has a history of COPD says his last episode has been getting progressively worse for the last week or so. He does take daily steroids. He is usually on 2 L of oxygen when he is sitting 3 L when he is walking around, he noted that he needed increased oxygen requirement nor did not feel bad. Denies chest pain denies fevers but he did say he had chills last night. No nausea vomiting or diarrhea. Review of systems as above remainder negative. Physical exam vital signs are stable. ENT is unremarkable. Heart regular rhythm and rate. Lungs patient has minimal wheezing throughout the lung you are is no increased work of breathing. Abdomen is soft and nontender. Extremities unremarkable. Neurologically intact. Skin no rashes. Psych normal. ED course we will do workup for pneumonia and COPD. We will treat with breathing treatments. Because of patient's already on steroids and essentially is failing outpatient management likely admit for respiratory therapy and additional inpatient management. His breathing was improved while in the emergency department. The hospitalist service will be notified for admission I agree with the resident physician assessment and plan. Sepsis Reassessment Note - Evaluation Sepsis Screen: No Definite Risk Current Stage of Sepsis: severe sepsis Possible Source of Sepsis: pulmonary - Focused Exam Date of Encounter: 11/28/17 Time of Encounter: 12:26 Vital Signs: Vital Signs Temp Pulse Resp BP Pulse Ox 11/28/17 15:23 92 22 113/92 93 11/28/17 13:53 84 18 113/64 95 11/28/17 12:39 94 96/56 92 11/28/17 12:09 97 100/60 91 11/28/17 11:45 96 19 91/54 92 11/28/17 11:04 98 11/28/17 11:03 89 15 93/45 96 11/28/17 10:50 97.5 F L 99 22 101/57 85 11/28/17 10:47 97.5 F L 99 22 101/57 85 Respiratory Exam: Present: CTA bilaterally Cardiovascular Exam: Present: RRR Capillary Refill: < 2 seconds Peripheral Pulse Strength: 1+ faint Peripheral Pulse Location: Radial Skin Exam: normal turgor
[2017-11-28 11:17] LABS: Basophils % 0.2 %; Eosinophils % 0.3 %; Hematocrit 35.2 % (37.5-50.1); Hemoglobin 10.9 g/dL (12.9-16.9); Immature Granulocytes % 0.7 % (0-4); Lymphocytes # 0.4 K/mcL (0.6-4.6); Lymphocytes % 3.6 %; Mean Corpuscular Hemoglobin 27.7 pg (28.0-33.3); Mean Corpuscular Volume 89.3 fL (83.0-100.0); Monocytes # 0.7 K/mcL (0.0-1.3); Monocytes % 5.3 %; Platelet Count 246 K/mcL (140-400); Red Blood Count 3.94 M/mcL (4.19-5.50); Red Cell Distribution Width 14.7 % (11.5-14.5); Segmented Neutrophils % 89.9 %
[2017-11-28] MEDS ORDERED: 0.9 % Sodium Chloride 1,000 ML IVC ONE ×2 (11:37→11:39)
[2017-11-28 11:38] LABS: BUN/Creatinine Ratio 26 (6-26); Blood Urea Nitrogen 27 mg/dL (8-23); Calcium 10.4 mg/dL (8.6-10.3); Carbon Dioxide 20 mEq/L (23-29); Chloride 104 mEq/L (98-107); Glucose 199 mg/dL (70-105); Osmolality,Calculated 293 (280-300); Potassium 4.1 mEq/L (3.5-5.1); Sodium 136 mEq/L (136-145); eGFR For African Americans > 60 (> 60); eGFR For Non-African Americans > 60 (> 60)
[2017-11-28 11:41] LABS: Troponin I 0.04 ng/mL (< 0.04)
[2017-11-28] MEDS ORDERED: Isovue-370 500 ML INFUS..BTL IV ONE (11:42)
[2017-11-28] MEDS ORDERED: Piperacillin/Tazobactam 3.375 GM in 0.9 % Sodium Chloride Mini Bag 100 ML IVPB ONE (11:44)
[2017-11-28 12:12] LABS: VBG HCO3 19 mEq/L (21-27); VBG PCO2 39 mmHg (41-51); VBG PO2 53 mmHg (25-50)
[2017-11-28] MEDS ORDERED: Aspirin 81 MG TAB.CHEW PO ONE (13:01)
[2017-11-28 13:02] LABS: Bilirubin,Urine Negative (Negative); Blood,Urine Negative (Negative); Clarity,Urine Clear (Clear); Color,Urine Yellow (Yellow); Glucose,Urine (UA) 250 mg/dL (Normal); Ketones,Urine Negative (Negative); Protein,Urine Trace mg/dL (Neg-Trace); Specific Gravity,Urine 1.023 (1.010-1.025); Urobilinogen,Urine Normal (Normal)
[2017-11-28 13:03] LABS: Leukocyte Esterase,Urine Negative (Negative); Nitrite,Urine Negative (Negative)
[2017-11-28] MEDS ORDERED: D5% in 0.45% NACL 1,000 ML IVC SCH (13:15)
[2017-11-28] MEDS ORDERED: Ipratropium/Albuterol Neb 3 ML IH PRN (14:24)
[2017-11-28] MEDS ORDERED: Gabapentin 100 MG CAPSULE PO PRN (14:24)
[2017-11-28] MEDS ORDERED: Dextrose Gel 15 GM/37.5 ML TUBE PO PRN ×2 (14:26)
[2017-11-28] MEDS ORDERED: *HR* Dextrose 50 % in Water (Syg) 50 ML SYRINGE IVP PRN (14:26)
[2017-11-28] MEDS ORDERED: D5% in Water 1,000 ML IVC PRN (14:26)
[2017-11-28] MEDS ORDERED: Naloxone 0.4 MG/ML INJ IVP PRN (14:28)
--- NOTE | 2017-11-28 14:33 | Internal Med History&Physical ---
Date of Encounter: 11/28/17 Time of Encounter: 14:31 Internal Medicine - H&P: HPI Chief complaint: Shortness of breath History of present illness: Mr. Starks is a 72 year old male with a history of COPD on baseline 2-3 L nasal cannula on chronic prednisone 10 mg daily, quit smoking approximately 16 years ago, atrial fibrillation that is chronic on dual antiplatelet therapy, CAD status post stent in 1994, diabetes type 2, who presents with acute 3 days history of worsening shortness of breath. Admitted for suspected COPD exacerbation and evaluation of lactic acidosis. The patient reports subacute decline in rest for status in the last 1 month. However in the last 3 days develop acute worsening with shortness of breath on exertion and ambulation around his home. Associated with chills and Rieke's but denies fever. Symptoms have not been improving with time leading to hospital admission. Denies any urinary symptoms EKG personally reviewed with atrial fibrillation, right bundle branch block , rate less than 100 CT/CT angio abdomen pelvis IMPRESSION: 1. No evidence of pulmonary embolism. 2. No evidence of aortic aneurysm or dissection. 3. No acute abnormality of the chest, abdomen, and pelvis. 4. Mild emphysema. CT/CT angio chest IMPRESSION: 1. No evidence of pulmonary embolism. 2. No evidence of aortic aneurysm or dissection. 3. No acute abnormality of the chest, abdomen, and pelvis. 4. Mild emphysema. XR/XR chest 1V portable IMPRESSION: Mild bibasilar airspace disease suspected, atelectasis or pneumonia. Follow-up is recommended, preferably with a PA and lateral study. Past Med Surg Social Fam HX - Past Medical History Medical history: cancer, COPD, coronary artery disease, diabetes, glaucoma, hyperlipidemia, hypertension, myocardial infarction, peripheral artery disease, other Additional medical history: ANEMIA, SLEEP APNEA, CPAP,SKIN CANCER Psychiatric history: no psych history - Past Surgical History Surgical History: angioplasty/stent, other Additional surgical history: RECTAL SURGERY, KNEE SURGERY, CATARACT REMOVAL, CARDIAC STENT, LUNG BIOPSY, ANGIOGRAM WITH ANGIOPLASTY OF LEFT FEMORAL ARTERAY, SKIN CANCER REMOVED - Social History Smoking Status: Former smoker Smokeless Tobacco Status: No Alcohol use: rarely Drug use: none - Family History Mother Living Status: Hx Family Cardiac Disorders: No Hx Family Respiratory Disorders: No Hx Family Cancer: No Hx Family GI Disorders: No Hx Family Endocrine Disorder: No Hx Family Neuromuscular Disorders: No Hx Family Neurologic Disorders: No Hx Family HEENT Disorders: No Hx Family Autoimmune Disorders: No Father Adopted: No Family Member Ethnicity: Non- Living Status: Hx Family Cardiac Disorders: Yes Hx Family Respiratory Disorders: No Hx Family Cancer: No Hx Family GI Disorders: No Hx Family Endocrine Disorder: No Hx Family Neuromuscular Disorders: No Hx Family Neurologic Disorders: No Hx Family HEENT Disorders: No Hx Family Autoimmune Disorders: No Internal Medicine - H&P: Meds Metformin HCl [Fortamet] 1,000 mg PO BID 02/03/15 [History] Cyclosporine [Restasis] 1 drop BOTH EYES BID 07/10/15 [History] Fluticasone Propionate Nasal [Flonase] 50 mcg NS BID 07/10/15 [History] Furosemide [Lasix] 20 mg PO DAILY PRN 09/06/16 [History] Gabapentin [Neurontin] 100 mg PO HS PRN 09/06/16 [History] Ipratropium/Albuterol Neb [Duoneb] 3 ml IH Q6HR 09/06/16 [History] Roflumilast [Daliresp] 500 mcg PO DAILY 07/22/17 [History] Albuterol Sulfate [Proair Respiclick] 90 mcg IH Q4H PRN 10/23/17 [History] Aspirin [Lo-Dose Aspirin EC] 81 mg PO DAILY 10/23/17 [History] Clopidogrel Bisulfate [Plavix] 75 mg PO DAILY #30 tablet 10/23/17 [Rx] Exenatide Microspheres [Bydureon] 2 mg SQ QWEEK 10/23/17 [History] Tamsulosin [Flomax] 0.4 mg PO DAILY 10/23/17 [History] predniSONE [PredniSONE] 10 mg PO DAILY 10/23/17 [History] Alphagan 1 drop BOTH EYES TID 11/28/17 [History] Calcium 600-D3 Plus Caplet 1,200 mg PO DAILY 11/28/17 [History] Finasteride [Proscar] 5 mg PO DAILY 11/28/17 [History] Fluticasone/Salmeterol [Advair Hfa 230-21 Mcg Inhaler] 2 puff IH BID 11/28/17 [ History] Latanoprost [Xalatan] 1 drop BOTH EYES HS 11/28/17 [History] Latanoprost [Xalatan] 1 drop OP HS 11/28/17 [History] Nebivolol HCl [Bystolic] 2.5 mg PO DAILY 11/28/17 [History] Ramipril [Altace] 5 mg PO DAILY 11/28/17 [History] Ramipril [Altace] 5 mg PO DAILY 11/28/17 [History] glipiZIDE [Glipizide] 10 mg PO DAILY 11/28/17 [History] 3 Allergy/AdvReac Type Severity Reaction Status Date / Time metoprolol Allergy Hypotension Verified 10/23/17 09:18 Qujlkon-Zsj-Rsi Reductase Allergy See Verified 07/22/17 10:14 Inhibitor Comments [Statins] glimepiride [From Amaryl] AdvReac Numbness Verified 10/23/17 09:18 glipizide [From Glucotrol] AdvReac See Verified 10/23/17 09:18 Comments levofloxacin [From Levaquin] AdvReac See Verified 10/23/17 09:18 Comments sitagliptin [From Januvia] AdvReac See Verified 10/23/17 09:18 Comments All Systems PM: A 10-system review of systems was performed and is negative for pertinent findings except as documented above in the HPI. Review of systems: ROS 14 point review of systems reviewed as best as possible given presentation. Pertinent positive or negative as per HPI or otherwise reviewed as negative - Constitutional Vitals: Temp Pulse Resp BP Pulse Ox 97.5 F L 84 18 113/64 95 11/28/17 10:50 11/28/17 13:53 11/28/17 13:53 11/28/17 13:53 11/28/17 13:53 Exam: General - AAO x 3 Psych - Appropriate affect/speech. No agitation Eyes - KADE. Eye lids intact. No scleral icterus Neuro - No gross peripheral or central neuro deficits on inspection Heart - Sinus. RRR. S1 and S2 present. No added HS/murmurs appreciated. No elevated JVD appreciated. Lung - decreased air entry b/l, scant bibasal crackles, no wheezes appreciated GI - Soft, non-tender. No hepatosplenomegaly/ascites. BS+ - No CVA/suprapubic tenderness or palpable bladder distension Skin - Intact. No rash/petechiae/ecchymosis. Warm extremities. +1 b/l LLE edema Internal Med - H&P Results - Labs CBC & Chem 7: 11/28/17 11:02 11/28/17 11:02 Labs: Short CBC 11/28/17 Range/Units 11:02 WBC 12.2 H (4.3-11.1) K/mcL Hgb 10.9 L (12.9-16.9) g/dL Hct 35.2 L (37.5-50.1) % Plt Count 246 (140-400) K/mcL Neutrophils # 11.0 H (1.6-8.9) K/mcL BMP 11/28/17 11:02 Sodium 136 Potassium 4.1 Chloride 104 Carbon Dioxide 20 L BUN 27 H Creatinine 1.03 Glucose 199 H Calcium 10.4 H Cardiac Enzymes 11/28/17 Range/Units 11:02 Troponin I 0.04 H* (< 0.04) ng/mL Urine 11/28/17 Range/Units 12:22 Urine Color Yellow (Yellow) Urine Clarity Clear (Clear) Urine pH 6.0 (5.0-8.0) pH Units Ur Specific [place] 1.023 (1.010-1.025) Urine Protein Trace (Neg-Trace) mg/dL Urine Glucose (UA) 250 H (Normal) mg/dL - ABG Interpretation ABG results: 11/28/17 12:09 VBG pH 7.30 L VBG pCO2 39 L VBG pO2 53 H VBG HCO3 19 L - Impressions ITS Impressions Chest X-Ray 11/28/17 10:57 IMPRESSION: Mild bibasilar airspace disease suspected, atelectasis or pneumonia. Follow-up is recommended, preferably with a PA and lateral study. D/ / Graciela Luo Cha, MD / Graciela Luo Cha, MD Interpreting Provider: Graciela Luo Cha, MD Abdomen/Pelvis CTA 11/28/17 11:42 IMPRESSION: 1. No evidence of pulmonary embolism. 2. No evidence of aortic aneurysm or dissection. 3. No acute abnormality of the chest, abdomen, and pelvis. 4. Mild emphysema. D/ / 11/28/2017 13:32:41 Yan Kebede MD / caroline Interpreting Provider: Yan Kebede MD Chest CTA 11/28/17 11:42 IMPRESSION: 1. No evidence of pulmonary embolism. 2. No evidence of aortic aneurysm or dissection. 3. No acute abnormality of the chest, abdomen, and pelvis. 4. Mild emphysema. D/ / 11/28/2017 13:32:41 Yan Kebede MD / caroline Interpreting Provider: Yan Kebede MD - Assessment and plan (1) COPD (chronic obstructive pulmonary disease) Current Visit: Yes Status: Acute Assessment and plan: suspect respiratory symptoms 2/2 to COPD flare of note, he is on chronic 10mg prednisone duonebs, Iv steroids, Iv levaquin send serologies, RVP Qualifiers: COPD type: unspecified COPD Qualified Code(s): J44.9 - Chronic obstructive pulmonary disease, unspecified (2) Elevated lactic acid level Current Visit: Yes Status: Acute Assessment and plan: no overt evidence of sepsis although lactic elevated trend lactic blood cx pend completed CT C/A/P in the ED w/o overt foci UA/urine cx pend (3) Diabetes Current Visit: No Status: Chronic Assessment and plan: ISS ac/hs Qualifiers: Diabetes mellitus type: type 2 Qualified Code(s): E11.9 - Type 2 diabetes mellitus without complications (4) History of coronary artery disease Current Visit: No Status: Chronic Assessment and plan: continue cardiac med. s/p stent 1994 (5) BPH (benign prostatic hyperplasia) Current Visit: No Status: Chronic Assessment and plan: continue med Qualifiers: Lower urinary tract symptom presence: symptoms absent Qualified Code(s): N40.0 - Benign prostatic hyperplasia without lower urinary tract symptoms - Time Spent With Patient Total time spent is greater than 50% in coordination of care (as documented) at patient's floor/unit and/or counseling patient:
[2017-11-28] MEDS: Ipratropium/Albuterol Neb 3 ML IH SCH ×2 (16:40→21:04)
[2017-11-28] MEDS: MethylPREDNISolone 40 MG/ML VIAL IVP SCH ×2 (18:22→23:35)
[2017-11-28] MEDS: Levofloxacin 500 MG/100 ML 500 MG/100 ML BAG IVPB SCH (18:22)
[2017-11-28] MEDS: Insulin LISPRO 300 UNITS/3 ML VIAL SQ SCH ×2 (18:32→21:58)
--- NOTE | 2017-11-28 18:48 | Sepsis Event Note ---
Sepsis Reassessment Note - Evaluation Sepsis Screen: No Definite Risk Current Stage of Sepsis: sepsis Reason for ruling out sepsis: I am uncertain whether he has sepsis Clinical picture stable - Focused Exam Date of Encounter: 11/28/17 Time of Encounter: 18:47 Vital Signs: Vital Signs Temp Resp Pulse Ox 11/28/17 16:44 97.9 F 11/28/17 16:43 22 93 Respiratory Exam: Present: CTA bilaterally Cardiovascular Exam: Present: RRR Capillary Refill: < 2 seconds Peripheral Pulse Strength: 3+ normal Peripheral Pulse Location: Radial Skin Exam: normal turgor
[2017-11-28] MEDS: Budesonide/Formoterol 160/4.5 MDI IH SCH (21:04)
[2017-11-28] MEDS: Fluticasone Propionate Nasal 50 MCG/SPRAY BOTTLE NS SCH (21:58)
[2017-11-28] MEDS: 0.9 % Sodium Chloride 1,000 ML IVC SCH (22:00)
[2017-11-28 23:39] LABS: Bilirubin,Urine Negative (Negative); Blood,Urine Negative (Negative); Clarity,Urine Clear (Clear); Color,Urine Yellow (Yellow); Glucose,Urine (UA) >=1000 mg/dL (Normal); Ketones,Urine Trace mg/dL (Negative); Leukocyte Esterase,Urine Negative (Negative); Nitrite,Urine Negative (Negative); PH,Urine 5.5 pH Units (5.0-8.0); Protein,Urine Negative (Neg-Trace); Specific Gravity,Urine > 1.030 (1.010-1.025); Urobilinogen,Urine Normal (Normal)
[2017-11-29] MEDS ORDERED: 0.9 % Sodium Chloride 1,000 ML IVC ONE (01:23)
[2017-11-29 02:50] LABS: Adenovirus Not Detected (Not Detect); Bordetella Pertussis Not Detected (Not Detect); Chlamydophila pneumoniae Not Detected (Not Detect); Coronavirus 229E Not Detected (Not Detect); Coronavirus HKU1 Not Detected (Not Detect); Coronavirus NL63 Not Detected (Not Detect); Coronavirus OC43 Not Detected (Not Detect); Human Metapneumovirus Not Detected (Not Detect); Human Rhinovirus/Enterovirus Not Detected (Not Detect); Influenza A Subtype 2009 H1 Not Detected (Not Detect); Influenza A Untypeable Not Detected (Not Detect); Influenza B Not Detected (Not Detect); Mycoplasma pneumoniae Not Detected (Not Detect); Parainfluenza Virus 1 Not Detected (Not Detect); Parainfluenza Virus 2 Not Detected (Not Detect); Parainfluenza Virus 3 Not Detected (Not Detect); Parainfluenza Virus 4 Not Detected (Not Detect); Respiratory Syncytial Virus Not Detected (Not Detect)
[2017-11-29] MEDS: *HR* Enoxaparin 30 MG/0.3 ML SYRINGE SQ SCH (06:10)
[2017-11-29] MEDS: MethylPREDNISolone 40 MG/ML VIAL IVP SCH ×4 (06:10→23:39)
[2017-11-29 06:52] LABS: Hematocrit 32.9 % (37.5-50.1); Immature Granulocytes % 0.5 % (0-4); Lymphocytes # 0.3 K/mcL (0.6-4.6); Lymphocytes % 2.9 %; Mean Corpuscular HGB Conc 30.4 g/dL (31.6-35.5); Mean Corpuscular Hemoglobin 26.7 pg (28.0-33.3); Mean Platelet Volume 10.4 fL (9.4-12.4); Monocytes # 0.3 K/mcL (0.0-1.3); Monocytes % 3.4 %; Neutrophils # 9.2 K/mcL (1.6-8.9); Platelet Count 239 K/mcL (140-400); Red Blood Count 3.74 M/mcL (4.19-5.50); Red Cell Distribution Width 14.7 % (11.5-14.5); Segmented Neutrophils % 93.2 %
[2017-11-29 07:07] LABS: BUN/Creatinine Ratio 25 (6-26); Blood Urea Nitrogen 21 mg/dL (8-23); Calcium 9.3 mg/dL (8.6-10.3); Carbon Dioxide 20 mEq/L (23-29); Chloride 110 mEq/L (98-107); Glucose 225 mg/dL (70-105); Osmolality,Calculated 298 (280-300); Potassium 4.1 mEq/L (3.5-5.1); Sodium 139 mEq/L (136-145); eGFR For African Americans > 60 (> 60); eGFR For Non-African Americans > 60 (> 60)
[2017-11-29 07:08] LABS: Troponin I 0.03 ng/mL (< 0.04)
[2017-11-29] MEDS: Finasteride 5 MG TABLET PO SCH (08:48)
[2017-11-29] MEDS: Insulin LISPRO 300 UNITS/3 ML VIAL SQ SCH ×4 (08:48→21:46)
[2017-11-29] MEDS: Aspirin Enteric Coated 81 MG Tablet PO SCH (08:48)
[2017-11-29] MEDS: Levofloxacin 500 MG/100 ML 500 MG/100 ML BAG IVPB SCH (08:52)
[2017-11-29] MEDS: Fluticasone Propionate Nasal 50 MCG/SPRAY BOTTLE NS SCH ×2 (08:55→21:44)
[2017-11-29] MEDS ORDERED: (Roflumilast [Daliresp] 500 MCG) PO SCH (09:00)
[2017-11-29] MEDS: Ipratropium/Albuterol Neb 3 ML IH SCH ×4 (10:13→22:07)
[2017-11-29] MEDS: Budesonide/Formoterol 160/4.5 MDI IH SCH ×2 (10:13→22:07)
[2017-11-29] MEDS ORDERED: Perflutren Lipid Microsphere 1.3 ML in 0.9 % Sodium Chloride 8.7 ML IVP ONE (11:23)
--- NOTE | 2017-11-29 12:27 | Internal Med Progress Note ---
Date of Encounter: 11/29/17 Time of Encounter: 12:26 - Assessment and plan (1) Diabetes Current Visit: Yes Status: Chronic Assessment and plan: ISS ac/hs Qualifiers: Diabetes mellitus type: type 2 Diabetes mellitus joint terminal attack controller insulin use: without joint terminal attack controller use Diabetes mellitus complication status: with circulatory complication Diabetes mellitus complication detail: with other circulatory complications Qualified Code(s): E11.59 - Type 2 diabetes mellitus with other circulatory complications (2) History of coronary artery disease Current Visit: Yes Status: Chronic Assessment and plan: continue cardiac med. s/p stent 1994 (3) BPH (benign prostatic hyperplasia) Current Visit: Yes Status: Chronic Assessment and plan: continue meds Qualifiers: Lower urinary tract symptom presence: symptoms absent Qualified Code(s): N40.0 - Benign prostatic hyperplasia without lower urinary tract symptoms (4) COPD (chronic obstructive pulmonary disease) Current Visit: Yes Status: Acute Assessment and plan: Patient with chronic resp failure on Home O2, and chronic steroid therapy who presented with SOB and lactic acidosis Continue solumedrol, levaquin and duonebs Qualifiers: COPD type: unspecified COPD Qualified Code(s): J44.9 - Chronic obstructive pulmonary disease, unspecified (5) Elevated lactic acid level Current Visit: Yes Status: Acute Assessment and plan: probably due to hypoxia Not septic Improving continue to monitor (6) MEGAN (obstructive sleep apnea) Current Visit: Yes Status: Chronic Assessment and plan: CPAP at bedtime (7) PAD (peripheral artery disease) Current Visit: Yes Status: Chronic Assessment and plan: continue home meds (8) Lactic acidosis Current Visit: Yes Status: Acute Assessment and plan: Improving continue to monitor - Time Spent With Patient Total time spent is greater than 50% in coordination of care (as documented) at patient's floor/unit and/or counseling patient: - Subjective Interval history: Seen and examined at bedside 72 M with severe COPD, with CRF with hypoxia on chronic steroid therapy, MEGAN on CPAP, CHF (undetermined if systolic or diastolic), CAD, Glaucoma, PAD He is admitted and being managed for COPDE and lactic acidosis he is not septic, he is not wheezing on exam Lactate is improving ECHO is pending Patient reports taking lasix at home, not confirmed, follow WCHO - Constitutional Vitals: Temp Pulse Resp BP Pulse Ox 97.6 F 131 16 132/86 93 11/29/17 03:14 11/29/17 08:23 11/29/17 10:14 11/29/17 08:23 11/29/17 10:14 General appearance: Present: mild distress, A&O X 3, pleasant - Head Head exam: Present: atraumatic, normocephalic - Eye Eye exam: Present: PERRL, conjuntiva pink, sclera anicteric Pupils: Present: PERRL - Neck Neck exam general surgery: Present: supple, trachea midline. Absent: lymphadenopathy - Respiratory Respiratory exam: Present: CTAB - Cardiovascular Cardiovascular exam: Present: RRR, +S1, +S2. Absent: diastolic murmur, gallop, rubs, systolic murmur - GI/Abdominal GI/Abdominal exam: Present: normal bowel sounds, soft, no peritoneal signs. Absent: distended, tenderness - Extremities Exam Extremities exam: Present: pedal edema (chronic venous stasis changes, 1+ pedal edema bilaterally), warm, radial pulses palpable and symmetrical. Absent: calf tenderness, cyanotic - Neurological Exam Neurological exam: Present: alert, CN II-XII intact, oriented X3, no focal deficits. Absent: pronater drift, facial droop, speech deficit - Skin Skin exam: Present: dry, intact Internal Medicine: Result - Labs CBC & Chem 7: 11/29/17 06:31 11/29/17 06:31 Labs: Short CBC 11/29/17 Range/Units 06:31 WBC 9.8 (4.3-11.1) K/mcL Hgb 10.0 L (12.9-16.9) g/dL Hct 32.9 L (37.5-50.1) % Plt Count 239 (140-400) K/mcL Neutrophils # 9.2 H (1.6-8.9) K/mcL BMP 11/29/17 06:31 Sodium 139 Potassium 4.1 Chloride 110 H Carbon Dioxide 20 L BUN 21 Creatinine 0.83 Glucose 225 H Calcium 9.3 Cardiac Enzymes 11/28/17 11/29/17 Range/Units 21:38 06:31 Troponin I 0.03 0.03 (< 0.04) ng/mL Urine 11/28/17 Range/Units 23:20 Urine Color Yellow (Yellow) Urine Clarity Clear (Clear) Urine pH 5.5 (5.0-8.0) pH Units Ur Specific [place] > 1.030 H (1.010-1.025) Urine Protein Negative (Neg-Trace) mg/dL Urine Glucose (UA) >=1000 H (Normal) mg/dL Consult Discharge Plan - Plan Referrals: Alfonso Shane MD [Primary Care Provider] -
[2017-11-29] MEDS ORDERED: Artificial Tears SOLN 15 ML BOTTLE BOTH EYES PRN (12:33)
[2017-11-29 13:09] LABS: ABG Base Excess -10 mEq/L (-2 to 3); ABG HCO3 14 mEq/L (21-27); ABG Oxygen Saturation 94 % (95-98); ABG PCO2 23 mmHg (35-45); ABG PH 7.39 pH Units (7.32-7.45); ABG PO2 68 mmHg (85-104); ABG TCO2 15 mEq/L (20-26)
[2017-11-29] MEDS: DALIRESP 500 MCG PO SCH (15:23)
[2017-11-29] MEDS: 0.9 % Sodium Chloride 1,000 ML IVC SCH (17:10)
[2017-11-29] MEDS: Lacri-Lube 3.5 GM TUBE BOTH EYES SCH (21:45)
[2017-11-29] MEDS: Latanoprost 2.5 ML BOTTLE BOTH EYES SCH (21:45)
[2017-11-30] MEDS: 0.9 % Sodium Chloride 1,000 ML IVC SCH (03:06)
[2017-11-30] MEDS: Ipratropium/Albuterol Neb 3 ML IH SCH ×4 (05:03→22:42)
[2017-11-30 06:00] LABS: Basophils % 0.1 %; Hemoglobin 11.4 g/dL (12.9-16.9); Immature Granulocytes % 0.5 % (0-4); Lymphocytes # 0.4 K/mcL (0.6-4.6); Lymphocytes % 2.6 %; Mean Corpuscular HGB Conc 30.8 g/dL (31.6-35.5); Mean Corpuscular Hemoglobin 27.3 pg (28.0-33.3); Mean Corpuscular Volume 88.7 fL (83.0-100.0); Mean Platelet Volume 10.4 fL (9.4-12.4); Monocytes # 0.5 K/mcL (0.0-1.3); Monocytes % 3.3 %; Neutrophils # 14.6 K/mcL (1.6-8.9); Nucleated Red Blood Cells 0.2 /100 WBC (0); Platelet Count 298 K/mcL (140-400); Red Blood Count 4.17 M/mcL (4.19-5.50); Red Cell Distribution Width 14.8 % (11.5-14.5); Segmented Neutrophils % 93.5 %
[2017-11-30 06:19] LABS: BUN/Creatinine Ratio 30 (6-26); Blood Urea Nitrogen 30 mg/dL (8-23); Calcium 9.5 mg/dL (8.6-10.3); Carbon Dioxide 17 mEq/L (23-29); Chloride 108 mEq/L (98-107); Glucose 245 mg/dL (70-105); Osmolality,Calculated 300 (280-300); Potassium 4.2 mEq/L (3.5-5.1); Sodium 138 mEq/L (136-145); eGFR For African Americans > 60 (> 60); eGFR For Non-African Americans > 60 (> 60)
[2017-11-30] MEDS: *HR* Enoxaparin 30 MG/0.3 ML SYRINGE SQ SCH (06:52)
[2017-11-30] MEDS: MethylPREDNISolone 40 MG/ML VIAL IVP SCH (06:52)
[2017-11-30] MEDS: Aspirin Enteric Coated 81 MG Tablet PO SCH (08:14)
[2017-11-30] MEDS: Finasteride 5 MG TABLET PO SCH (08:14)
[2017-11-30] MEDS: Levofloxacin 500 MG/100 ML 500 MG/100 ML BAG IVPB SCH (08:15)
[2017-11-30] MEDS: Insulin LISPRO 300 UNITS/3 ML VIAL SQ SCH ×4 (08:15→20:57)
[2017-11-30] MEDS: Fluticasone Propionate Nasal 50 MCG/SPRAY BOTTLE NS SCH ×2 (08:15→20:47)
[2017-11-30] MEDS: DALIRESP 500 MCG PO SCH (08:16)
--- NOTE | 2017-11-30 09:46 | Electrocardiograph Report ---
[address] [place] [address] Test Date: 2017-11-28 Pat Name: Nilton Starks Department: 103 Room: 2NE25 Gender: M Jointer Machine: MSC : [id number] Requested By: Oliver Pisano Order Number: [id number] Reading MD: Jayesh Guzman Measurements Intervals [place] Rate: 93 P: GA: 0 QRS: 213 QRSD: 145 T: -21 QT: 384 QTc: 434 Interpretive Statements SINUS RHYTHM MARKED RIGHT AXIS DEVIATION RIGHT BUNDLE BRANCH BLOCK INFERIOR MYOCARDIAL INFARCTION, OF INDETERMINATE AGE ST DEVIATION AND MODERATE T-WAVE ABNORMALITY, CONSIDER ANTERIOR ISCHEMIA Electronically Signed On 11-30-2017 9:44:42 EDT by Jayesh Guzman
--- NOTE | 2017-11-30 10:06 | Internal Med Progress Note ---
Date of Encounter: 11/30/17 Time of Encounter: 14:44 - Assessment and plan (1) COPD (chronic obstructive pulmonary disease) Current Visit: Yes Status: Acute Assessment and plan: Patient with chronic resp failure on Home O2, and chronic steroid therapy who presented with SOB and lactic acidosis Continue solumedrol, levaquin and duonebs Switch to prednisone 40mg daily, continue current care Will consult pulmonology per patient request Qualifiers: COPD type: COPD with acute exacerbation Qualified Code(s): J44.1 - Chronic obstructive pulmonary disease with (acute) exacerbation (2) Elevated lactic acid level Current Visit: Yes Status: Acute Assessment and plan: Admitting lactate 5.8-6.8 Initially improved , now worsened Lactate this a.m 5.8 Improved to 4.0 patient cannot get IVF due to CHF with ECHO showing evidence of fluid overload (3) Diabetes Current Visit: Yes Status: Chronic Assessment and plan: ISS ac/hs Qualifiers: Diabetes mellitus type: type 2 Diabetes mellitus senior care insulin use: without senior care use Diabetes mellitus complication status: with circulatory complication Diabetes mellitus complication detail: with other circulatory complications Qualified Code(s): E11.59 - Type 2 diabetes mellitus with other circulatory complications (4) History of coronary artery disease Current Visit: Yes Status: Chronic Assessment and plan: continue cardiac med. s/p stent 1994 (5) BPH (benign prostatic hyperplasia) Current Visit: Yes Status: Chronic Assessment and plan: continue meds Qualifiers: Lower urinary tract symptom presence: symptoms absent Qualified Code(s): N40.0 - Benign prostatic hyperplasia without lower urinary tract symptoms (6) MEGAN (obstructive sleep apnea) Current Visit: Yes Status: Chronic Assessment and plan: CPAP at bedtime (7) PAD (peripheral artery disease) Current Visit: Yes Status: Chronic Assessment and plan: continue home meds (8) CHF (congestive heart failure) Current Visit: Yes Status: Acute Assessment and plan: ECHo: LVEF 65%, Indetermintae diastolic function, mild LVH, moderate dilated LV Severe Pulm HTN Septal flattening in systole and diastole indicating pressure and volume overload Start on lasix IV 40mg daily Strict I/Os Fluid restriction diet Qualifiers: Heart failure type: diastolic Heart failure chronicity: acute on chronic Qualified Code(s): I50.33 - Acute on chronic diastolic (congestive) heart failure - Time Spent With Patient Total time spent is greater than 50% in coordination of care (as documented) at patient's floor/unit and/or counseling patient: - Subjective Interval history: Seen and examined at bedside 72 M with severe COPD, with CRF with hypoxia on chronic steroid therapy, MEGAN on CPAP, CHF (undetermined if systolic or diastolic), CAD, Glaucoma, PAD He is admitted and being managed for COPDE and lactic acidosis he is not septic, he is not wheezing on exam he denies new complains, but reports he is the same as he was prior to admission without any improvement Will consult pulmonology ECHO showed evidence of fluid overload, patient has been started on lasix - Constitutional Vitals: Temp Pulse Resp BP Pulse Ox 98.7 F 102 19 137/86 88 11/30/17 06:47 11/30/17 06:47 11/30/17 06:47 11/30/17 06:47 11/30/17 08:25 General appearance: Present: A&O X 3, pleasant, no acute distress Exam: sitting up in chair, not in any form of distress - Head Head exam: Present: atraumatic, normocephalic - Eye Eye exam: Present: PERRL, conjuntiva pink, sclera anicteric Pupils: Present: PERRL - Neck Neck exam general surgery: Present: supple, trachea midline. Absent: lymphadenopathy - Respiratory Respiratory exam: Present: decreased breath sounds - Cardiovascular Cardiovascular exam: Present: RRR, +S1, +S2. Absent: diastolic murmur, gallop, rubs, systolic murmur - GI/Abdominal GI/Abdominal exam: Present: normal bowel sounds, soft, no peritoneal signs. Absent: distended, tenderness - Extremities Exam Extremities exam: Present: warm, radial pulses palpable and symmetrical. Absent : calf tenderness, cyanotic, pedal edema - Neurological Exam Neurological exam: Present: alert, CN II-XII intact, oriented X3, no focal deficits. Absent: pronater drift, facial droop, speech deficit - Skin Skin exam: Present: dry, intact Internal Medicine: Result - Labs CBC & Chem 7: 11/30/17 05:45 11/30/17 05:45 Labs: Short CBC 11/30/17 Range/Units 05:45 WBC 15.6 H D (4.3-11.1) K/mcL Hgb 11.4 L (12.9-16.9) g/dL Hct 37.0 L (37.5-50.1) % Plt Count 298 (140-400) K/mcL Neutrophils # 14.6 H (1.6-8.9) K/mcL BMP 11/30/17 05:45 Sodium 138 Potassium 4.2 Chloride 108 H Carbon Dioxide 17 L BUN 30 H Creatinine 1.01 Glucose 245 H Calcium 9.5 - ABG Interpretation ABG results: ABG ABG pH 7.39 pH Units (7.32-7.45) 11/29/17 13:04 ABG pCO2 23 mmHg (35-45) L 11/29/17 13:04 ABG pO2 68 mmHg (85-104) L 11/29/17 13:04 ABG O2 Saturation 94 % (95-98) L 11/29/17 13:04 - Impressions Impressions Echocardiogram 11/29/17 18:44 Impressions: LVEF 65%. Indeterminate diastolic function. Mild concentric left ventricular hypertrophy. There is no LV thrombus. Moderately dilated right ventricle. Moderate right ventricular hypokinesis. Moderately dilated right atrium. Severe pulmonary hypertension. Septal flattening in systole and diastole indicating pressure and volume overload Septal Bounce Definity in RV apex : cannot rule out clot Left Ventricular Wall Motion: Rest Echo Findings All wall segments showed normal motion. Findings: Study Quality * Technically adequate exam. ECG Findings * Atrial fibrillation. Left Ventricle * LVEF 65%. * Indeterminate diastolic function. * Mild concentric left ventricular hypertrophy. * There is no LV thrombus. Right Ventricle * Moderately dilated right ventricle. * Moderate right ventricular hypokinesis. Left Atrium * Normal left atrial size. Right Atrium * Moderately dilated right atrium. Interatrial Septum * No evidence of PFO by color Doppler. Aortic Valve * Aortic valve not well visualized. Mitral Valve * Normal mitral valve structure and function. Tricuspid Valve * Estimated RVSP is 78 mmHg. * Estimated RA pressure is 15 mmHg. * Severe pulmonary hypertension. Pulmonic Valve * Mild pulmonic regurgitation. Aorta * Normally sized aortic root. Pericardium * The pericardium appears normal. IVC * The IVC is dilated. * < 50% respiratory change. Consult Discharge Plan - Plan Referrals: Alfonso Shane MD [Primary Care Provider] -
[2017-11-30] MEDS: Budesonide/Formoterol 160/4.5 MDI IH SCH ×2 (10:40→22:43)
[2017-11-30] MEDS: Furosemide 40 MG/4 ML VIAL IVP SCH (10:58)
--- NOTE | 2017-11-30 16:47 | Pulmonology Consult Note ---
Date of Encounter: 11/30/17 Time of Encounter: 16:00 Assessment and Plan (1) Acute exacerbation of chronic obstructive airways disease Current Visit: No Status: Suspected Unfortunately patient's condition is deteriorating and possibly this is a natural course of his disease and with an exacerbation that could even worsen his lung function further. Patient is on appropriate treatment with empiric antibiotic and steroid and bronchodilators. Keep SPO2 around 90% and wean off oxygen for that goal. I have explained this to the patient and he understand and agreed with the treatment. As outpatient he will need pulmonary rehabilitation as tolerated. Patient is on long-term use of systemic steroid and DEXA scan was ordered as outpatient. Thank you for consultation we will continue follow-up. History of Present Illness Consult date: 11/30/17 Requesting physician: Adelfo Hogue Reason for consult: COPD Chief complaint: Dyspnea History of present illness: This is a pleasant 72-year-old male with history of COPD on home oxygen and he is known to me from outpatient clinic. Patient has been having worsening of his dyspnea and he was seen in the office and he is on prednisone 10 mg on daily basis for symptoms control and he is a former smoker. Patient was having mainly more dyspnea without significant change in his productive cough or wheezing and he was admitted to the hospital for COPD exacerbation. The patient feels slightly better but still have poor appetite and not back to his normal status of health. Patient denies any significant fever but he was feeling chills and denies any hemoptysis or significant chest pain. Past Med Surg Social Fam HX - Past Medical History Medical history: cancer, COPD, coronary artery disease, diabetes, glaucoma, hyperlipidemia, hypertension, myocardial infarction, peripheral artery disease, other Additional medical history: ANEMIA, SLEEP APNEA, CPAP,SKIN CANCER Psychiatric history: no psych history - Past Surgical History Surgical History: angioplasty/stent, other Additional surgical history: RECTAL SURGERY, KNEE SURGERY, CATARACT REMOVAL, CARDIAC STENT, LUNG BIOPSY, ANGIOGRAM WITH ANGIOPLASTY OF LEFT FEMORAL ARTERAY, SKIN CANCER REMOVED - Social History Smoking Status: Former smoker Smokeless Tobacco Status: No Alcohol use: rarely Drug use: none - Family History Mother Living Status: Age at : 99 Hx Family Cardiac Disorders: No Hx Family Respiratory Disorders: No Hx Family Cancer: No Hx Family GI Disorders: No Hx Family Endocrine Disorder: No Hx Family Neuromuscular Disorders: No Hx Family Neurologic Disorders: No Hx Family HEENT Disorders: No Hx Family Autoimmune Disorders: No Father Adopted: No Family Member Ethnicity: Non- Living Status: Age at : 84 Hx Family Cardiac Disorders: Yes Hx Family Respiratory Disorders: No Hx Family Cancer: No Hx Family GI Disorders: No Hx Family Endocrine Disorder: No Hx Family Neuromuscular Disorders: No Hx Family Neurologic Disorders: No Hx Family HEENT Disorders: No Hx Family Autoimmune Disorders: No Medications and Allergies Metformin HCl [Fortamet] 1,000 mg PO BID 02/03/15 [History] Cyclosporine [Restasis] 1 drop BOTH EYES BID 07/10/15 [History] Fluticasone Propionate Nasal [Flonase] 50 mcg NS BID 07/10/15 [History] Furosemide [Lasix] 20 mg PO DAILY PRN 09/06/16 [History] Gabapentin [Neurontin] 100 mg PO HS PRN 09/06/16 [History] Ipratropium/Albuterol Neb [Duoneb] 3 ml IH Q6HR 09/06/16 [History] Roflumilast [Daliresp] 500 mcg PO DAILY 07/22/17 [History] Albuterol Sulfate [Proair Respiclick] 90 mcg IH Q4H PRN 10/23/17 [History] Aspirin [Lo-Dose Aspirin EC] 81 mg PO DAILY 10/23/17 [History] Clopidogrel Bisulfate [Plavix] 75 mg PO DAILY #30 tablet 10/23/17 [Rx] Exenatide Microspheres [Bydureon] 2 mg SQ QWEEK 10/23/17 [History] Tamsulosin [Flomax] 0.4 mg PO DAILY 10/23/17 [History] predniSONE [PredniSONE] 10 mg PO DAILY 10/23/17 [History] Alphagan 1 drop BOTH EYES TID 11/28/17 [History] Calcium 600-D3 Plus Caplet 1,200 mg PO DAILY 11/28/17 [History] Finasteride [Proscar] 5 mg PO DAILY 11/28/17 [History] Fluticasone/Salmeterol [Advair Hfa 230-21 Mcg Inhaler] 2 puff IH BID 11/28/17 [ History] Latanoprost [Xalatan] 1 drop BOTH EYES HS 11/28/17 [History] Latanoprost [Xalatan] 1 drop OP HS 11/28/17 [History] Nebivolol HCl [Bystolic] 2.5 mg PO DAILY 11/28/17 [History] Ramipril [Altace] 5 mg PO DAILY 11/28/17 [History] Ramipril [Altace] 5 mg PO DAILY 11/28/17 [History] glipiZIDE [Glipizide] 10 mg PO DAILY 11/28/17 [History] 3 Allergy/AdvReac Type Severity Reaction Status Date / Time metoprolol Allergy Hypotension Verified 10/23/17 09:18 [id number] Reductase Allergy See Verified 07/22/17 10:14 Inhibitor Comments [Statins] glimepiride [From Amaryl] AdvReac Numbness Verified 10/23/17 09:18 glipizide [From Glucotrol] AdvReac See Verified 10/23/17 09:18 Comments levofloxacin [From Levaquin] AdvReac See Verified 10/23/17 09:18 Comments sitagliptin [From Januvia] AdvReac See Verified 10/23/17 09:18 Comments All Systems: The remainder of the systems were reviewed and are negative Physical Examination Vital Signs: Vital Signs, Last 4 Hours Temp Pulse Resp BP Pulse Ox 11/30/17 16:00 98.3 F 86 17 113/81 95 General appearance: other (Appears sick, but not in any acute distress) ENT: oropharynx moist Mallampati (class): 2 Neck: supple Effort: normal Auscultation: bilateral: diminished breath sounds Percussion: bilateral: not dull Cardiovascular: irregular rhythm Gastrointestinal: normoactive bowel sounds, non-distended Extremities: no edema normal mental status, non-focal exam mood appropriate Results - Laboratory Findings CBC and BMP: 11/30/17 05:45 11/30/17 05:45 ABG ABG pH 7.39 pH Units (7.32-7.45) 11/29/17 13:04 ABG pCO2 23 mmHg (35-45) L 11/29/17 13:04 ABG pO2 68 mmHg (85-104) L 11/29/17 13:04 ABG O2 Saturation 94 % (95-98) L 11/29/17 13:04 Abnormal lab findings: Abnormal lab results WBC 15.6 K/mcL (4.3-11.1) H D 11/30/17 05:45 RBC 4.17 M/mcL (4.19-5.50) L 11/30/17 05:45 Hgb 11.4 g/dL (12.9-16.9) L 11/30/17 05:45 Hct 37.0 % (37.5-50.1) L 11/30/17 05:45 MCH 27.3 pg (28.0-33.3) L 11/30/17 05:45 MCHC 30.8 g/dL (31.6-35.5) L 11/30/17 05:45 RDW 14.8 % (11.5-14.5) H 11/30/17 05:45 Neutrophils # 14.6 K/mcL (1.6-8.9) H 11/30/17 05:45 Lymphocytes # 0.4 K/mcL (0.6-4.6) L 11/30/17 05:45 Nucleated RBCs/100 WBC 0.2 /100 WBC (0) H 11/30/17 05:45 ABG pCO2 23 mmHg (35-45) L 11/29/17 13:04 ABG pO2 68 mmHg (85-104) L 11/29/17 13:04 ABG HCO3 14 mEq/L (21-27) L 11/29/17 13:04 ABG Total CO2 15 mEq/L (20-26) L 11/29/17 13:04 ABG O2 Saturation 94 % (95-98) L 11/29/17 13:04 ABG Base Excess -10 mEq/L (-2 to 3) L 11/29/17 13:04 VBG pH 7.30 pH Units (7.32-7.42) L 11/28/17 12:09 VBG pCO2 39 mmHg (41-51) L 11/28/17 12:09 VBG pO2 53 mmHg (25-50) H 11/28/17 12:09 VBG HCO3 19 mEq/L (21-27) L 11/28/17 12:09 Chloride 108 mEq/L (98-107) H 11/30/17 05:45 Carbon Dioxide 17 mEq/L (23-29) L 11/30/17 05:45 BUN 30 mg/dL (8-23) H 11/30/17 05:45 BUN/Creatinine Ratio 30 (6-26) H 11/30/17 05:45 Glucose 245 mg/dL (70-105) H 11/30/17 05:45 POC Glucose 247 mg/dL (70-99) H 11/29/17 19:28 Lactic Acid 4.0 mmol/L (0.5-2.2) H* 11/30/17 14:07 B-Natriuretic Peptide 862 pg/mL (Less than 100) H 11/28/17 11:02 Ur Specific [place] > 1.030 (1.010-1.025) H 11/28/17 23:20 Urine Glucose (UA) >=1000 mg/dL (Normal) H 11/28/17 23:20 Urine Ketones Trace mg/dL (Negative) H 11/28/17 23:20 - Microbiology Findings Microbiology Findings: Microbiology, Last 48 Hours 11/28/17 23:20 Urine Culture - Final Urine,Clean Catch No growth. 11/28/17 23:20 Streptococcus pneumoniae Antigen (M - Final Urine,Clean Catch 11/28/17 23:20 Legionella Antigen - Final Urine,Clean Catch - Diagnostic Findings CT scan - chest: report reviewed, image reviewed - Clinical Findings Intake & Output: Intake & Output 11/30/17 11/30/17 11/30/17 07:59 15:59 23:59 Intake Total 100 / 100 860 / 860 Output Total 250 / 250 600 / 600 0 / 0 Balance -150 / -150 260 / 260 0 / 0 Weight 76.5 kg Consult Discharge Plan - Plan Referrals: Alfonso Shane MD [Primary Care Provider] -
[2017-11-30] MEDS: Latanoprost 2.5 ML BOTTLE BOTH EYES SCH (20:46)
[2017-11-30] MEDS: Lacri-Lube 3.5 GM TUBE BOTH EYES SCH (20:47)
[2017-12-01] MEDS: Ipratropium/Albuterol Neb 3 ML IH SCH ×4 (05:04→22:25)
[2017-12-01 05:08] LABS: Eosinophils % 0.2 %; Hematocrit 32.4 % (37.5-50.1); Hemoglobin 10.1 g/dL (12.9-16.9); Immature Granulocytes % 0.6 % (0-4); Lymphocytes % 8.1 %; Mean Corpuscular HGB Conc 31.2 g/dL (31.6-35.5); Mean Corpuscular Hemoglobin 27.3 pg (28.0-33.3); Mean Corpuscular Volume 87.6 fL (83.0-100.0); Monocytes # 1.3 K/mcL (0.0-1.3); Monocytes % 10.6 %; Neutrophils # 9.6 K/mcL (1.6-8.9); Platelet Count 233 K/mcL (140-400); Red Cell Distribution Width 14.8 % (11.5-14.5); Segmented Neutrophils % 80.5 %
[2017-12-01 05:32] LABS: BUN/Creatinine Ratio 35 (6-26); Blood Urea Nitrogen 29 mg/dL (8-23); Calcium 8.9 mg/dL (8.6-10.3); Carbon Dioxide 19 mEq/L (23-29); Chloride 112 mEq/L (98-107); Glucose 117 mg/dL (70-105); Osmolality,Calculated 299 (280-300); Potassium 3.7 mEq/L (3.5-5.1); Sodium 141 mEq/L (136-145); eGFR For African Americans > 60 (> 60); eGFR For Non-African Americans > 60 (> 60)
[2017-12-01] MEDS: *HR* Enoxaparin 40 MG/0.4 ML SYRINGE SQ SCH (05:32)
[2017-12-01 08:32] LABS: Mycoplasma pneumoniae IgG 0.49 U/L (<=0.09)
[2017-12-01] MEDS ORDERED: levoFLOXacin 500 MG TABLET PO SCH (09:00)
[2017-12-01] MEDS: predniSONE 20 MG TABLET PO SCH (09:13)
[2017-12-01] MEDS: levoFLOXacin 750 MG TABLET PO SCH (09:14)
[2017-12-01] MEDS: Insulin LISPRO 300 UNITS/3 ML VIAL SQ SCH ×4 (09:14→22:01)
[2017-12-01] MEDS: Furosemide 40 MG/4 ML VIAL IVP SCH (09:14)
[2017-12-01] MEDS: Finasteride 5 MG TABLET PO SCH (09:14)
[2017-12-01] MEDS: Aspirin Enteric Coated 81 MG Tablet PO SCH (09:14)
[2017-12-01] MEDS: Fluticasone Propionate Nasal 50 MCG/SPRAY BOTTLE NS SCH ×2 (09:15→22:00)
[2017-12-01] MEDS: DALIRESP 500 MCG PO SCH (09:16)
[2017-12-01] MEDS: Budesonide/Formoterol 160/4.5 MDI IH SCH ×2 (10:44→22:25)
--- NOTE | 2017-12-01 11:17 | Internal Med Progress Note ---
<Keisha Vazquez - Last Filed: 12/01/17 15:30> Date of Encounter: 12/01/17 Time of Encounter: 11:15 - Assessment and plan (1) COPD (chronic obstructive pulmonary disease) Current Visit: Yes Status: Acute Assessment and plan: Patient with chronic resp failure on Home O2, and chronic steroid therapy who presented with SOB and lactic acidosis Treated with solumedrol, levaquin and duonebs Pulmonology consulted per patient request, recommend pulmonary rehab as an outpatient. Levaquin Day 4 Plan: Continue duonebs Continue oral levaquin 1 more day, stop after 12/02 dose Continue oral prednisone 40mg daily, will discharge at 20mg daily with pulm f/u in 1 week Keep SPO2 around 90% and wean oxygen to this goal Pulmonary rehab as outpatient Qualifiers: COPD type: COPD with acute exacerbation Qualified Code(s): J44.1 - Chronic obstructive pulmonary disease with (acute) exacerbation (2) Diabetes Current Visit: Yes Status: Chronic Assessment and plan: Pt on metformin and glipizide at home Fasting BS today 117, has been elevated. Anticipate elevated BS secondary to steroids. Plan: ISS ac/hs Qualifiers: Diabetes mellitus type: type 2 Diabetes mellitus termination clerk insulin use: without termination clerk use Diabetes mellitus complication status: with circulatory complication Diabetes mellitus complication detail: with other circulatory complications Qualified Code(s): E11.59 - Type 2 diabetes mellitus with other circulatory complications (3) History of coronary artery disease Current Visit: Yes Status: Chronic Assessment and plan: continue cardiac med. s/p stent 1994 (4) BPH (benign prostatic hyperplasia) Current Visit: Yes Status: Chronic Assessment and plan: continue meds Qualifiers: Lower urinary tract symptom presence: symptoms absent Qualified Code(s): N40.0 - Benign prostatic hyperplasia without lower urinary tract symptoms (5) PAD (peripheral artery disease) Current Visit: Yes Status: Chronic Assessment and plan: continue home meds (6) Elevated lactic acid level Current Visit: Yes Status: Resolved Assessment and plan: Admitting lactate 5.8-6.8 resolved, 1.5 12/01 (7) MEGAN (obstructive sleep apnea) Current Visit: Yes Status: Chronic Assessment and plan: CPAP at bedtime (8) CHF (congestive heart failure) Current Visit: Yes Status: Acute Assessment and plan: ECHO 6/17/18: LVEF 65%, Indetermintae diastolic function, mild LVH, moderate dilated LV, Severe Pulm HTN, Septal flattening in systole and diastole indicating pressure and volume overload Pt has been on lasix IV 40mg daily 11/30 UOP 850mL, balance +350 with 650 cc UOP this AM Pt requesting decreased lasix dosing Plan: Continue strict I/Os Fluid restriction diet Decrease lasix to 20mg IV daily Qualifiers: Heart failure type: diastolic Heart failure chronicity: acute on chronic Qualified Code(s): I50.33 - Acute on chronic diastolic (congestive) heart failure - Time Spent With Patient Total time spent is greater than 50% in coordination of care (as documented) at patient's floor/unit and/or counseling patient: - Subjective Interval history: Pt seen and examined, sitting up in the chair at bedside. States that he is feeling the same as yesterday in terms of his SOB. He requests a lower dose of lasix as he is urinating very frequently after administration. He thinks that he needs another night in the hospital before he will be ready to go home. - Constitutional Vitals: Temp Pulse Resp BP Pulse Ox 97.9 F 85 16 101/74 93 12/01/17 07:59 12/01/17 07:59 12/01/17 10:47 12/01/17 07:59 12/01/17 10:47 General appearance: Present: cooperative, A&O X 3, pleasant, no acute distress, answers questions appropriately - Head Head exam: Present: atraumatic, normocephalic - Eye Eye exam: Present: PERRL, conjuntiva pink, sclera anicteric Pupils: Present: PERRL - Neck Neck exam general surgery: Present: supple, trachea midline. Absent: lymphadenopathy - Respiratory Respiratory exam: Present: decreased breath sounds, rales. Absent: respiratory distress, rhonchi, wheezes, tachypnea - Cardiovascular Cardiovascular exam: Present: RRR, +S1, +S2. Absent: diastolic murmur, gallop, rubs, systolic murmur - GI/Abdominal GI/Abdominal exam: Present: normal bowel sounds, soft, no peritoneal signs. Absent: distended, tenderness - Extremities Exam Extremities exam: Present: normal capillary refill, pedal edema (trace), radial pulses palpable and symmetrical. Absent: tenderness - Neurological Exam Neurological exam: Present: alert, oriented X3, no focal deficits. Absent: facial droop, speech deficit - Expanded Neurological Exam Neurological exam expanded: Present: tremor - Psychiatric Psychiatric exam: Present: normal affect, normal mood - Skin Skin exam: Present: dry, intact Additional comments: eccymosis of b/l forearms Internal Medicine: Result - Labs CBC & Chem 7: 12/01/17 04:51 12/01/17 04:51 Labs: Short CBC 12/01/17 Range/Units 04:51 WBC 11.9 H (4.3-11.1) K/mcL Hgb 10.1 L (12.9-16.9) g/dL Hct 32.4 L (37.5-50.1) % Plt Count 233 (140-400) K/mcL Neutrophils # 9.6 H (1.6-8.9) K/mcL BMP 12/01/17 04:51 Sodium 141 Potassium 3.7 Chloride 112 H Carbon Dioxide 19 L BUN 29 H Creatinine 0.82 Glucose 117 H Calcium 8.9 - ABG Interpretation ABG results: ABG ABG pH 7.39 pH Units (7.32-7.45) 11/29/17 13:04 ABG pCO2 23 mmHg (35-45) L 11/29/17 13:04 ABG pO2 68 mmHg (85-104) L 11/29/17 13:04 ABG O2 Saturation 94 % (95-98) L 11/29/17 13:04 Consult Discharge Plan - Plan Referrals: Alfonso Shane MD [Primary Care Provider] - <Jermaine Hernandez - Last Filed: 12/01/17 18:59> Date of Encounter: 12/01/17 - Assessment and plan (1) Diabetes Current Visit: Yes Status: Chronic Qualifiers: Diabetes mellitus type: type 2 Diabetes mellitus termination clerk insulin use: without detention use Diabetes mellitus complication status: with circulatory complication Diabetes mellitus complication detail: with other circulatory complications Qualified Code(s): E11.59 - Type 2 diabetes mellitus with other circulatory complications (2) History of coronary artery disease Current Visit: Yes Status: Chronic (3) BPH (benign prostatic hyperplasia) Current Visit: Yes Status: Chronic Qualifiers: Lower urinary tract symptom presence: symptoms absent Qualified Code(s): N40.0 - Benign prostatic hyperplasia without lower urinary tract symptoms (4) PAD (peripheral artery disease) Current Visit: Yes Status: Chronic (5) COPD (chronic obstructive pulmonary disease) Current Visit: Yes Status: Acute Qualifiers: COPD type: COPD with acute exacerbation Qualified Code(s): J44.1 - Chronic obstructive pulmonary disease with (acute) exacerbation (6) Elevated lactic acid level Current Visit: Yes Status: Resolved (7) MEGAN (obstructive sleep apnea) Current Visit: Yes Status: Chronic (8) CHF (congestive heart failure) Current Visit: Yes Status: Acute Qualifiers: Heart failure type: diastolic Heart failure chronicity: acute on chronic Qualified Code(s): I50.33 - Acute on chronic diastolic (congestive) heart failure - Time Spent With Patient Total time spent is greater than 50% in coordination of care (as documented) at patient's floor/unit and/or counseling patient: - Constitutional Vitals: Temp Pulse Resp BP Pulse Ox 97.8 F 91 16 115/83 92 12/01/17 15:24 12/01/17 15:24 12/01/17 16:03 12/01/17 15:24 12/01/17 16:03 Internal Medicine: Result - Labs CBC & Chem 7: 12/01/17 04:51 12/01/17 04:51 Labs: Short CBC 12/01/17 Range/Units 04:51 WBC 11.9 H (4.3-11.1) K/mcL Hgb 10.1 L (12.9-16.9) g/dL Hct 32.4 L (37.5-50.1) % Plt Count 233 (140-400) K/mcL Neutrophils # 9.6 H (1.6-8.9) K/mcL BMP 12/01/17 04:51 Sodium 141 Potassium 3.7 Chloride 112 H Carbon Dioxide 19 L BUN 29 H Creatinine 0.82 Glucose 117 H Calcium 8.9 - ABG Interpretation ABG results: ABG ABG pH 7.39 pH Units (7.32-7.45) 11/29/17 13:04 ABG pCO2 23 mmHg (35-45) L 11/29/17 13:04 ABG pO2 68 mmHg (85-104) L 11/29/17 13:04 ABG O2 Saturation 94 % (95-98) L 11/29/17 13:04 - Attending Attestation I examined this patient and my medical decision-making was reviewed with the Resident Physician. I agree with the documented findings, disposition and treatment plan as described except to the extent set forth below.
--- NOTE | 2017-12-01 16:58 | Pulmonology Progress Note ---
Date of Encounter: 12/01/17 Time of Encounter: 16:00 Assessment and Plan (1) Acute exacerbation of chronic obstructive airways disease Current Visit: No Status: Suspected There is no significant changes since yesterday and I have explained to the patient due to his underlying lung disease recovery might be slow. Discussed with primary team and to his discharge home and to continue his long-term steroid use and will taper it when he follows up as outpatient. Subjective Principal diagnosis: COPD exacerbation Interval history: Patient stated that he has not felt significant changes since yesterday Objective PUL Vital signs: Last Vital Signs Temp 97.8 F 12/01/17 15:24 Pulse 91 12/01/17 15:24 Resp 16 12/01/17 16:03 BP 115/83 12/01/17 15:24 Pulse Ox 92 12/01/17 16:03 General appearance: no acute distress Eyes: nonicteric Mallampati (class): 3 Neck: supple Effort: normal Auscultation: bilateral: diminished breath sounds Percussion: bilateral: not dull Cardiovascular: regular rate and rhythm Gastrointestinal: normoactive bowel sounds Extremities: no cyanosis normal mental status, non-focal exam Results - Laboratory Findings CBC and BMP: 12/01/17 04:51 12/01/17 04:51 ABG ABG pH 7.39 pH Units (7.32-7.45) 11/29/17 13:04 ABG pCO2 23 mmHg (35-45) L 11/29/17 13:04 ABG pO2 68 mmHg (85-104) L 11/29/17 13:04 ABG O2 Saturation 94 % (95-98) L 11/29/17 13:04 Abnormal lab findings: Abnormal lab results WBC 11.9 K/mcL (4.3-11.1) H 12/01/17 04:51 RBC 3.70 M/mcL (4.19-5.50) L 12/01/17 04:51 Hgb 10.1 g/dL (12.9-16.9) L 12/01/17 04:51 Hct 32.4 % (37.5-50.1) L 12/01/17 04:51 MCH 27.3 pg (28.0-33.3) L 12/01/17 04:51 MCHC 31.2 g/dL (31.6-35.5) L 12/01/17 04:51 RDW 14.8 % (11.5-14.5) H 12/01/17 04:51 Neutrophils # 9.6 K/mcL (1.6-8.9) H 12/01/17 04:51 Nucleated RBCs/100 WBC 0.2 /100 WBC (0) H 11/30/17 05:45 ABG pCO2 23 mmHg (35-45) L 11/29/17 13:04 ABG pO2 68 mmHg (85-104) L 11/29/17 13:04 ABG HCO3 14 mEq/L (21-27) L 11/29/17 13:04 ABG Total CO2 15 mEq/L (20-26) L 11/29/17 13:04 ABG O2 Saturation 94 % (95-98) L 11/29/17 13:04 ABG Base Excess -10 mEq/L (-2 to 3) L 11/29/17 13:04 VBG pH 7.30 pH Units (7.32-7.42) L 11/28/17 12:09 VBG pCO2 39 mmHg (41-51) L 11/28/17 12:09 VBG pO2 53 mmHg (25-50) H 11/28/17 12:09 VBG HCO3 19 mEq/L (21-27) L 11/28/17 12:09 Chloride 112 mEq/L (98-107) H 12/01/17 04:51 Carbon Dioxide 19 mEq/L (23-29) L 12/01/17 04:51 BUN 29 mg/dL (8-23) H 12/01/17 04:51 BUN/Creatinine Ratio 35 (6-26) H 12/01/17 04:51 Glucose 117 mg/dL (70-105) H 12/01/17 04:51 POC Glucose 246 mg/dL (70-99) H 12/01/17 16:35 B-Natriuretic Peptide 862 pg/mL (Less than 100) H 11/28/17 11:02 Ur Specific [place] > 1.030 (1.010-1.025) H 11/28/17 23:20 Urine Glucose (UA) >=1000 mg/dL (Normal) H 11/28/17 23:20 Urine Ketones Trace mg/dL (Negative) H 11/28/17 23:20 Mycoplasma pneumon IgG 0.49 U/L (<=0.09) H 11/28/17 17:44 - Microbiology Findings Microbiology Findings: Microbiology, Last 48 Hours 11/28/17 23:20 Urine Culture - Final Urine,Clean Catch No growth. - Clinical Findings Intake & Output: Intake & Output 12/01/17 12/01/17 12/01/17 07:59 15:59 23:59 Intake Total 0 / 0 720 / 720 Output Total 650 / 650 Balance -650 / -650 720 / 720 Weight 76.5 kg Consult Discharge Plan - Plan Referrals: Alfonso Shane MD [Primary Care Provider] -
[2017-12-01] MEDS: Latanoprost 2.5 ML BOTTLE BOTH EYES SCH (22:00)
[2017-12-01] MEDS: Lacri-Lube 3.5 GM TUBE BOTH EYES SCH (22:00)
[2017-12-02] MEDS: Ipratropium/Albuterol Neb 3 ML IH SCH ×2 (04:20→10:42)
[2017-12-02 05:00] LABS: Basophils % 0.1 %; Hematocrit 31.6 % (37.5-50.1); Hemoglobin 9.7 g/dL (12.9-16.9); Immature Granulocytes % 1.1 % (0-4); Immature Platelets 3.1 % (1.1-6.1); Lymphocytes # 0.8 K/mcL (0.6-4.6); Mean Corpuscular HGB Conc 30.7 g/dL (31.6-35.5); Mean Corpuscular Hemoglobin 26.6 pg (28.0-33.3); Mean Corpuscular Volume 86.8 fL (83.0-100.0); Mean Platelet Volume 10.8 fL (9.4-12.4); Monocytes % 11.1 %; Neutrophils # 7.1 K/mcL (1.6-8.9); Platelet Count 250 K/mcL (140-400); Red Blood Count 3.64 M/mcL (4.19-5.50); Red Cell Distribution Width 14.7 % (11.5-14.5); Segmented Neutrophils % 78.7 %
[2017-12-02 05:19] LABS: BUN/Creatinine Ratio 34 (6-26); Blood Urea Nitrogen 24 mg/dL (8-23); Calcium 8.7 mg/dL (8.6-10.3); Carbon Dioxide 23 mEq/L (23-29); Chloride 110 mEq/L (98-107); Glucose 180 mg/dL (70-105); Osmolality,Calculated 299 (280-300); Potassium 3.8 mEq/L (3.5-5.1); Sodium 140 mEq/L (136-145); eGFR For African Americans > 60 (> 60); eGFR For Non-African Americans > 60 (> 60)
[2017-12-02] MEDS: *HR* Enoxaparin 40 MG/0.4 ML SYRINGE SQ SCH (05:38)
[2017-12-02 05:55] LABS: Platelet Estimate Normal (Normal)
[2017-12-02 05:56] LABS: Anisocytosis 1+ (Not Present); Poikilocytosis 1+ (Not Present)
[2017-12-02 08:13] VITALS: BP 113/83
--- NOTE | 2017-12-02 08:13 | Discharge Summary ---
<Keisha Vazquez - Last Filed: 12/02/17 08:07> - NOTES TO OUTPATIENT PROVIDER Notes to Outpatient Provider: Patient discharged on increased prednisone dose of 20mg daily until seen by Pulmonology in follow up. Patient scheduled for pulmonary rehab. 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 Diabetes mellitus complication status: with circulatory complication Diabetes mellitus complication detail: with other circulatory complications Qualified Code(s): E11.59 - Type 2 diabetes mellitus with other circulatory complications (3) History of coronary artery disease Priority: Secondary Status: Chronic (4) BPH (benign prostatic hyperplasia) Priority: Secondary Status: Chronic Qualifiers: Lower urinary tract symptom presence: symptoms absent Qualified Code(s): N40.0 - Benign prostatic hyperplasia without lower urinary tract symptoms (5) PAD (peripheral artery disease) Priority: Secondary Status: Chronic (6) Elevated lactic acid level Priority: Secondary Status: Resolved (7) MEGAN (obstructive sleep apnea) Priority: Secondary Status: Chronic (8) CHF (congestive heart failure) Priority: Primary Status: Acute Qualifiers: Heart failure type: diastolic Heart failure chronicity: acute on chronic Qualified Code(s): I50.33 - Acute on chronic diastolic (congestive) heart failure Hospital course: Mr. Starks is a 72 year old male who presented to [facility] ED with acute 3 days history of worsening shortness of breath. He was admitted for suspected COPD exacerbation and evaluation of lactic acidosis. CTA was negative for PE. He was treated with 5 days of levaquin, solumedrol that was titrated down to 20mg daily at discharge and duonebs. An ECHO was performed demonstrating LVEF 65%, Indetermintae diastolic function, mild LVH, moderate dilated LV, Severe Pulm HTN , Septal flattening in systole and diastole indicating pressure and volume overload. His lasix was incraesed to 40mg daily and he had improvement of his fluid overload. Appears euvolemic on exam at discharge. The patient's repiratory status improved during his stay, and lactic acidosis resolved. The patient was evaluated by Pulmonology who requested increasing his home dose of prednisone to 20mg daily until he is seen in follow up by them. He is also will be scheduled with pulmonary rehab at discharge. Patient states that his breathing is at his baseline on day of discharge and he is euovolemic on exam. Pt will be discharge in stable condition with close follow up. - Time Spent with Patient Total time spent providing and/or coordinating discharge services: - Discharge Medications Prescriptions: predniSONE [PredniSONE] 20 mg PO DAILY 30 Days #30 tablet Home Medications: Metformin HCl [Fortamet] 1,000 mg PO BID 02/03/15 [History] Cyclosporine [Restasis] 1 drop BOTH EYES BID 07/10/15 [History] Fluticasone Propionate Nasal [Flonase] 50 mcg NS BID 07/10/15 [History] Furosemide [Lasix] 20 mg PO DAILY PRN 09/06/16 [History] Gabapentin [Neurontin] 100 mg PO HS PRN 09/06/16 [History] Ipratropium/Albuterol Neb [Duoneb] 3 ml IH Q6HR 09/06/16 [History] Roflumilast [Daliresp] 500 mcg PO DAILY 07/22/17 [History] Albuterol Sulfate [Proair Respiclick] 90 mcg IH Q4H PRN 10/23/17 [History] Aspirin [Lo-Dose Aspirin EC] 81 mg PO DAILY 10/23/17 [History] Clopidogrel Bisulfate [Plavix] 75 mg PO DAILY #30 tablet 10/23/17 [Rx] Exenatide Microspheres [Bydureon] 2 mg SQ QWEEK 10/23/17 [History] Tamsulosin [Flomax] 0.4 mg PO DAILY 10/23/17 [History] Alphagan 1 drop BOTH EYES TID 11/28/17 [History] Calcium 600-D3 Plus Caplet 1,200 mg PO DAILY 11/28/17 [History] Finasteride [Proscar] 5 mg PO DAILY 11/28/17 [History] Fluticasone/Salmeterol [Advair Hfa 230-21 Mcg Inhaler] 2 puff IH BID 11/28/17 [ History] Latanoprost [Xalatan] 1 drop BOTH EYES HS 11/28/17 [History] Latanoprost [Xalatan] 1 drop OP HS 11/28/17 [History] Nebivolol HCl [Bystolic] 2.5 mg PO DAILY 11/28/17 [History] Ramipril [Altace] 5 mg PO DAILY 11/28/17 [History] Ramipril [Altace] 5 mg PO DAILY 11/28/17 [History] glipiZIDE [Glipizide] 10 mg PO DAILY 11/28/17 [History] Brimonidine 0.2% [Alphagan] 1 drop BOTH EYES TID bottle 12/02/17 [Rx] predniSONE [PredniSONE] 20 mg PO DAILY 30 Days #30 tablet 12/02/17 [Rx] Allergies/Adverse Reactions: 3 Allergy/AdvReac Type Severity Reaction Status Date / Time metoprolol Allergy Hypotension Verified 10/23/17 09:18 Jjkvocm-Oxo-Jlu Reductase Allergy See Verified 07/22/17 10:14 Inhibitor Comments [Statins] glimepiride [From Amaryl] AdvReac Numbness Verified 10/23/17 09:18 glipizide [From Glucotrol] AdvReac See Verified 10/23/17 09:18 Comments levofloxacin [From Levaquin] AdvReac See Verified 10/23/17 09:18 Comments sitagliptin [From Januvia] AdvReac See Verified 10/23/17 09:18 Comments Date of admission: 11/28/17 18:36 Primary care physician: Alfonso Shane MD Consults: 11/30/17 14:35 Consult to Pulmonology [CONS] Routine Consulting Provider: [facility] [place] Reason for Consult: COPDE Call Completed: Yes Discharging clinician: Keisha Vazquez Anticipated date of discharge: 12/02/17 - Constitutional Vitals: Temp Pulse Resp BP Pulse Ox 97.9 F 108 16 127/101 91 12/02/17 07:09 12/02/17 07:09 12/02/17 07:09 12/02/17 07:09 12/02/17 07:09 General appearance: Present: cooperative, A&O X 3, pleasant, no acute distress, answers questions appropriately - Head Head exam: Present: atraumatic, normocephalic - Eye Eye exam: Present: PERRL, conjuntiva pink, sclera anicteric Pupils: Present: PERRL - Neck Neck exam general surgery: Present: supple, trachea midline. Absent: lymphadenopathy - Respiratory Respiratory exam: Present: decreased breath sounds, rales (b/l bases). Absent: accessory muscle use, respiratory distress, rhonchi, stridor, wheezes, tachypnea - Cardiovascular Cardiovascular exam: Present: RRR, +S1, +S2. Absent: diastolic murmur, gallop, rubs, systolic murmur - GI/Abdominal GI/Abdominal exam: Present: normal bowel sounds, soft, no peritoneal signs. Absent: distended, tenderness - Extremities Exam Extremities exam: Present: normal capillary refill, pedal edema (trace), radial pulses palpable and symmetrical Additional comments: eccymosis on right forearm - Neurological Exam Neurological exam: Present: alert, CN II-XII intact, oriented X3, no focal deficits. Absent: facial droop, speech deficit - Psychiatric Psychiatric exam: Present: normal affect, normal mood - Skin Skin exam: Present: dry, intact - Patient Status Disposition: Home, Self-Care Condition: Good Functional capacity at discharge: independent ambulation - Ambulatory Orders Ambulatory Orders: Pulmonary Rehab w COPD [CRS] Time Frame: 1 Week, Facility: [facility], Location: [facility] Critical Care - Discharge Instructions Instructions: Prednisone (By mouth), Heart Failure (DC), Diabetes Mellitus Type 2 in Adults (DC), Peripheral Vascular Disorders (DC), Chronic Obstructive Pulmonary Disease (DC) Follow Up With: Alfonso Shane MD [Primary Care Provider] - 12/08/17 1:15 pm () Lorna Myles MD [Partnered Physician] - 12/24/17 1:15 pm Additional Instructions: Follow up with your PCP in 3-5 days. Follow up with Dr. Myles in 1-2 weeks. Your prednisone was increased to 20mg daily, a new prescription was written. Stay on this dose until you see Dr. Myles. - Diet and Activity Activity: increase activity as tolerated Diet: advance to your usual diet <Jermaine Hernandez - Last Filed: 12/02/17 18:24> Date of Encounter: 12/02/17 - Discharge Diagnosis (1) Diabetes Status: Chronic Qualifiers: Diabetes mellitus type: type 2 Diabetes mellitus care home insulin use: without care home use Diabetes mellitus complication status: with circulatory complication Diabetes mellitus complication detail: with other circulatory complications Qualified Code(s): E11.59 - Type 2 diabetes mellitus with other circulatory complications (2) History of coronary artery disease Status: Chronic (3) BPH (benign prostatic hyperplasia) Status: Chronic Qualifiers: Lower urinary tract symptom presence: symptoms absent Qualified Code(s): N40.0 - Benign prostatic hyperplasia without lower urinary tract symptoms (4) PAD (peripheral artery disease) Status: Chronic (5) COPD (chronic obstructive pulmonary disease) Status: Acute Qualifiers: COPD type: COPD with acute exacerbation Qualified Code(s): J44.1 - Chronic obstructive pulmonary disease with (acute) exacerbation (6) Elevated lactic acid level Status: Resolved (7) MEGAN (obstructive sleep apnea) Status: Chronic (8) CHF (congestive heart failure) Status: Acute Qualifiers: Heart failure type: diastolic Heart failure chronicity: acute on chronic Qualified Code(s): I50.33 - Acute on chronic diastolic (congestive) heart failure Hospital course: Mr. Starks is a 72 year old male - Time Spent with Patient Total time spent providing and/or coordinating discharge services: Date of admission: 11/28/17 18:36 Primary care physician: Alfonso Shane MD Consults: 11/30/17 14:35 Consult to Pulmonology [CONS] Routine Consulting Provider: [facility] [place] Reason for Consult: COPDE Call Completed: Yes - Constitutional Vitals: Temp Pulse Resp BP Pulse Ox 97.9 F 96 16 113/83 93 12/02/17 07:09 12/02/17 08:13 12/02/17 08:13 12/02/17 08:13 12/02/17 10:00 - Attending Attestation I examined this patient and my medical decision-making was reviewed with the Resident Physician. I agree with the documented findings, disposition and treatment plan as described except to the extent set forth below.
[2017-12-02] MEDS: Finasteride 5 MG TABLET PO SCH (08:25)
[2017-12-02] MEDS: Aspirin Enteric Coated 81 MG Tablet PO SCH (08:25)
[2017-12-02] MEDS: levoFLOXacin 750 MG TABLET PO SCH (08:25)
[2017-12-02] MEDS: predniSONE 20 MG TABLET PO SCH (08:25)
[2017-12-02] MEDS: Insulin LISPRO 300 UNITS/3 ML VIAL SQ SCH (08:26)
[2017-12-02] MEDS: Fluticasone Propionate Nasal 50 MCG/SPRAY BOTTLE NS SCH (08:26)
[2017-12-02] MEDS: DALIRESP 500 MCG PO SCH (08:27)
[2017-12-02] MEDS ORDERED: Furosemide 20 MG/2 ML VIAL IVP SCH (09:00)
[2017-12-02] MEDS: Budesonide/Formoterol 160/4.5 MDI IH SCH (10:43)
== END 2017-12-02 11:40 | disposition home or self-care (01) | DRG 190 ==
LOC: EMEROO 10:46 → 2NENU 10:46 → SUATTDRO 18:36
PROVIDERS: ADMIT Internal Medicine Hematology & Oncology; ATTEND Internal Medicine

== ENCOUNTER 2017-12-04 20:09 | Inpatient (IN) ==
[2017-12-04 20:57] LABS: Basophils % 0.1 %; Eosinophils % 0.1 %; Hematocrit 37.9 % (37.5-50.1); Immature Granulocytes % 1.8 % (0-4); Lymphocytes % 9.5 %; Mean Corpuscular HGB Conc 30.9 g/dL (31.6-35.5); Mean Corpuscular Hemoglobin 26.8 pg (28.0-33.3); Mean Corpuscular Volume 86.9 fL (83.0-100.0); Mean Platelet Volume 10.1 fL (9.4-12.4); Monocytes # 0.9 K/mcL (0.0-1.3); Monocytes % 8.3 %; Neutrophils # 8.3 K/mcL (1.6-8.9); Nucleated Red Blood Cells 0.6 /100 WBC (0); Platelet Count 311 K/mcL (140-400); Red Blood Count 4.36 M/mcL (4.19-5.50); Red Cell Distribution Width 14.6 % (11.5-14.5); Segmented Neutrophils % 80.2 %
--- NOTE | 2017-12-04 20:58 | Emergency Department Note ---
Disposition Clinical Impression: Elevated troponin, Elevated lactic acid level, Exertional dyspnea Disposition: Admitted As Inpatient Condition: Fair Referrals: Alfonso Shane MD [Primary Care Provider] - Forms: ED Satisfaction Letter General Adult HPI - General Chief complaint: ED Shortness of Breath/Dyspnea Stated complaint: Edema, Dyspnea Time Seen by Provider: 12/04/17 20:16 Source: patient Limitations: no limitations - History of Present Illness Pain Scale: 0 - Related Data Home Medications Medication Instructions Recorded Confirmed Metformin HCl [Fortamet] 1,000 mg PO BID 02/03/15 12/04/17 Cyclosporine [Restasis] 1 drop BOTH EYES BID 07/10/15 12/04/17 Fluticasone Propionate Nasal 50 mcg NS BID 07/10/15 12/04/17 [Flonase] Furosemide [Lasix] 40 mg PO DAILY PRN 09/06/16 12/04/17 Gabapentin [Neurontin] 100 mg PO HS PRN 09/06/16 12/04/17 Ipratropium/Albuterol Neb [Duoneb] 3 ml IH Q6HR 09/06/16 12/04/17 Roflumilast [Daliresp] 500 mcg PO DAILY 07/22/17 12/04/17 Albuterol Sulfate [Proair 90 mcg IH Q4H PRN 10/23/17 12/04/17 Respiclick] Aspirin [Lo-Dose Aspirin EC] 81 mg PO DAILY 10/23/17 12/04/17 Exenatide Microspheres [Bydureon] 2 mg SQ SA 10/23/17 12/04/17 Tamsulosin [Flomax] 0.4 mg PO BID 10/23/17 12/04/17 Finasteride [Proscar] 5 mg PO DAILY 11/28/17 12/04/17 Fluticasone/Salmeterol [Advair Hfa 2 puff IH BID 11/28/17 12/04/17 230-21 Mcg Inhaler] Latanoprost [Xalatan] 1 drop BOTH EYES HS 11/28/17 12/04/17 Nebivolol HCl [Bystolic] 2.5 mg PO DAILY 11/28/17 12/04/17 Ramipril [Altace] 5 mg PO DAILY 11/28/17 12/04/17 glipiZIDE [Glipizide] 10 mg PO DAILY 11/28/17 12/04/17 Brimonidine 0.2% [Alphagan] 1 drop BOTH EYES BID 12/04/17 12/04/17 Ca/D3/Mag Ox/Zinc/Intensive Care Specialist/Julio C/Bor 2 tab PO DAILY 12/04/17 12/04/17 [Calcium 600-D3 Plus Caplet] Cholecalciferol (Vitamin D3) 1,000 unit PO DAILY 12/04/17 12/04/17 [Vitamin D] Ipratropium [place] 1 spr NS QID PRN 12/04/17 12/04/17 Previous Rx's Medication Instructions Recorded Clopidogrel Bisulfate [Plavix] 75 mg PO DAILY #30 tablet 10/23/17 predniSONE [PredniSONE] 20 mg PO DAILY 30 Days #30 tablet 12/02/17 Allergies Allergy/AdvReac Type Severity Reaction Status Date / Time metoprolol Allergy Hypotension Verified 12/04/17 22:36 Mravfks-Omm-Ibh Reductase Allergy See Verified 12/04/17 22:36 Inhibitor Comments [Statins] glimepiride [From Amaryl] AdvReac Numbness Verified 12/04/17 22:36 glipizide [From Glucotrol] AdvReac See Verified 12/04/17 22:36 Comments levofloxacin [From Levaquin] AdvReac See Verified 12/04/17 22:36 Comments sitagliptin [From Januvia] AdvReac See Verified 12/04/17 22:36 Comments Past Medical History - Past Medical History Medical history: Reports: cancer, COPD, coronary artery disease, diabetes, glaucoma, hyperlipidemia, hypertension, myocardial infarction, peripheral artery disease, other Surgical history: Reports: angioplasty/stent, other Psychiatric history: Reports: no psych history - Social History Smoking Status: Former smoker Smokeless Tobacco Status: No Alcohol use: Reports: rarely Drug use: Reports: none Physical Exam - General Limitations: no limitations General appearance: alert Course Vital Signs Temperature 98.0 F 12/04/17 20:10 Pulse Rate 102 12/04/17 20:10 Respiratory Rate 19 12/04/17 20:10 Blood Pressure 107/51 12/04/17 20:10 O2 Sat by Pulse Oximetry 88 12/04/17 20:10 Temperature 98.0 F 12/04/17 20:10 Pulse Rate 87 12/04/17 22:15 Respiratory Rate 18 12/04/17 22:15 Blood Pressure 122/90 12/04/17 22:15 O2 Sat by Pulse Oximetry 96 12/04/17 22:15 Oxygen Delivery Oxygen Delivery Nasal Cannula Medical Decision Making - Lab Data Result diagrams: 12/04/17 20:42 12/04/17 20:42 Lab Results 12/04/17 12/04/17 12/04/17 Range/Units 20:42 20:42 20:42 WBC 10.3 (4.3-11.1) K/mcL RBC 4.36 (4.19-5.50) M/mcL Hgb 11.7 L D (12.9-16.9) g/dL Hct 37.9 (37.5-50.1) % MCV 86.9 (83.0-100.0) fL MCH 26.8 L (28.0-33.3) pg MCHC 30.9 L (31.6-35.5) g/dL RDW 14.6 H (11.5-14.5) % Plt Count 311 (140-400) K/mcL MPV 10.1 (9.4-12.4) fL Immature Gran % 1.8 (0-4) % Seg Neutrophils % 80.2 % Lymphocytes % 9.5 % Monocytes % 8.3 % Eosinophils % 0.1 % Basophils % 0.1 % Neutrophils # 8.3 (1.6-8.9) K/mcL Lymphocytes # 1.0 (0.6-4.6) K/mcL Monocytes # 0.9 (0.0-1.3) K/mcL Eosinophils # 0.0 (0.0-0.6) K/mcL Basophils # 0.0 (0.0-0.2) K/mcL Nucleated RBCs/100 WBC 0.6 H (0) /100 WBC D-Dimer 335 (0-500) ng/mLFEU Sodium 140 (136-145) mEq/L Potassium 3.8 (3.5-5.1) mEq/L Chloride 104 (98-107) mEq/L Carbon Dioxide 24 (23-29) mEq/L BUN 29 H (8-23) mg/dL Creatinine 1.00 (0.70-1.30) mg/dL Est GFR ( Amer) > 60 (> 60) Est GFR (Non-Af Amer) > 60 (> 60) BUN/Creatinine Ratio 29 H (6-26) Glucose 164 H (70-105) mg/dL Calculated Osmolality 299 (280-300) Lactic Acid (0.5-2.2) mmol/L Calcium 9.2 (8.6-10.3) mg/dL Troponin I 0.04 H* (< 0.04) ng/mL B-Natriuretic Peptide (Less than 100) pg/mL 12/04/17 12/04/17 Range/Units 20:42 20:42 WBC (4.3-11.1) K/mcL RBC (4.19-5.50) M/mcL Hgb (12.9-16.9) g/dL Hct (37.5-50.1) % MCV (83.0-100.0) fL MCH (28.0-33.3) pg MCHC (31.6-35.5) g/dL RDW (11.5-14.5) % Plt Count (140-400) K/mcL MPV (9.4-12.4) fL Immature Gran % (0-4) % Seg Neutrophils % % Lymphocytes % % Monocytes % % Eosinophils % % Basophils % % Neutrophils # (1.6-8.9) K/mcL Lymphocytes # (0.6-4.6) K/mcL Monocytes # (0.0-1.3) K/mcL Eosinophils # (0.0-0.6) K/mcL Basophils # (0.0-0.2) K/mcL Nucleated RBCs/100 WBC (0) /100 WBC D-Dimer (0-500) ng/mLFEU Sodium (136-145) mEq/L Potassium (3.5-5.1) mEq/L Chloride (98-107) mEq/L Carbon Dioxide (23-29) mEq/L BUN (8-23) mg/dL Creatinine (0.70-1.30) mg/dL Est GFR ( Amer) (> 60) Est GFR (Non-Af Amer) (> 60) BUN/Creatinine Ratio (6-26) Glucose (70-105) mg/dL Calculated Osmolality (280-300) Lactic Acid 4.9 H* (0.5-2.2) mmol/L Calcium (8.6-10.3) mg/dL Troponin I (< 0.04) ng/mL B-Natriuretic Peptide 364 H (Less than 100) pg/mL Attestation Statement - Attestation Attestation: I examined this patient and my medical decision-making was reviewed with the Resident Physician. I agree with the documented findings, disposition and treatment plan as described except to the extent set forth below. Patient presents to the ED with a chief complaint of shortness of breath and swelling. He is in increased swelling in his legs today. He had dyspnea on exertion trying to walk to the dinner table so that brought him in. They called his PCP earlier in the day and increased his Lasix and he took 2 additional doses. It has not helped. Patient had a recent admission for COPD and CHF. He was receiving increased dose of Lasix in the hospital that time it was discharged home on 20 mg a day. He is in no distress on examination with clear lungs. He does have 2-3+ pitting edema in his lower extremities. Plan. Cardiac workup and diuresis. Patient with elevated lactate from an unknown source. No fever. No source of infection and is not felt to have infection. Patient given an aspirin for elevated troponin. Admitted to medicine.
[2017-12-04 21:00] LABS: Hemoglobin 11.7 g/dL (12.9-16.9)
[2017-12-04] MEDS ORDERED: Ipratropium/Albuterol Neb 3 ML IH ONE (21:03)
[2017-12-04 21:18] LABS: BUN/Creatinine Ratio 29 (6-26); Blood Urea Nitrogen 29 mg/dL (8-23); Calcium 9.2 mg/dL (8.6-10.3); Carbon Dioxide 24 mEq/L (23-29); Chloride 104 mEq/L (98-107); Glucose 164 mg/dL (70-105); Osmolality,Calculated 299 (280-300); Potassium 3.8 mEq/L (3.5-5.1); Sodium 140 mEq/L (136-145); eGFR For African Americans > 60 (> 60); eGFR For Non-African Americans > 60 (> 60)
--- NOTE | 2017-12-04 21:20 | Emergency Department Note ---
Disposition Clinical Impression: Elevated troponin, Elevated lactic acid level, Exertional dyspnea Disposition: Admitted As Inpatient Condition: Fair Referrals: Alfonso Shane MD [Primary Care Provider] - Forms: ED Satisfaction Letter Time of Disposition: 22:39 General Adult HPI - General Chief complaint: ED Shortness of Breath/Dyspnea Stated complaint: Edema, Dyspnea Time Seen by Provider: 12/04/17 20:16 Source: patient Mode of arrival: ambulatory Limitations: no limitations Nursing Notes Reviewed: Yes Vital Signs Reviewed: Yes - History of Present Illness HPI Narrative: Patient is a 72-year-old male with a past medical history of COPD requiring 4 L nasal cannula, CAD with stents replaced in the , DM, HLD, HTN, PAD presents to the emergency department for evaluation of exertional dyspnea that started today and bilateral lower extremity edema that started over the last 2 days. According to the patient and patient's family history is recently discharged from the hospital in which she was treated for a COPD exacerbation. Upon discharge the patient's oxygen requirements were increasing is placed on 4 L nasal cannula 24 7 at home. The patient states that today he was walking 10 feet and he is becoming dyspneic and had to sit down. States this is not normal for him. The patient states is also had bilateral lower extremity swelling. He states that upon discharge from his last admission that he was fluid overloaded and they were diuresing him prior to discharge. He denies any fevers, chills, productive cough, chest pain, back pain, abdominal pain, nausea , vomiting, diarrhea, urinary symptoms, or calf tenderness. Not currently on any blood thinners, takes aspirin daily. cancer. States she takes breathing treatments 4 times a day. Pain Scale: 0 - Related Data Home Medications Medication Instructions Recorded Confirmed Metformin HCl [Fortamet] 1,000 mg PO BID 02/03/15 12/04/17 Cyclosporine [Restasis] 1 drop BOTH EYES BID 07/10/15 12/04/17 Fluticasone Propionate Nasal 50 mcg NS BID 07/10/15 12/04/17 [Flonase] Furosemide [Lasix] 40 mg PO DAILY PRN 09/06/16 12/04/17 Gabapentin [Neurontin] 100 mg PO HS PRN 09/06/16 12/04/17 Ipratropium/Albuterol Neb [Duoneb] 3 ml IH Q6HR 09/06/16 12/04/17 Roflumilast [Daliresp] 500 mcg PO DAILY 07/22/17 12/04/17 Albuterol Sulfate [Proair 90 mcg IH Q4H PRN 10/23/17 12/04/17 Respiclick] Aspirin [Lo-Dose Aspirin EC] 81 mg PO DAILY 10/23/17 12/04/17 Exenatide Microspheres [Bydureon] 2 mg SQ SA 10/23/17 12/04/17 Tamsulosin [Flomax] 0.4 mg PO BID 10/23/17 12/04/17 Finasteride [Proscar] 5 mg PO DAILY 11/28/17 12/04/17 Fluticasone/Salmeterol [Advair Hfa 2 puff IH BID 11/28/17 12/04/17 230-21 Mcg Inhaler] Latanoprost [Xalatan] 1 drop BOTH EYES HS 11/28/17 12/04/17 Nebivolol HCl [Bystolic] 2.5 mg PO DAILY 11/28/17 12/04/17 Ramipril [Altace] 5 mg PO DAILY 11/28/17 12/04/17 glipiZIDE [Glipizide] 10 mg PO DAILY 11/28/17 12/04/17 Brimonidine 0.2% [Alphagan] 1 drop BOTH EYES BID 12/04/17 12/04/17 Ca/D3/Mag Ox/Zinc/Grinding Machine Operator Automatic/Julio C/Bor 2 tab PO DAILY 12/04/17 12/04/17 [Calcium 600-D3 Plus Caplet] Cholecalciferol (Vitamin D3) 1,000 unit PO DAILY 12/04/17 12/04/17 [Vitamin D] Ipratropium [place] 1 spr NS QID PRN 12/04/17 12/04/17 Previous Rx's Medication Instructions Recorded Clopidogrel Bisulfate [Plavix] 75 mg PO DAILY #30 tablet 10/23/17 predniSONE [PredniSONE] 20 mg PO DAILY 30 Days #30 tablet 12/02/17 Allergies Allergy/AdvReac Type Severity Reaction Status Date / Time metoprolol Allergy Hypotension Verified 12/04/17 22:36 [id number]-Imc Reductase Allergy See Verified 12/04/17 22:36 Inhibitor Comments [Statins] glimepiride [From Amaryl] AdvReac Numbness Verified 12/04/17 22:36 glipizide [From Glucotrol] AdvReac See Verified 12/04/17 22:36 Comments levofloxacin [From Levaquin] AdvReac See Verified 12/04/17 22:36 Comments sitagliptin [From Januvia] AdvReac See Verified 12/04/17 22:36 Comments All systems ED: reviewed and negative except as stated. Review of Systems: As Per HPI Constitutional: Denies: fever, chills ENT ED: Denies: congestion Cardiovascular: Reports: dyspnea on exertion, edema. Denies: chest pain, palpitations, syncope Respiratory: Denies: cough, dyspnea ( ) Gastrointestinal: Denies: abdominal pain, nausea, vomiting, diarrhea Genitourinary: Denies: dysuria Musculoskeletal: Denies: back pain, neck pain Integumentary: Denies: rash Neurological: Denies: headache, weakness Past Medical History - Past Medical History Attestation: Yes The following information was validated with the patient. Medical history: Reports: cancer, COPD, coronary artery disease, diabetes, glaucoma, hyperlipidemia, hypertension, myocardial infarction, peripheral artery disease, other Surgical history: Reports: angioplasty/stent, other Psychiatric history: Reports: no psych history - Social History Smoking Status: Former smoker Smokeless Tobacco Status: No Alcohol use: Reports: rarely Drug use: Reports: none Physical Exam CONSTITUTIONAL: Well-appearing; well-nourished; A&O X 3, in no apparent distress. Patient is on 4 L nasal cannula his oxygen saturation is at 92% which is normal for him. He is tachycardic at 102. Vital signs are otherwise normal. HEAD: Normocephalic; atraumatic EYES: PERRL, no scleral icterus NOSE: The nose is normal in appearance without rhinorrhea NECK: No JVD or distended neck veins RESP: Normal chest excursion with respiration; breath sounds clear and equal bilaterally; no wheezes, rhonchi, or rales CARD: Tachycardic. Regular rhythm, without murmurs, rub or gallop ABD: Non-distended; non-tender, soft, without rigidity, rebound or guarding,no pulsatile mass CHEST: No pain with palpation SKIN: Normal for age and race; warm and dry without diaphoresis ; no apparent lesions EXTREMITIES: Pulses are 2 plus and equal times 4 extremities, bilateral lower extremity edema +2. No calf muscle pain - General Limitations: no limitations General appearance: alert Course Course Narrative: Plan at this time is to work the patient up for CHF exacerbation. We will also evaluate for pulmonary embolism with a initial d-dimer. Patient will receive a breathing treatment in the emergency department. He undergo a chest x-ray and EKG as well as lab work to evaluate for CHF. His lower jones edema is bilateral and pitting with tenderness I do not suspect that he has a DVT at this time. The patient does state that he took a double dose of his Lasix at home was told to 40 mg oral. He states this was under the direction of his primary care physician over the phone. States that he normally takes 20 mg daily. During patient's recent admission he had an echocardiogram done on 11/29 that showed an EF of 65%. The patient was evaluated by pulmonology at that time it appears that his treatment of his COPD has been maximized. They are expressing concern that this may just be the progression of the patient's disease. Recommend following up outpatient for pulmonary rehabilitation. - Reevaluation(s) Reevaluation #1: Discussed given patient's exertional dyspnea requiring 4 L nasal cannula oxygen as well as his elevated lactate and his elevated troponin patient will need to be admitted to hospital for IV hydration as well as diuresis. Discussed with the patient given his current lab findings may consider was unable home is that he will continue to worsen in his condition they will return. Discussed plan to admit the patient hospital he is reluctant, however his family is concerned with his dyspnea on nursing the patient to be admitted. He states after speaking with his family with the physician that he is agreeable to admission. Time: 22:41 Vital Signs Temperature 98.0 F 12/04/17 20:10 Pulse Rate 102 12/04/17 20:10 Respiratory Rate 19 12/04/17 20:10 Blood Pressure 107/51 12/04/17 20:10 O2 Sat by Pulse Oximetry 88 12/04/17 20:10 Temperature 98.0 F 12/04/17 20:10 Pulse Rate 87 12/04/17 22:15 Respiratory Rate 18 12/04/17 22:15 Blood Pressure 122/90 12/04/17 22:15 O2 Sat by Pulse Oximetry 96 12/04/17 22:15 Oxygen Delivery Oxygen Delivery Nasal Cannula Medical Decision Making - Medical Records Medical records reviewed: Yes I reviewed the patient's medical records. - Lab Data Lab results reviewed: Yes I reviewed the patient's lab results. Result diagrams: 12/04/17 20:42 12/04/17 20:42 Lab Results 12/04/17 12/04/17 12/04/17 Range/Units 20:42 20:42 20:42 WBC 10.3 (4.3-11.1) K/mcL RBC 4.36 (4.19-5.50) M/mcL Hgb 11.7 L D (12.9-16.9) g/dL Hct 37.9 (37.5-50.1) % MCV 86.9 (83.0-100.0) fL MCH 26.8 L (28.0-33.3) pg MCHC 30.9 L (31.6-35.5) g/dL RDW 14.6 H (11.5-14.5) % Plt Count 311 (140-400) K/mcL MPV 10.1 (9.4-12.4) fL Immature Gran % 1.8 (0-4) % Seg Neutrophils % 80.2 % Lymphocytes % 9.5 % Monocytes % 8.3 % Eosinophils % 0.1 % Basophils % 0.1 % Neutrophils # 8.3 (1.6-8.9) K/mcL Lymphocytes # 1.0 (0.6-4.6) K/mcL Monocytes # 0.9 (0.0-1.3) K/mcL Eosinophils # 0.0 (0.0-0.6) K/mcL Basophils # 0.0 (0.0-0.2) K/mcL Nucleated RBCs/100 WBC 0.6 H (0) /100 WBC D-Dimer 335 (0-500) ng/mLFEU Sodium 140 (136-145) mEq/L Potassium 3.8 (3.5-5.1) mEq/L Chloride 104 (98-107) mEq/L Carbon Dioxide 24 (23-29) mEq/L BUN 29 H (8-23) mg/dL Creatinine 1.00 (0.70-1.30) mg/dL Est GFR ( Amer) > 60 (> 60) Est GFR (Non-Af Amer) > 60 (> 60) BUN/Creatinine Ratio 29 H (6-26) Glucose 164 H (70-105) mg/dL Calculated Osmolality 299 (280-300) Lactic Acid (0.5-2.2) mmol/L Calcium 9.2 (8.6-10.3) mg/dL Troponin I 0.04 H* (< 0.04) ng/mL B-Natriuretic Peptide (Less than 100) pg/mL 12/04/17 12/04/17 Range/Units 20:42 20:42 WBC (4.3-11.1) K/mcL RBC (4.19-5.50) M/mcL Hgb (12.9-16.9) g/dL Hct (37.5-50.1) % MCV (83.0-100.0) fL MCH (28.0-33.3) pg MCHC (31.6-35.5) g/dL RDW (11.5-14.5) % Plt Count (140-400) K/mcL MPV (9.4-12.4) fL Immature Gran % (0-4) % Seg Neutrophils % % Lymphocytes % % Monocytes % % Eosinophils % % Basophils % % Neutrophils # (1.6-8.9) K/mcL Lymphocytes # (0.6-4.6) K/mcL Monocytes # (0.0-1.3) K/mcL Eosinophils # (0.0-0.6) K/mcL Basophils # (0.0-0.2) K/mcL Nucleated RBCs/100 WBC (0) /100 WBC D-Dimer (0-500) ng/mLFEU Sodium (136-145) mEq/L Potassium (3.5-5.1) mEq/L Chloride (98-107) mEq/L Carbon Dioxide (23-29) mEq/L BUN (8-23) mg/dL Creatinine (0.70-1.30) mg/dL Est GFR ( Amer) (> 60) Est GFR (Non-Af Amer) (> 60) BUN/Creatinine Ratio (6-26) Glucose (70-105) mg/dL Calculated Osmolality (280-300) Lactic Acid 4.9 H* (0.5-2.2) mmol/L Calcium (8.6-10.3) mg/dL Troponin I (< 0.04) ng/mL B-Natriuretic Peptide 364 H (Less than 100) pg/mL - Radiology Data Radiology results reviewed: Yes I reviewed the patient's radiology results. Chest X-Ray 12/04/17 20:34 IMPRESSION: No acute abnormality D/ / Raj Miller / Raj Miller Interpreting Provider: Raj Miller - EKG Data EKG #1 EKG attestation: Yes I reviewed and interpreted this EKG. EKG results narrative: Patient EKG done at 21:07 shows atrial fibrillation at a rate of 94 bpm. Right axis deviation, right bundle branch block, changes are not new when compared to EKG done on 11/28/17.
[2017-12-04 21:21] LABS: Troponin I 0.04 ng/mL (< 0.04)
[2017-12-04] MEDS ORDERED: Aspirin 325 MG TABLET PO ONE (22:56)
--- NOTE | 2017-12-04 23:38 | Internal Med History&Physical ---
Date of Encounter: 12/05/17 Time of Encounter: 23:34 Internal Medicine - H&P: HPI Admitted From: Home Plans for Post Hospital Care: Home History of present illness: Mr. Starks is a 72 year old male Patient recently discharged from the hospital 2 days ago, originally admitted for shortness of breath and lower extremity swelling. Presents today to the ER with worsening shortness of breath and lower extremity swelling. He states that he got up this morning took his normal dose of Lasix, but throughout the day the swelling in his legs increased and his breathing became more labored. He took a second dose of Lasix earlier than he normally would, and was about to take another dose before calling his PCP for further instructions. Over the phone the patient's primary care doctor could not fully assess the situation, and recommended the patient go to emergency room for further evaluation. In the emergency room chest x-ray showed no acute abnormalities, he received a dose of Lasix IV and is breathing much better. He would prefer to go home, however his family is worried and would rather him stay for the night for monitoring and medications. Of note patient has a elevated lactate at 4.9, now improved to 4.3 after 1 L of IV fluids. He does not meet sepsis criteria, and there is no obvious signs of infection. He does take metformin 1000 mg twice a day which can cause elevated lactate. He had elevated lactate last admission as well thought to be due to hypoxia. This is likely repeating again now. Patient also has an elevated troponin of 0.04, but no chest pain and his EKG done in the emergency room was similar to previous. Patient's BNP was also elevated at 364. Past Med Surg Social Fam HX - Past Medical History Medical history: cancer, COPD, coronary artery disease, diabetes, glaucoma, hyperlipidemia, hypertension, myocardial infarction, peripheral artery disease, other Additional medical history: ANEMIA, SLEEP APNEA, CPAP,SKIN CANCER Psychiatric history: no psych history - Past Surgical History Surgical History: angioplasty/stent, other Additional surgical history: RECTAL SURGERY, KNEE SURGERY, CATARACT REMOVAL, CARDIAC STENT, LUNG BIOPSY, ANGIOGRAM WITH ANGIOPLASTY OF LEFT FEMORAL ARTERAY, SKIN CANCER REMOVED - Social History Smoking Status: Former smoker Smokeless Tobacco Status: No Alcohol use: rarely Drug use: none - Family History Mother Living Status: Hx Family Cardiac Disorders: No Hx Family Respiratory Disorders: No Hx Family Cancer: No Hx Family GI Disorders: No Hx Family Endocrine Disorder: No Hx Family Neuromuscular Disorders: No Hx Family Neurologic Disorders: No Hx Family HEENT Disorders: No Hx Family Autoimmune Disorders: No Father Adopted: No Family Member Ethnicity: Non- Living Status: Hx Family Cardiac Disorders: Yes Hx Family Respiratory Disorders: No Hx Family Cancer: No Hx Family GI Disorders: No Hx Family Endocrine Disorder: No Hx Family Neuromuscular Disorders: No Hx Family Neurologic Disorders: No Hx Family HEENT Disorders: No Hx Family Autoimmune Disorders: No Internal Medicine - H&P: Meds Metformin HCl [Fortamet] 1,000 mg PO BID 02/03/15 [History] Cyclosporine [Restasis] 1 drop BOTH EYES BID 07/10/15 [History] Fluticasone Propionate Nasal [Flonase] 50 mcg NS BID 07/10/15 [History] Furosemide [Lasix] 40 mg PO DAILY PRN 09/06/16 [History] Gabapentin [Neurontin] 100 mg PO HS PRN 09/06/16 [History] Ipratropium/Albuterol Neb [Duoneb] 3 ml IH Q6HR 09/06/16 [History] Roflumilast [Daliresp] 500 mcg PO DAILY 07/22/17 [History] Albuterol Sulfate [Proair Respiclick] 90 mcg IH Q4H PRN 10/23/17 [History] Aspirin [Lo-Dose Aspirin EC] 81 mg PO DAILY 10/23/17 [History] Clopidogrel Bisulfate [Plavix] 75 mg PO DAILY #30 tablet 10/23/17 [Rx] Exenatide Microspheres [Bydureon] 2 mg SQ SA 10/23/17 [History] Tamsulosin [Flomax] 0.4 mg PO BID 10/23/17 [History] Finasteride [Proscar] 5 mg PO DAILY 11/28/17 [History] Fluticasone/Salmeterol [Advair Hfa 230-21 Mcg Inhaler] 2 puff IH BID 11/28/17 [ History] Latanoprost [Xalatan] 1 drop BOTH EYES HS 11/28/17 [History] Nebivolol HCl [Bystolic] 2.5 mg PO DAILY 11/28/17 [History] Ramipril [Altace] 5 mg PO DAILY 11/28/17 [History] glipiZIDE [Glipizide] 10 mg PO DAILY 11/28/17 [History] predniSONE [PredniSONE] 20 mg PO DAILY 30 Days #30 tablet 12/02/17 [Rx] Brimonidine 0.2% [Alphagan] 1 drop BOTH EYES BID 12/04/17 [History] Ca/D3/Mag Ox/Zinc/Sound Mixer/Julio C/Bor [Calcium 600-D3 Plus Caplet] 2 tab PO DAILY 12/04 [History] Cholecalciferol (Vitamin D3) [Vitamin D] 1,000 unit PO DAILY 12/04/17 [History] Ipratropium [place] 1 spr NS QID PRN 12/04/17 [History] 3 Allergy/AdvReac Type Severity Reaction Status Date / Time metoprolol Allergy Hypotension Verified 12/04/17 22:36 [id number] Reductase Allergy See Verified 12/04/17 22:36 Inhibitor Comments [Statins] glimepiride [From Amaryl] AdvReac Numbness Verified 12/04/17 22:36 levofloxacin [From Levaquin] AdvReac See Verified 12/04/17 22:36 Comments sitagliptin [From Januvia] AdvReac See Verified 12/04/17 22:36 Comments All Systems PM: A 10-system review of systems was performed and is negative for pertinent findings except as documented above in the HPI. - Constitutional Vitals: Temp Pulse Resp BP Pulse Ox 98.0 F 81 18 125/75 97 12/04/17 20:10 12/04/17 23:00 12/04/17 23:00 12/04/17 23:00 12/04/17 23:00 General appearance: Present: A&O X 3, pleasant, no acute distress - Eye Eye exam: Present: EOMI, normal appearance - Respiratory Respiratory exam: Present: CTAB, rales. Absent: respiratory distress Additional comments: Mild crackles at lung bases bilaterally. - Cardiovascular Cardiovascular exam: Present: irregular rhythm. Absent: diastolic murmur, systolic murmur - GI/Abdominal GI/Abdominal exam: Present: normal bowel sounds. Absent: guarding, tenderness - Extremities Exam Extremities exam: Present: full ROM, normal inspection, warm. Absent: tenderness - Neurological Exam Neurological exam: Present: oriented X3, no focal deficits, strengths equal and symetr throughout. Absent: facial droop, speech deficit - Skin Skin exam: Present: dry, intact, warm Internal Med - H&P Results - Labs CBC & Chem 7: 12/05/17 03:12 12/05/17 03:12 Labs: Short CBC 12/04/17 Range/Units 20:42 WBC 10.3 (4.3-11.1) K/mcL Hgb 11.7 L D (12.9-16.9) g/dL Hct 37.9 (37.5-50.1) % Plt Count 311 (140-400) K/mcL Neutrophils # 8.3 (1.6-8.9) K/mcL BMP 12/04/17 20:42 Sodium 140 Potassium 3.8 Chloride 104 Carbon Dioxide 24 BUN 29 H Creatinine 1.00 Glucose 164 H Calcium 9.2 Cardiac Enzymes 12/04/17 Range/Units 20:42 Troponin I 0.04 H* (< 0.04) ng/mL - Impressions ITS Impressions Chest X-Ray 12/04/17 20:34 IMPRESSION: No acute abnormality D/ / Raj Miller / Raj Miller Interpreting Provider: Raj Miller - Assessment and plan (1) Acute exacerbation of chronic obstructive airways disease Current Visit: No Status: Suspected Assessment and plan: Similar to previous admission from last week, improved since giving lasix in the ER. Lactate elevated, likely a result of hypoxia. I do not suspect pneumonia at this time as white count not elevated, and vitals within normal limits. Patient does not meet sepsis criteria. Requiring 4L of oxygen via nasal cannula. Mild crackles at lung bases bilaterally. Holding additional fluids at this time. Continue to monitor Breathing treatments with duonebs and albuterol. Prednisone 40mg oral Azithromycin for anti-inflammatory effects. Continue lasix IV. (2) Acute hypoxemic respiratory failure Current Visit: Yes Status: Acute Assessment and plan: Secondary to COPD exacerbation. On 4L of oxygen, improving with IV lasix. Treatment as above. (3) Dyspnea Current Visit: No Status: Acute Assessment and plan: Secondary to COPD exacerbation. Treatment as above. Qualifiers: Qualified Code(s): R06.00 - Dyspnea, unspecified (4) Lactic acidosis Current Visit: No Status: Acute Assessment and plan: Similar to previous admission. Improved slightly after 1L of IV fluids. Cant give IV fluids due to fluid overload. Most likely a consequence of hypoxia. We will treat with lasix as above, and continue to monitor. No signs of infection. Repeat lactic acid in the morning. (5) Diabetes Current Visit: No Status: Chronic Assessment and plan: We will hold patient's metformin as above and glipizide. Insulin basal dose of 10u tonight Low dose sliding scale. Qualifiers: Diabetes mellitus type: type 2 Diabetes mellitus termite treater helper insulin use: without termite treater helper use Diabetes mellitus complication status: with circulatory complication Diabetes mellitus complication detail: with other circulatory complications Qualified Code(s): E11.59 - Type 2 diabetes mellitus with other circulatory complications (6) History of coronary artery disease Current Visit: No Status: Chronic Assessment and plan: Chronic, patient had an elevated troponin of 0.04 in the ER. Denies chest pain. During the night it elevated again to 0.05. Patient denies chest pain, no significant changes on EKG. Troponin elevation could also be caused by hypoxia due to his respirtory status Continue to monitor troponins (7) Elevated troponin Current Visit: Yes Status: Acute Assessment and plan: As above, elevated at 0.04, then to 0.05. No EKG changes, no chest pain. Could be secondary to hypoxia. Continue to monitor. (8) Elevated lactic acid level Current Visit: Yes Status: Acute Assessment and plan: As above, likely secondary to hypoxia, not infection. No signs of infection noted on exam or on vitals. Does not meet sepsis criteria. Continue to monitor as we treat with lasix and improve respiratory function. (9) Edema, lower extremity Current Visit: Yes Status: Acute Assessment and plan: Worse than his baseline, 2+ pitting bilaterally. Continue treatment with lasix. (10) DVT prophylaxis Current Visit: No Status: Acute Assessment and plan: Heparin. - Time Spent With Patient Total time spent is greater than 50% in coordination of care (as documented) at patient's floor/unit and/or counseling patient:
[2017-12-05] MEDS ORDERED: Acetaminophen 325 MG TABLET PO PRN (00:48)
[2017-12-05] MEDS ORDERED: Naloxone 0.4 MG/ML INJ IVP PRN (00:48)
[2017-12-05] MEDS ORDERED: Gabapentin 100 MG CAPSULE PO PRN (01:24)
[2017-12-05] MEDS ORDERED: Dextrose Gel 15 GM/37.5 ML TUBE PO PRN ×2 (01:27)
[2017-12-05] MEDS ORDERED: *HR* Dextrose 50 % in Water (Syg) 50 ML SYRINGE IVP PRN (01:27)
[2017-12-05] MEDS ORDERED: D5% in Water 1,000 ML IVC PRN (01:27)
[2017-12-05] MEDS: Insulin DETEMIR 100 UNIT/ML X5UNITS SQ SCH ×2 (01:48→20:12)
[2017-12-05] MEDS: Azithromycin 500 MG in D5% in Water 250 ML IVPB SCH (02:15)
[2017-12-05 03:33] LABS: Hematocrit 34.7 % (37.5-50.1); Hemoglobin 10.7 g/dL (12.9-16.9); Mean Corpuscular HGB Conc 30.8 g/dL (31.6-35.5); Mean Corpuscular Hemoglobin 26.8 pg (28.0-33.3); Mean Corpuscular Volume 86.8 fL (83.0-100.0); Platelet Count 275 K/mcL (140-400); Red Cell Distribution Width 14.6 % (11.5-14.5)
[2017-12-05 03:58] LABS: BUN/Creatinine Ratio 28 (6-26); Blood Urea Nitrogen 26 mg/dL (8-23); Calcium 8.6 mg/dL (8.6-10.3); Carbon Dioxide 27 mEq/L (23-29); Chloride 105 mEq/L (98-107); Glucose 119 mg/dL (70-105); Osmolality,Calculated 298 (280-300); Potassium 3.4 mEq/L (3.5-5.1); Sodium 141 mEq/L (136-145); eGFR For African Americans > 60 (> 60); eGFR For Non-African Americans > 60 (> 60)
[2017-12-05] MEDS: Ipratropium/Albuterol Neb 3 ML IH SCH ×6 (04:05→23:21)
[2017-12-05] MEDS: Albuterol 2.5 MG/3 ML NEBULIZER IH SCH ×5 (04:06→19:44)
[2017-12-05] MEDS: *HR* Heparin 5,000 UNIT/ML VIAL SQ SCH ×2 (05:57→17:03)
--- NOTE | 2017-12-05 09:51 | Internal Med Progress Note ---
Date of Encounter: 12/05/17 Time of Encounter: 09:45 - Assessment and plan (1) CHF (congestive heart failure) Current Visit: No Status: Acute Assessment and plan: Pt has lower extremity swelling and SOB. will continue on IV lasix BID Qualifiers: Heart failure type: diastolic Heart failure chronicity: acute on chronic Qualified Code(s): I50.33 - Acute on chronic diastolic (congestive) heart failure (2) Acute exacerbation of chronic obstructive airways disease Current Visit: No Status: Suspected Assessment and plan: Continue nebs, steroids and antibiotics (3) Diabetes Current Visit: No Status: Chronic Assessment and plan: Insulin as needed Qualifiers: Diabetes mellitus type: type 2 Diabetes mellitus fci insulin use: without keno terminal operator use Diabetes mellitus complication status: with circulatory complication Diabetes mellitus complication detail: with other circulatory complications Qualified Code(s): E11.59 - Type 2 diabetes mellitus with other circulatory complications (4) Cellulitis Current Visit: Yes Status: Acute Assessment and plan: Has bilateral lower extremity warmth. Continue antibiotics with ceftriaxone and azithromycin Qualifiers: Qualified Code(s): L03.90 - Cellulitis, unspecified (5) DVT prophylaxis Current Visit: No Status: Acute (6) Hypertension Current Visit: Yes Status: Acute Assessment and plan: Continue lisinopril Qualifiers: Qualified Code(s): I10 - Essential (primary) hypertension (7) Coronary artery disease Current Visit: Yes Status: Acute Assessment and plan: Continue aspirin and plavix Qualifiers: Qualified Code(s): I25.10 - Atherosclerotic heart disease of [place] coronary artery without angina pectoris - Time Spent With Patient Total time spent is greater than 50% in coordination of care (as documented) at patient's floor/unit and/or counseling patient: - Subjective Interval history: No acute events overnight - Constitutional Vitals: Temp Pulse Resp BP Pulse Ox 98.1 F 80 16 110/68 92 12/05/17 07:21 12/05/17 07:21 12/05/17 07:25 12/05/17 07:25 12/05/17 07:25 General appearance: Present: A&O X 3, pleasant, no acute distress - Head Head exam: Present: atraumatic, normocephalic - Eye Eye exam: Present: PERRL, conjuntiva pink, sclera anicteric Pupils: Present: PERRL - Neck Neck exam general surgery: Present: supple, trachea midline. Absent: lymphadenopathy - Respiratory Respiratory exam: Present: CTAB. Absent: accessory muscle use, rales, rhonchi, wheezes - Cardiovascular Cardiovascular exam: Present: RRR, +S1, +S2. Absent: diastolic murmur, gallop, rubs, systolic murmur - GI/Abdominal GI/Abdominal exam: Present: normal bowel sounds, soft, no peritoneal signs. Absent: distended, tenderness - Extremities Exam Extremities exam: Present: warm, radial pulses palpable and symmetrical. Absent : calf tenderness, cyanotic, pedal edema Additional comments: 2+ pitting edema - Neurological Exam Neurological exam: Present: CN II-XII intact, oriented X3, no focal deficits. Absent: pronater drift, facial droop, speech deficit - Skin Skin exam: Present: dry, intact Internal Medicine: Result - Labs CBC & Chem 7: 12/05/17 03:12 12/05/17 03:12 Labs: Short CBC 12/05/17 Range/Units 03:12 WBC 8.9 (4.3-11.1) K/mcL Hgb 10.7 L (12.9-16.9) g/dL Hct 34.7 L (37.5-50.1) % Plt Count 275 (140-400) K/mcL BMP 12/05/17 03:12 Sodium 141 Potassium 3.4 L Chloride 105 Carbon Dioxide 27 BUN 26 H Creatinine 0.92 Glucose 119 H Calcium 8.6 Cardiac Enzymes 12/05/17 12/05/17 Range/Units 03:12 08:27 Troponin I 0.05 H* 0.05 H* (< 0.04) ng/mL - ABG Interpretation ABG results: PT/INR, D-dimer D-Dimer 335 ng/mLFEU (0-500) 12/04/17 20:42 Consult Discharge Plan - Plan Referrals: Alfonso Shane MD [Primary Care Provider] -
[2017-12-05] MEDS: Insulin LISPRO 300 UNITS/3 ML VIAL SQ SCH ×3 (10:40→17:05)
[2017-12-05] MEDS: Cholecalciferol (D-3) 1,000 UNIT TABLET PO SCH (10:44)
[2017-12-05] MEDS: Furosemide 40 MG/4 ML VIAL IVP SCH (10:45)
[2017-12-05] MEDS: Lisinopril 20 MG TABLET PO SCH (10:45)
[2017-12-05] MEDS: predniSONE 20 MG TABLET PO SCH (10:45)
[2017-12-05] MEDS: Gabapentin 100 MG CAPSULE PO SCH ×3 (10:45→20:11)
[2017-12-05] MEDS: Aspirin Enteric Coated 81 MG Tablet PO SCH (10:45)
[2017-12-05] MEDS: Finasteride 5 MG TABLET PO SCH (10:45)
[2017-12-05] MEDS: cefTRIAXone 1,000 MG in Water for inj. (sterile) 20 ML 10 ML IVP SCH (10:45)
[2017-12-05] MEDS: Maxitrol OPTH SUSP 5 ML BOTTLE RIGHT EYE SCH ×4 (10:46→20:16)
[2017-12-05] MEDS: (Cyclosporine [Restasis] 1 DROP) BOTH EYES SCH ×2 (11:03→20:11)
[2017-12-05] MEDS: NEBIVOLOL HCL 2.5 MG PO SCH (11:03)
[2017-12-05] MEDS: Budesonide/Formoterol 160/4.5 MDI IH SCH ×2 (11:25→19:49)
[2017-12-05] MEDS: Potassium Chloride Elixir 20 MEQ/15 ML UDC PO SCH (20:11)
[2017-12-05] MEDS: Latanoprost 2.5 ML BOTTLE BOTH EYES SCH (20:17)
[2017-12-06] MEDS: Azithromycin 500 MG in D5% in Water 250 ML IVPB SCH (02:19)
[2017-12-06] MEDS: Albuterol 2.5 MG/3 ML NEBULIZER IH SCH ×6 (03:04→19:46)
[2017-12-06] MEDS: Ipratropium/Albuterol Neb 3 ML IH SCH ×5 (03:35→19:47)
[2017-12-06] MEDS: *HR* Heparin 5,000 UNIT/ML VIAL SQ SCH ×2 (06:55→17:03)
[2017-12-06] MEDS: Budesonide/Formoterol 160/4.5 MDI IH SCH ×2 (07:32→19:47)
--- NOTE | 2017-12-06 09:13 | Internal Med Progress Note ---
Date of Encounter: 12/06/17 Time of Encounter: 09:20 - Assessment and plan (1) CHF (congestive heart failure) Current Visit: No Status: Acute Assessment and plan: Pt has lower extremity swelling and SOB. will continue on IV lasix BID Qualifiers: Heart failure type: diastolic Heart failure chronicity: acute on chronic Qualified Code(s): I50.33 - Acute on chronic diastolic (congestive) heart failure (2) Acute exacerbation of chronic obstructive airways disease Current Visit: No Status: Suspected Assessment and plan: Continue nebs, steroids and antibiotics (3) Diabetes Current Visit: No Status: Chronic Assessment and plan: Insulin as needed Qualifiers: Diabetes mellitus type: type 2 Diabetes mellitus [facility] insulin use: without intermediate frame tender use Diabetes mellitus complication status: with circulatory complication Diabetes mellitus complication detail: with other circulatory complications Qualified Code(s): E11.59 - Type 2 diabetes mellitus with other circulatory complications (4) Cellulitis Current Visit: Yes Status: Acute Assessment and plan: Has bilateral lower extremity warmth. Continue antibiotics with ceftriaxone and azithromycin Qualifiers: Qualified Code(s): L03.119 - Cellulitis of unspecified part of limb (5) DVT prophylaxis Current Visit: No Status: Acute Assessment and plan: heparin sc q 12 (6) Hypertension Current Visit: Yes Status: Acute Assessment and plan: Continue lisinopril Qualifiers: Hypertension type: essential hypertension Qualified Code(s): I10 - Essential (primary) hypertension (7) Coronary artery disease Current Visit: Yes Status: Acute Assessment and plan: Continue aspirin and plavix Qualifiers: Qualified Code(s): I25.10 - Atherosclerotic heart disease of [place] coronary artery without angina pectoris - Time Spent With Patient Total time spent is greater than 50% in coordination of care (as documented) at patient's floor/unit and/or counseling patient: - Subjective Interval history: No acute events overnight - Constitutional Vitals: Temp Pulse Resp BP Pulse Ox 97.7 F 69 16 120/76 100 12/06/17 07:32 12/06/17 07:32 12/06/17 07:32 12/06/17 07:32 12/06/17 07:32 General appearance: Present: A&O X 3, pleasant, no acute distress - Head Head exam: Present: atraumatic, normocephalic - Eye Eye exam: Present: PERRL, conjuntiva pink, sclera anicteric Pupils: Present: PERRL - Neck Neck exam general surgery: Present: supple, trachea midline. Absent: lymphadenopathy - Respiratory Respiratory exam: Present: CTAB. Absent: accessory muscle use, rales, rhonchi, wheezes - Cardiovascular Cardiovascular exam: Present: RRR, +S1, +S2. Absent: diastolic murmur, gallop, rubs, systolic murmur - GI/Abdominal GI/Abdominal exam: Present: normal bowel sounds, soft, no peritoneal signs. Absent: distended, tenderness - Extremities Exam Extremities exam: Present: warm, radial pulses palpable and symmetrical. Absent : calf tenderness, cyanotic, pedal edema - Neurological Exam Neurological exam: Present: CN II-XII intact, oriented X3, no focal deficits. Absent: pronater drift, facial droop, speech deficit - Skin Skin exam: Present: dry, intact Internal Medicine: Result - Labs CBC & Chem 7: 12/05/17 03:12 12/05/17 03:12 Labs: Cardiac Enzymes 12/05/17 Range/Units 08:27 Troponin I 0.05 H* (< 0.04) ng/mL - ABG Interpretation ABG results: PT/INR, D-dimer D-Dimer 335 ng/mLFEU (0-500) 12/04/17 20:42 Consult Discharge Plan - Plan Referrals: Alfonso Shane MD [Primary Care Provider] -
[2017-12-06] MEDS: Insulin LISPRO 300 UNITS/3 ML VIAL SQ SCH ×3 (09:41→17:04)
[2017-12-06] MEDS: Potassium Chloride Elixir 20 MEQ/15 ML UDC PO SCH ×2 (10:23→21:14)
[2017-12-06] MEDS: Furosemide 40 MG/4 ML VIAL IVP SCH ×2 (10:23→21:17)
[2017-12-06] MEDS: Cholecalciferol (D-3) 1,000 UNIT TABLET PO SCH (10:23)
[2017-12-06] MEDS: Gabapentin 100 MG CAPSULE PO SCH ×3 (10:23→21:12)
[2017-12-06] MEDS: Lisinopril 20 MG TABLET PO SCH (10:23)
[2017-12-06] MEDS: Aspirin Enteric Coated 81 MG Tablet PO SCH (10:23)
[2017-12-06] MEDS: Finasteride 5 MG TABLET PO SCH (10:23)
[2017-12-06] MEDS: predniSONE 20 MG TABLET PO SCH (10:23)
[2017-12-06] MEDS: cefTRIAXone 1,000 MG in Water for inj. (sterile) 20 ML 10 ML IVP SCH (10:24)
[2017-12-06] MEDS: NEBIVOLOL HCL 2.5 MG PO SCH (10:26)
[2017-12-06] MEDS: Maxitrol OPTH SUSP 5 ML BOTTLE RIGHT EYE SCH ×4 (10:26→21:13)
[2017-12-06] MEDS: (Cyclosporine [Restasis] 1 DROP) BOTH EYES SCH ×2 (10:27→21:13)
[2017-12-06] MEDS: Latanoprost 2.5 ML BOTTLE BOTH EYES SCH (17:05)
[2017-12-06] MEDS: Insulin DETEMIR 100 UNIT/ML X5UNITS SQ SCH (21:12)
[2017-12-07] MEDS: Azithromycin 500 MG in D5% in Water 250 ML IVPB SCH (02:00)
[2017-12-07] MEDS: Ipratropium/Albuterol Neb 3 ML IH SCH ×4 (03:42→11:22)
[2017-12-07] MEDS: Albuterol 2.5 MG/3 ML NEBULIZER IH SCH ×4 (03:45→11:22)
[2017-12-07] MEDS: *HR* Heparin 5,000 UNIT/ML VIAL SQ SCH (06:26)
--- NOTE | 2017-12-07 07:00 | Electrocardiograph Report ---
[place] [id number] Test Date: 2017-12-05 Pat Name: Nilton Starks Department: 111 Room: [facility] Gender: M Sizing Sponger: JUDE : 1945 Requested By: Rigoberto Romero Order Number: [id number] Reading MD: Quintin Forman Measurements Intervals [place] Rate: 93 P: CT: 0 QRS: 228 QRSD: 148 T: -1 QT: 411 QTc: 461 Interpretive Statements ATRIAL FIBRILLATION MARKED RIGHT AXIS DEVIATION RIGHT BUNDLE BRANCH BLOCK INFERIOR MYOCARDIAL INFARCTION, PROBABLY OLD BASELINE ARTIFACT Electronically Signed On 12-07-2017 6:59:00 EDT by Quintin Forman
[2017-12-07] MEDS: Budesonide/Formoterol 160/4.5 MDI IH SCH (07:18)
--- NOTE | 2017-12-07 08:43 | Internal Med Progress Note ---
Date of Encounter: 12/07/17 Time of Encounter: 08:30 - Assessment and plan (1) CHF (congestive heart failure) Status: Acute Assessment and plan: Pt has lower extremity swelling and SOB. will continue on IV lasix BID. Improved symptomatically Qualifiers: Heart failure type: diastolic Heart failure chronicity: acute on chronic Qualified Code(s): I50.33 - Acute on chronic diastolic (congestive) heart failure (2) Acute exacerbation of chronic obstructive airways disease Status: Suspected Assessment and plan: Continue nebs, steroids and antibiotics. Had recently completed a course of Iv steroids and was recently discharged on 12/02 for COPD exacerbation. Plan to complete tapering course and follow up with pulmonary (3) Diabetes Status: Chronic Assessment and plan: Insulin as needed Qualifiers: Diabetes mellitus type: type 2 Diabetes mellitus assisted insulin use: without assisted use Diabetes mellitus complication status: with circulatory complication Diabetes mellitus complication detail: with other circulatory complications Qualified Code(s): E11.59 - Type 2 diabetes mellitus with other circulatory complications (4) Cellulitis Status: Acute Assessment and plan: Has bilateral lower extremity warmth. Continue antibiotics with ceftriaxone and azithromycin Qualifiers: Laterality: unspecified laterality Qualified Code(s): L03.019 - Cellulitis of unspecified finger (5) DVT prophylaxis Status: Acute Assessment and plan: heparin sc q 12 (6) Hypertension Status: Acute Assessment and plan: Continue lisinopril Qualifiers: Hypertension type: essential hypertension Qualified Code(s): I10 - Essential (primary) hypertension (7) Coronary artery disease Status: Acute Assessment and plan: Continue aspirin and plavix Qualifiers: Qualified Code(s): I25.10 - Atherosclerotic heart disease of [place] coronary artery without angina pectoris - Time Spent With Patient Total time spent is greater than 50% in coordination of care (as documented) at patient's floor/unit and/or counseling patient: - Subjective Interval history: No acute events overnight - Constitutional Vitals: Temp Pulse Resp BP Pulse Ox 97.7 F 88 16 89/51 95 12/07/17 06:45 12/07/17 06:45 12/07/17 07:18 12/07/17 06:45 12/07/17 07:18 General appearance: Present: A&O X 3, pleasant, no acute distress - Head Head exam: Present: atraumatic, normocephalic - Eye Eye exam: Present: PERRL, conjuntiva pink, sclera anicteric Pupils: Present: PERRL - Neck Neck exam general surgery: Present: supple, trachea midline. Absent: lymphadenopathy - Respiratory Respiratory exam: Present: CTAB. Absent: accessory muscle use, rales, rhonchi, wheezes - Cardiovascular Cardiovascular exam: Present: RRR, +S1, +S2. Absent: diastolic murmur, gallop, rubs, systolic murmur - GI/Abdominal GI/Abdominal exam: Present: normal bowel sounds, soft, no peritoneal signs. Absent: distended, tenderness - Extremities Exam Extremities exam: Present: warm, radial pulses palpable and symmetrical. Absent : calf tenderness, cyanotic, pedal edema - Neurological Exam Neurological exam: Present: CN II-XII intact, oriented X3, no focal deficits. Absent: pronater drift, facial droop, speech deficit - Skin Skin exam: Present: dry, intact Internal Medicine: Result - Labs CBC & Chem 7: 12/05/17 03:12 12/05/17 03:12 - ABG Interpretation ABG results: PT/INR, D-dimer D-Dimer 335 ng/mLFEU (0-500) 12/04/17 20:42 Consult Discharge Plan - Plan Instructions: Furosemide (By mouth), Cefdinir (By mouth), Heart Failure (DC), Acute Respiratory Distress Syndrome (DC), Cellulitis (DC), Diabetes Mellitus Type 2 in Adults (DC), Peripheral Vascular Disorders (DC), Chronic Obstructive Pulmonary Disease (DC), Sepsis (DC), Chronic Hypertension (DC), Sleep Apnea Syndrome, Referral Manager (GEN) Referrals: Alfonso Shane MD [Primary Care Provider] - 12/10/17 10:30 am Prescriptions: Cefdinir [Omnicef] 300 mg PO BID #6 capsule Furosemide [Lasix] 40 mg PO BID 60 Days #120 tab
--- NOTE | 2017-12-07 09:12 | Discharge Summary ---
Date of Encounter: 12/07/17 Time of Encounter: 09:00 - Discharge Diagnosis (1) CHF (congestive heart failure) Priority: Primary Status: Acute Assessment and Plan: 72 year old male patient recently discharged from the hospital 2 days ago, originally admitted for shortness of breath and lower extremity swelling. Presents today to the ER with worsening shortness of breath and lower extremity swelling. He states that he got up this morning took his normal dose of Lasix, but throughout the day the swelling in his legs increased and his breathing became more labored. He took a second dose of Lasix earlier than he normally would, and was about to take another dose before calling his PCP for further instructions. He came to the ER and was given one dose of lasix with improvement in his symptoms. He was assessed with acute CHF exacerbation and mild COPD exacerbation. He was treated with IV diuresis, nebs, steroids and antibiotics. He improved symptomatically with improvement in his SOB with IV diuresis and nebs treatment. His dose of lasix was doubled on discharge. He is to continue steroids and follow up with his PCP and pulmonary. 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 insulin use: without rodent exterminator use Diabetes mellitus complication status: with circulatory complication Diabetes mellitus complication detail: with other circulatory complications Qualified Code(s): E11.59 - Type 2 diabetes mellitus with other circulatory complications (4) Cellulitis Priority: Secondary Status: Acute Qualifiers: Laterality: unspecified laterality Qualified Code(s): L03.119 - Cellulitis of unspecified part of limb (5) DVT prophylaxis Priority: Secondary Status: Acute (6) Hypertension Priority: Secondary Status: Acute Qualifiers: Hypertension type: essential hypertension Qualified Code(s): I10 - Essential (primary) hypertension (7) Coronary artery disease Priority: Secondary Status: Acute Qualifiers: Qualified Code(s): I25.10 - Atherosclerotic heart disease of [place] coronary artery without angina pectoris Hospital course: Mr. Starks is a 72 year old male - Time Spent with Patient Total time spent providing and/or coordinating discharge services: - Discharge Medications Prescriptions: Cefdinir [Omnicef] 300 mg PO BID #6 capsule Furosemide [Lasix] 40 mg PO BID 60 Days #120 tab Home Medications: Metformin HCl [Fortamet] 1,000 mg PO BID 02/03/15 [History] Cyclosporine [Restasis] 1 drop BOTH EYES BID 07/10/15 [History] Fluticasone Propionate Nasal [Flonase] 50 mcg NS BID 07/10/15 [History] Gabapentin [Neurontin] 100 mg PO HS PRN 09/06/16 [History] Ipratropium/Albuterol Neb [Duoneb] 3 ml IH Q6HR 09/06/16 [History] Roflumilast [Daliresp] 500 mcg PO DAILY 07/22/17 [History] Albuterol Sulfate [Proair Respiclick] 90 mcg IH Q4H PRN 10/23/17 [History] Aspirin [Lo-Dose Aspirin EC] 81 mg PO DAILY 10/23/17 [History] Clopidogrel Bisulfate [Plavix] 75 mg PO DAILY #30 tablet 10/23/17 [Rx] Exenatide Microspheres [Bydureon] 2 mg SQ SA 10/23/17 [History] Tamsulosin [Flomax] 0.4 mg PO BID 10/23/17 [History] Finasteride [Proscar] 5 mg PO DAILY 11/28/17 [History] Fluticasone/Salmeterol [Advair Hfa 230-21 Mcg Inhaler] 2 puff IH BID 11/28/17 [ History] Latanoprost [Xalatan] 1 drop BOTH EYES HS 11/28/17 [History] Nebivolol HCl [Bystolic] 2.5 mg PO DAILY 11/28/17 [History] Ramipril [Altace] 5 mg PO DAILY 11/28/17 [History] glipiZIDE [Glipizide] 10 mg PO DAILY 11/28/17 [History] predniSONE [PredniSONE] 20 mg PO DAILY 30 Days #30 tablet 12/02/17 [Rx] Brimonidine 0.2% [Alphagan] 1 drop BOTH EYES BID 12/04/17 [History] Ca/D3/Mag Ox/Zinc/Wool Broker/Julio C/Bor [Calcium 600-D3 Plus Caplet] 2 tab PO DAILY 12/04 [History] Cholecalciferol (Vitamin D3) [Vitamin D3] 1,000 unit PO DAILY 12/04/17 [History] Ipratropium Bittinger 1 spr NS QID PRN 12/04/17 [History] Cefdinir [Omnicef] 300 mg PO BID #6 capsule 12/07/17 [Rx] Furosemide [Lasix] 40 mg PO BID 60 Days #120 tab 12/07/17 [Rx] Allergies/Adverse Reactions: 3 Allergy/AdvReac Type Severity Reaction Status Date / Time metoprolol Allergy Hypotension Verified 12/04/17 22:36 Yffzuyl-Rps-Bnp Reductase Allergy See Verified 12/04/17 22:36 Inhibitor Comments [Statins] glimepiride [From Amaryl] AdvReac Numbness Verified 12/04/17 22:36 levofloxacin [From Levaquin] AdvReac See Verified 12/04/17 22:36 Comments sitagliptin [From Januvia] AdvReac See Verified 12/04/17 22:36 Comments Date of admission: 12/05/17 00:48 Primary care physician: Alfonso Shane MD Consults: 12/05/17 01:18 Consult to Nurse Navigator [CONS] Routine Comment: - Constitutional Vitals: Temp Pulse Resp BP Pulse Ox 97.7 F 88 16 89/51 95 12/07/17 06:45 12/07/17 06:45 12/07/17 07:18 12/07/17 06:45 12/07/17 07:18 General appearance: Present: A&O X 3, pleasant, no acute distress - Patient Status Disposition: Home, Self-Care Condition: Fair - Discharge Instructions Instructions: Furosemide (By mouth), Cefdinir (By mouth), Heart Failure (DC), Acute Respiratory Distress Syndrome (DC), Cellulitis (DC), Diabetes Mellitus Type 2 in Adults (DC), Peripheral Vascular Disorders (DC), Chronic Obstructive Pulmonary Disease (DC), Sepsis (DC), Chronic Hypertension (DC), Sleep Apnea Syndrome, 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
[2017-12-07] MEDS: Aspirin Enteric Coated 81 MG Tablet PO SCH (09:34)
[2017-12-07] MEDS: Gabapentin 100 MG CAPSULE PO SCH (09:34)
[2017-12-07] MEDS: (Cyclosporine [Restasis] 1 DROP) BOTH EYES SCH (09:34)
[2017-12-07] MEDS: Cholecalciferol (D-3) 1,000 UNIT TABLET PO SCH (09:34)
[2017-12-07] MEDS: Finasteride 5 MG TABLET PO SCH (09:34)
[2017-12-07] MEDS: Insulin LISPRO 300 UNITS/3 ML VIAL SQ SCH (09:35)
[2017-12-07] MEDS: NEBIVOLOL HCL 2.5 MG PO SCH (09:39)
[2017-12-07] MEDS: Potassium Chloride Elixir 20 MEQ/15 ML UDC PO SCH (09:41)
[2017-12-07] MEDS: predniSONE 20 MG TABLET PO SCH (09:42)
[2017-12-07] MEDS: Lisinopril 20 MG TABLET PO SCH (09:43)
[2017-12-07] MEDS ORDERED: Furosemide 40 MG TABLET PO SCH (09:45)
[2017-12-07] MEDS ORDERED: Cefdinir 300 MG CAPSULE PO SCH (09:45)
[2017-12-07 11:18] VITALS: BP 94/53
--- NOTE | 2017-12-08 16:51 | Electrocardiograph Report ---
[address] [place], [place] [address] Test Date: 2017-12-04 Pat Name: Nilton Starks Department: 104 Room: [facility] Gender: M Manager Outreach: MAE : 1945 Requested By: Jaden Ellis Order Number: [id number] Reading MD: Nehsa Wadsworth Measurements Intervals [place] Rate: 94 P: MS: 0 QRS: 206 QRSD: 142 T: -17 QT: 389 QTc: 440 Interpretive Statements UNCLEAR UNDERLYING RHYTHM - BASELINE ARTIFACT RIGHT BUNDLE BRANCH BLOCK ST DEPRESSION, CONSIDER SUBENDOCARDIAL INJURY Electronically Signed On 12-08-2017 16:50:28 EDT by Nesha Wadsworth
== END 2017-12-07 12:29 | disposition home or self-care (01) | DRG 291 ==
LOC: EMEROO 20:09 → 2NENU 20:09
PROVIDERS: ADMIT Internal Medicine; ATTEND Internal Medicine